=== PATIENT | female | born 1955 | race Caucasian/White ===

== ENCOUNTER 2019-09-21 12:53 | Outpatient (CLI) | payer OTHER, SELFPAY ==
--- NOTE | ~2019-09-21 | MM_ITS ---
EXAMINATION: MM screening [facility] BI w constantino HISTORY: Screening mammogram TECHNIQUE: Craniocaudal and mediolateral oblique 3-D tomosynthesis images were obtained and synthetic 2-D images were generated. CAD analysis was submitted and interpreted. COMPARISON: 08/24/2018, 07/29/2016, 10/12/2014 BREAST PARENCHYMAL COMPOSITION: There are scattered areas of fibroglandular density. FINDINGS: There is no evidence of suspicious mass, calcification, or architectural distortion to sugg est malignancy in either breast. There has been no suspicious interval change. IMPRESSION: 1. No mammographic evidence of malignancy. 2. Recommend routine screening mammography in one year. BI-RADS Category 1: Negative Reviewed, dictated and finalized at location A.
== END 2019-09-21 12:54 | disposition home or self-care (01) ==
PROVIDERS: PCP Internal Medicine; Visit Provider Internal Medicine
DX: Z12.31 Encounter for screening mammogram for malignant neoplasm of breast (principal)
CPT/HCPCS: 77063; 77067

== ENCOUNTER 2020-04-24 09:16 | Outpatient (CLI) | payer OTHER, MEDICARE, SELFPAY ==
[2020-04-24 09:58] LABS: Alanine Aminotransferase 15 U/L (4-35); Albumin Level 3.7 g/dL (3.5-5.1); Alkaline Phosphatase 59 U/L (38-126); Anion Gap 3 mmol/L (8-16); Aspartate Amino Transferase 28 U/L (14-36); Blood Urea Nitrogen 19 mg/dL (7-17); Calcium 9.2 mg/dL (8.4-10.2); Carbon Dioxide 32 mmol/L (22-30); Chloride 105 mmol/L (98-107); Cholesterol 206 mg/dL (0-200); Estimated Glomerular Filt Rate > 60; Glucose 71 mg/dL (65-105); HDL Direct 98 mg/dL; Potassium 4.9 mmol/L (3.4-5.0); Sodium 140 mmol/L (137-145); Triglycerides 50 mg/dL (<150)
[2020-04-24 10:09] LABS: LDL Cholesterol Direct 87 mg/dL
[2020-04-24 10:25] LABS: Free T4 Free Thyroxine 0.81 ng/mL (0.78-2.19)
== END 2020-04-24 09:17 | disposition home or self-care (01) ==
PROVIDERS: PCP Internal Medicine; Visit Provider Nurse Practitioner
DX: R63.4 Abnormal weight loss (principal); Z79.899 Other long term (current) drug therapy
CPT/HCPCS: 36415; 80053; 80061; 84439; 84443

== ENCOUNTER 2020-10-24 12:14 | Outpatient (CLI) | payer OTHER, MEDICARE, SELFPAY ==
[2020-10-24 13:05] LABS: LDL Cholesterol Direct 96 mg/dL
[2020-10-24 13:07] LABS: Alanine Aminotransferase 17 U/L (4-35); Albumin Level 4.2 g/dL (3.5-5.1); Alkaline Phosphatase 69 U/L (38-126); Anion Gap 3 mmol/L (8-16); Aspartate Amino Transferase 37 U/L (14-36); Bilirubin,Total 2.1 mg/dL (0.2-1.3); Blood Urea Nitrogen 17 mg/dL (7-17); Calcium 9.2 mg/dL (8.4-10.2); Carbon Dioxide 33 mmol/L (22-30); Chloride 104 mmol/L (98-107); Cholesterol 249 mg/dL (0-200); Estimated Glomerular Filt Rate > 60; Glucose 87 mg/dL (65-105); Potassium 4.2 mmol/L (3.4-5.0); Sodium 140 mmol/L (137-145); Triglycerides 58 mg/dL (<150)
[2020-10-24 13:41] LABS: Vitamin D 25 Hydroxy 43.1 ng/mL
[2020-10-24 13:43] LABS: HDL Direct 114 mg/dL
== END 2020-10-24 12:15 | disposition home or self-care (01) ==
PROVIDERS: PCP Internal Medicine; Visit Provider Nurse Practitioner
DX: Z13.220 Encounter for screening for lipoid disorders (principal); Z13.6 Encounter for screening for cardiovascular disorders; M85.89 Other specified disorders of bone density and structure, multiple sites
CPT/HCPCS: 36415; 80053; 80061; 82306

== ENCOUNTER 2021-02-08 15:49 | Outpatient (CLI) | payer OTHER, SELFPAY ==
--- NOTE | ~2021-02-08 | MM_ITS ---
EXAMINATION: MM screening [facility] w constantino HISTORY: Screening TECHNIQUE: Craniocaudal and mediolateral oblique 3-D tomosynthesis images were obtained and synthetic 2-D images were generated. CAD analysis was submitted and interpreted. COMPARISON: Comparison to multiple prior studies sequentially, with oldest reviewed study dated 03/31. BREAST PARENCHYMAL COMPOSITION: The breasts are heterogeneously dense, which may obscure small masses . FINDINGS: There is no evidence of suspicious mass, calcification, or architectural distortion to sugg est malignancy in either breast. There has been no suspicious interval change. IMPRESSION: 1. No mammographic evidence of malignancy. 2. Recommend routine screening mammography in one year. BI-RADS Category 1: Negative Reviewed, dictated and finalized at location A.
== END 2021-02-08 15:50 | disposition home or self-care (01) ==
LOC: ANHIMG 15:51
PROVIDERS: PCP Internal Medicine; Visit Provider Internal Medicine
DX: Z12.31 Encounter for screening mammogram for malignant neoplasm of breast (principal)
CPT/HCPCS: 77063; 77067

== ENCOUNTER → 2021-04-19 12:45 | Outpatient (CLI) | payer OTHER, MEDICARE, SELFPAY ==
--- NOTE | ~2021-04-19 | XR_ITS ---
EXAMINATION: XR cervical spine min 6V DATE: 04/19/2021 13:32 INDICATION: Cervical radiculopathy. TECHNIQUE: 8 views of cervical spine including flexion and extension views were obtained. COMPARISON: None. FINDINGS: There is 2 mm anterolisthesis of C6 on C7. There is 11 degrees dextroscoliosis of cervical spine. Vertebral body heights are normal. There is mildly decreased disc height at C2-C3, C3-C4, and C4-C5 and moderately decreased disc height at C6-C7. There is no abnormal motion with flexion or exte nsion. There is multilevel facet joint osteoarthritis, severe at C6-C7 and C7-T1. There is multilevel uncovertebral joint osteoarthritis, severe bilaterally at C3-C4 and C4-C5. On the right, there is mo derate neural foraminal stenosis from C3-C4 through C6-C7. On the left, there is mild neural foramina l stenosis from C3-C4 through C5-C6 and moderate neural foraminal stenosis at C6-C7. There is mild ce ntral canal stenosis at C6-C7. No prevertebral soft tissue swelling. IMPRESSION: 1. Moderate cervical spondylosis. 2. Cervical dextroscoliosis. Reviewed, dictated and finalized at location A.
== END ==
PROVIDERS: PCP Internal Medicine
DX: M99.01 Segmental and somatic dysfunction of cervical region (principal); M47.22 Other spondylosis with radiculopathy, cervical region
CPT/HCPCS: 72052

== ENCOUNTER 2021-10-02 10:48 | Emergency (ER) | payer OTHER, MEDICARE, SELFPAY ==
--- NOTE | ~2021-10-02 | CT_ITS ---
EXAMINATION: CT abdomen pelvis w con INDICATION: Abdominal pain, nausea, vomiting, diarrhea TECHNIQUE: Computed tomographic images of the abdomen and pelvis were obtained after the administrati on of 100 cc of Omnipaque 350 intravenous contrast. The dose-length product (DLP) was 01/24/2019 mGy-c m. Automated exposure control and iterative reconstruction technique were employed. COMPARISON: 01/24/2019 FINDINGS: A 10 mm nodule of the left lower lobe is new since the comparison examination. The liver, p ancreas, gallbladder, and adrenal glands are normal. There is a chronic 2.5 cm rim calcified cyst of the spleen, likely reflecting old infection or old hematoma. There is mild enlargement of the common bile duct. The kidneys are unremarkable. No pathologically enlarged abdominal or pelvic lymph nodes a re identified. There is no free intraperitoneal gas or evidence of bowel obstruction. There is mild w all thickening involving multiple nondistended loops of small bowel. A greater than expected amount o f liquid stool is also seen in the colon. There is mild lumbar spondylosis. IMPRESSION: 1. Findings suggestive of enterocolitis. 2. Mild enlargement of the common bile duct of unclear significance. 3. New 10 mm nodule of left lower lobe which could be benign or malignant (primary bronchogenic carci noma versus metastatic disease). Nonemergent dedicated CT of the chest is recommended. Reviewed, dictated and finalized at location B. IMPRESSION: 1. Findings suggestive of enterocolitis. 2. Mild enlargement of the common bile duct of unclear significance. 3. New 10 mm nodule of left lower lobe which could be benign or malignant (prim ilana bronchogenic carcinoma versus metastatic disease). Nonemergent dedicated CT of the chest is recommended.
[2021-10-02 10:50] VITALS: BP 98/76; PULSE 71; RESP 16; TEMP 36.6; O2SAT 100
[2021-10-02 12:36] LABS: Basophils Percent Auto 0.5 % (0.2-1.2); Eosinophils Percent Auto 0.8 % (0-4.4); Hematocrit 40.2 % (37.0-47.0); Hemoglobin 13.9 g/dL (12.0-15.0); Lymphocytes Absolute Auto 0.71 K/mm3 (0.9-3.2); Mean Corpuscular HGB Conc 34.6 g/dl (32-36); Mean Corpuscular Hemoglobin 30.5 pg (26-34); Mean Corpuscular Volume 88.4 fl (80-100); Mean Platelet Volume 9.6 fl (7.4-10.4); Monocytes Absolute Auto 0.4 K/mm3 (0.1-0.6); Monocytes Percent Auto 11.2 % (2.6-8.5); Neutrophils Absolute Auto 2.6 K/mm3 (1.3-6.7); Neutrophils Percent Auto 68.5 % (45.5-73.1); Platelet Count Result 200 k/mm3 (150-375); Red Blood Count 4.55 M/mm3 (4.2-5.4); Red Cell Distribution Width 13.3 % (11.5-14.5); White Blood Count 3.7 K/mm3 (4.5-10.0)
[2021-10-02 12:43] LABS: Alanine Aminotransferase 30 U/L (4-35); Alkaline Phosphatase 72 U/L (38-126); Anion Gap 5 mmol/L (8-16); Aspartate Amino Transferase 46 U/L (14-36); Bilirubin,Total 1.6 mg/dL (0.2-1.3); Blood Urea Nitrogen 18 mg/dL (7-17); Calcium 8.8 mg/dL (8.4-10.2); Carbon Dioxide 25 mmol/L (22-30); Chloride 104 mmol/L (98-107); Estimated CRCL calculation 62 ml/min; Estimated Glomerular Filt Rate > 60; Glucose 104 mg/dL (65-110); Lipase 56 U/L (23-300); Sodium 134 mmol/L (137-145)
--- NOTE | 2021-10-02 12:48 | ED.GENADULT ---
HPI - General Adult General Chief complaint: Nausea/Vomiting/Diarrhea Stated complaint: Vomiting and Diarrhea Since Thursday Time Seen by Provider: 10/02/21 12:15 Source: patient History of Present Illness HPI narrative: 66-year-old female presenting to the emergency department for evaluation of nausea vomiting diarrhea and associated abdominal pain. Patient states the symptoms began Thursday and have persisted. Patient also does report associated lightheaded and dizziness. Patient's pain is epigastric and right upper quadrant. Patient denies any prior history of gallbladder disease. Patient denies any prior history of pancreatitis and states she does not drink alcohol frequently. Related Data Allergies Allergy/AdvReac Type Severity Reaction Status Date / Time No Known Allergies Allergy Verified 10/02/21 12:08 Review of Systems Review of Systems: CONSTITUTIONAL: Denies fever, chills, or sweats. EYES: Denies visual changes, redness, or discharge. ENT: Denies rhinorrhea, congestion, sore throat, or otalgia. CARDIOVASCULAR: Denies chest pain, palpitations, or edema. RESPIRATORY: Denies cough or dyspnea. GASTROINTESTINAL: Reports nausea vomiting diarrhea GENITOURINARY: Denies dysuria or hematuria. SKIN: Denies rash or itching. MUSCULOSKELETAL: Denies back pain, joint pain, or myalgia. NEUROLOGIC: Denies headache, numbness, or weakness. PMFSH Past Medical History Medical History (Updated 10/02/21 @ 13:55 by Luis Fernando Obregon MD) Anxiety History of vaginal delivery Scoliosis Surgical History Surgical History History of ankle surgery History of surgery on wrist History of tubal ligation Family History Family History Father Hypertension Family history of hypercholesterolemia Family history of throat cancer Mother Family history of elevated blood lipids Family history of lung cancer Other Family history of heart disease in male family member before age 55 Family history of malignant neoplasm Social History Social History (Updated 05/03/21 @ 10:14 by Roberta Vo [facility]) Smoking status: Never smoker Second hand tobacco smoke exposure: No Alcohol intake: current Substance use: never Substance use type: does not use Exam Narrative: APPEARANCE: Well appearing, no pain, no distress, well-nourished. HEAD: normocephalic, atraumatic. EYES: PERRLA/EOMI, conjunctivae clear. NOSE: Normal no drainage NECK: Supple. No adenopathy, no masses. RESPIRATORY: Airway patent, respirations nonlabored. Clear to auscultation bilaterally, no rales, rhonchi, wheezing. CARDIOVASCULAR: Regular rate and rhythm without murmurs rubs or gallops. ABDOMINAL: Soft normal bowel sounds. Some epigastric and right upper quadrant tenderness to palpation. MUSCULOSKELETAL: Moves all extremities. Strength/ROM intact, No edema, No calf tenderness. SKIN: Warm, dry. Normal Color Course Course Emergency Course: Patient was updated the results of the labs and imaging. Patient did feel improved with treatment. Patient was encouraged to have close follow-up with her primary care physician and also informed on reasons to return to the emergency department. All questions concerns were addressed. Vital Signs Vital signs: Vital Signs Temperature 97.8 F 10/02/21 10:50 Pulse Rate 71 10/02/21 10:50 Respiratory Rate 16 10/02/21 10:50 Blood Pressure 98/76 L 10/02/21 10:50 Pulse Oximetry 100 10/02/21 10:50 Temperature 97.8 F 10/02/21 10:50 Pulse Rate 76 10/02/21 13:18 Respiratory Rate 16 10/02/21 10:50 Blood Pressure 107/63 10/02/21 13:18 Pulse Oximetry 100 10/02/21 10:50 Medical Decision Making Vital Signs Vital Signs: Vital Signs Temperature 97.8 F 10/02/21 10:50 Pulse Rate 71 10/02/21 10:50 Respiratory Rate 16 10/02/21 10:50 Blood Pressure 98/76 L 10/02/21 10:50 Pulse
[2021-10-02 12:55] LABS: Add Urine Microscopic? YES; Appearance Urine Cloudy (Clear); Bilirubin Urine Negative (Negative); Blood Urine Negative (Negative); Color Urine Yellow (Yellow); Glucose Urine UA Negative (Negative); Ketones Urine Trace mg/dL (Negative); Leukocyte Esterase Ur Negative LEU/UL (Negative); Mucus Urine Heavy /lpf; Nitrate Urine Negative (Negative); Protein Urine Negative (Negative); Specific Grav Ur 1.025 (1.001-1.035); Squamous Epithelial Cell Urine Rare /hpf (Few); Urobilinogen Urine Negative mg/dL (<2.0); WBC Urine 0-3 /hpf
[2021-10-02 13:17] VITALS: BP 114/70; BP 117/68; PULSE 58; PULSE 64
[2021-10-02 13:18] VITALS: BP 107/63; PULSE 76
== END 2021-10-02 14:08 | disposition home or self-care (01) ==
PROVIDERS: Emergency Provider Emergency Medicine; PCP Internal Medicine
DX: R10.84 Generalized abdominal pain (principal); R11.2 Nausea with vomiting, unspecified; R91.1 Solitary pulmonary nodule; F41.9 Anxiety disorder, unspecified
CPT/HCPCS: 36415; 74177; 80053; 81001; 83690; 85025; 99284; Q9967

== ENCOUNTER → 2021-10-10 11:24 | Outpatient (CLI) | payer OTHER, MEDICARE, SELFPAY ==
--- NOTE | ~2021-10-10 | CT_ITS ---
EXAMINATION:CT diagnostic chest wo con DATE: 10/10/2021 11:41 INDICATION: Solitary pulmonary nodule. TECHNIQUE: Computed tomography (CT) of the chest was performed without intravenous contrast. Automate d exposure control and iterative reconstruction technique were employed. The dose-length product (DLP ) was 46.03 mGy-cm. COMPARISON: CT abdomen and pelvis 10/02/2021, 01/24/2019 FINDINGS: There is mild scarring at the lung apices. There is an 11 mm nodule in left lower lobe. The re is a 2 mm nodule in right upper lobe. No pleural effusion. The heart size is normal. No pericardia l effusion. There is a 2.5 cm peripherally calcified mass in the spleen, likely an old hematoma or ol d infection. There is severe cervical and upper thoracic spondylosis. IMPRESSION: 1. 11 mm left lung lower lobe nodule suspicious for primary bronchogenic carcinoma. CT-guided biopsy is recommended. Reviewed, dictated and finalized at location A. IMPRESSION: 1. 11 mm left lung lower lobe nodule suspicious for primary bronchogenic carci noma. CT-guided biopsy is recommended.
== END ==
PROVIDERS: PCP Internal Medicine; Visit Provider Nurse Practitioner
DX: R91.1 Solitary pulmonary nodule (principal)
CPT/HCPCS: 71250

== ENCOUNTER 2021-10-21 08:45 | Outpatient (CLI) | payer OTHER, MEDICARE, SELFPAY ==
[2021-10-17 09:44] VITALS: BMI 20.2
--- NOTE | 2021-10-17 09:45 | PC.NURSE ---
Pre Radiology instructions Report to the Outpatient Waiting Room, entrance under the green pavilion located off [facility], at time __9:00AM on date __10/21/21 . Procedure Time: ___11:00AM . One visitor will be allowed to accompany the patient into the hospital. The visitor will be instructed to remain with patient at all times or leave the building. We will allow the visitor to come back to the postoperative area when patient is ready. You and your visitor will be asked a series of questions to screen for COVID 19 for your protection. A mask is required within the hospital. Pre-procedure COVID Testing Requirements: No COVID Test needed if: (proof is required; if not received patient will have Rapid Test prior to entry)- Patient has received COVID Vaccine at least 14 days prior to procedure date or- Patient has positive COVID test result within last 90 days of procedure date. COVID Test needed if above criteria is not met If not COVID vaccinated a COVID test must be conducted within 72 hours of surgery and patient is asked to isolate self from time of testing until procedure. You will go to the [place] [facility] for your COVID testing. The [facility] site is located at the corner of [address] from [facility]. You will only be called if COVID results are positive and your surgeon may reschedule your elective procedure date Patients are to have no food or drink 6 hours prior to procedure time Driving will be restricted after the procedure, you must have a person to drive you home. Labs will be drawn in preop area and once reviewed, you will be taken to radiology area for procedure. When the procedure is completed, you will be taken to outpatient where you will be monitored for several hours. You may have one visitor in this area. Other than holding anti-coagulants, patient may take other medication(s) as scheduled. Prior to your appointment date patients are instructed to hold anti-coagulants after discussing with ordering provider to stop. If unable to discontinue anti-coagulants please notify radiologist. No aspirin or warfarin (Coumadin) for 7 days prior to the procedure. No clopidogrel (Plavix), ticagrelor (Brilinta), prasugrel (Effient) or dabigatran (Pradaxa) for 5 days prior to the procedure. No rivaroxaban (Xarelto), apixaban (Eliquis), dipyridamole (Aggrenox or Persantine) or cilostazol (Pletal) for 2 days prior to the procedure. Medications to discontinue per physician: NONE Date to take last dose: Please leave all valuables, including medications, at home the day of procedure. The hospital will not accept responsibility for valuables. Wear comfortable, loose fitting clothing. Follow any additional instructions given to you from ordering provider. Telephone instructions given to ___PATIENT and asked if any additional questions and then verbalized understanding. Patient advised to call scheduling provider office or registration scheduling [phone] if any additional questions.
[2021-10-21] VITALS (9 sets, daily range): BP systolic 119–139; BP diastolic 65–83; PULSE 55–62; RESP 16–18; TEMP 36–36.6; O2SAT 98–100
--- NOTE | ~2021-10-21 | CT_ITS ---
EXAMINATION: CT biopsy lung w/imaging DATE: 10/21/2021 12:07 INDICATION: Left lung lower lobe nodule. TECHNIQUE: The procedure including the risks, benefits, and alternatives and possibility of chest tub e placement were discussed with the patient. Risks discussed included infection, approximately 1/20 r isk of symptomatic hemorrhage beyond mild hemoptysis, approximately 1/3 risk of pneumothorax, approxi mately 1/10 risk of pneumothorax severe enough to warrant chest tube placement, and rarely . The patient understood the risks and agreed to proceed. The patient was placed prone. The skin overlyin g the left lung lower lobe was prepped and draped in sterile fashion. Anesthetic was administered wi th 1% lidocaine subcutaneously. A 19 gauge outer needle was advanced under CT guidance to the lesion of interest. A 20 gauge core biopsy needle was then used to obtain 3 core biopsy specimens. The need le was removed and the entry site was cleaned and dressed. The mA was adjusted according to patient s ize. Iterative reconstruction technique was employed. The dose-length product was 218.54 mGy-cm. Afte r the biopsy, the patient experienced hemoptysis. FINDINGS: CT images demonstrate the outer needle tip adjacent to an 11 mm nodule in left lung lower l obe. IMPRESSION: 1. CT-guided core needle biopsy of an 11 mm nodule in left lung lower lobe. Reviewed, dictated and finalized at location A.
--- NOTE | ~2021-10-21 | XR_ITS ---
EXAMINATION: XR chest 1V DATE: 10/21/2021 12:01 INDICATION: Left lung nodule status post percutaneous biopsy. TECHNIQUE: A single frontal view of the chest was obtained. COMPARISON: Chest 2 views 09/23/2016 FINDINGS: There is mild scarring at the lung bases. There are airspace opacities in left lower lobe. No pleural effusion or pneumothorax. The heart size is normal. IMPRESSION: 1. Airspace opacities in left lung lower lobe, consistent with postbiopsy hemorrhage. Reviewed, dictated and finalized at location A. IMPRESSION: 1. Airspace opacities in left lung lower lobe, consistent with postbiopsy hemor rhage.
--- NOTE | ~2021-10-21 | XR_ITS ---
EXAMINATION: XR chest 1V portable DATE: 10/21/2021 12:56 INDICATION: Left lung nodule status post percutaneous biopsy. TECHNIQUE: A single frontal view of the chest was obtained. COMPARISON: Chest single view at 11:58 AM FINDINGS: There is mild scarring at the lung apices. There are airspace opacities in left lower lobe. No pleural effusion or pneumothorax. The heart size is normal. IMPRESSION: 1. Stable airspace opacities in left lung lower lobe, consistent with postbiopsy hemorrhage. Reviewed, dictated and finalized at location A. IMPRESSION: 1. Stable airspace opacities in left lung lower lobe, consistent with postbiops y hemorrhage.
--- NOTE | ~2021-10-21 | XR_ITS ---
EXAMINATION: XR chest 1V portable DATE: 10/21/2021 14:47 INDICATION: Left lung nodule status post percutaneous biopsy. TECHNIQUE: A single frontal view of the chest was obtained. COMPARISON: Chest single view at 12:51 PM FINDINGS: There is mild scarring at the lung apices. There are mild airspace opacities in left lower lobe. No pleural effusion or pneumothorax. The heart size is normal. IMPRESSION: 1. Stable mild airspace opacities in left lower lobe, consistent with postbiopsy hemorrhage. Reviewed, dictated and finalized at location A. IMPRESSION: 1. Stable mild airspace opacities in left lower lobe, consistent with postbiops y hemorrhage.
[2021-10-21 10:35] LABS: INR 1.1; Prothrombin Time 13.5 Seconds (11.1-14.7)
--- NOTE | 2021-10-21 12:25 | SUR.PHASEII ---
1215- pt family member updated.
--- NOTE | 2021-10-21 14:51 | SUR.PHASEII ---
1450- Dr Salcido called post op and reports that second xr was good. patient can be discharged.
== END 2021-10-21 15:10 | disposition home or self-care (01) ==
PROVIDERS: PCP Internal Medicine; Visit Provider Radiology Diagnostic Radiology
PROC: BB24ZZZ Computerized Tomography (CT Scan) of Bilateral Lungs (ICD-10-PCS; CPT 32408; principal; 2021-10-21 11:00)
DX: R91.1 Solitary pulmonary nodule (principal); R91.8 Other nonspecific abnormal finding of lung field
CPT/HCPCS: 32408; 36415; 71045; 85610; 88305; 88312

== ENCOUNTER 2021-11-01 14:09 | Outpatient (CLI) | payer OTHER, MEDICARE, SELFPAY ==
--- NOTE | ~2021-11-01 | DEXA_ITS ---
Bone Density Report Name: JOSE J THOMAS Age: 66 Sex: Female Ethnicity: White Date of : 1955 Indication: postmenopausal; screening for osteoporosis; height loss; prior fracture; Referring Provider: JUAN ALBERTO BOYCE Study: Bone densitometry was performed. Exam Date: November 01, 2021 Accession number: [id number] Bone Density: Region BMD T-score Z-score Classification AP Spine(L1-L4) 1.048 0.0 1.9 Normal Femoral Neck (Left) 0.614 -2.1 -0.5 Osteopenia Total Hip (Left) 0.770 -1.4 -0.1 Osteopenia World Health Organization criteria for BMD impression classify patients as: Normal (T-score at or above -1.0), Osteopenia (T-score between -1.0 and -2.5), or Osteoporosis (T-score at or below -2.5). 10-year Fracture Risk(1): Major Osteoporotic Fracture 17% Hip Fracture 3.0% Reported Risk Factors: [place] (), Neck BMD=0.614, BMI=21.6, previous fracture (1) FRAX(R) Version 3.08. Fracture probability calculated for an untreated patient. Fracture probability may be lower if the patient has received treatment. Previous Exams: Region Exam Age BMD T-score BMD Change BMD Change Date g/cm2 vs Baseline vs Previous Total Hip(Left) 11/01/2021 66 0.770 -1.4 -0.055 (-6.6%) -0.055 (-6.6%) 10/12/2018 63 0.824 -1.0 *Denotes significance at 95% confidence level, LSC for Total Hip = 0.027 g/cm2 Clinical Information Provided by Patient: Has had a low trauma fracture Has used the following medications: Prolia (i.e. denosumab), Vitamin D, Calcium Patient maximum height was 66 Menopause Age: 46 Onset of menses at age 13 Number of children 0 Impression: The patient has low bone mass, based on the Left Femoral Neck T-score. The patient has an estimated ten-year risk of hip fracture of 3% and an estimated ten-year risk of major fracture of 17%, based on the WHO FRAX algorithm. The patient has risk factors, including: previous fracture. The BMD for the Total Hip(Left) decreased, changing by -6.6% since the last DXA exam. Discussion: BONE DENSITY IS LOW AT ONE OR MORE SKELETAL SITES. THE PATIENT'S BMD AND CLINICAL RISK FACTORS CONTRIBUTE TO THIS PATIENT'S INCREASED RISK OF FRACTURE. This patient's lowest T-score is low at one or more skeletal sites. It meets the World Health Organization's (WHO) criteria for ?low bone mass? (T-score between -1.0 and -2.5). The patient's 10-year risk of hip fracture as calculated by FRAX exceeds the threshold where pharmacological therapy is recommended by the National Osteoporosis Foundation (NOF). However, all treatment decision
== END 2021-11-01 14:10 | disposition home or self-care (01) ==
PROVIDERS: PCP Internal Medicine; Visit Provider Nurse Practitioner
DX: Z78.0 Asymptomatic menopausal state (principal); M85.852 Other specified disorders of bone density and structure, left thigh
CPT/HCPCS: 77080

== ENCOUNTER 2021-12-17 09:54 | Outpatient (CLI) | payer OTHER, MEDICARE, SELFPAY ==
--- NOTE | 2021-12-17 10:38 | ECG_ITS ---
Measurements Intervals [place] Rate: 59 P: 35 [place]: 147 QRS: 43 QRSD: 72 T: 81 QT: 404 QTc: 402 Interpretive Statements SINUS BRADYCARDIA WITH SINUS ARRHYTHMIA POSSIBLE SEPTAL MYOCARDIAL INFARCTION OF INDETERMINATE AGE Electronically Signed On 12-17-2021 11:21:24 CDT by Ambrocio Mancia M.D.
[2021-12-17 11:11] LABS: Basophils Percent Auto 0.7 % (0.2-1.2); Eosinophils Absolute Auto 0.1 K/mm3 (0-0.3); Eosinophils Percent Auto 1.9 % (0-4.4); Hematocrit 39.4 % (37.0-47.0); Hemoglobin 13.5 g/dL (12.0-15.0); Immature Granulocyte Absolute 0.01 K/mm3 (0.00-0.031); Immature Granulocyte Percent A 0.2 % (0-0.5); Lymphocytes Absolute Auto 1.47 K/mm3 (0.9-3.2); Lymphocytes Percent Auto 27.4 % (18.3-44.2); Mean Corpuscular HGB Conc 34.3 g/dl (32-36); Mean Corpuscular Hemoglobin 30.6 pg (26-34); Mean Corpuscular Volume 89.3 fl (80-100); Mean Platelet Volume 9.8 fl (7.4-10.4); Monocytes Absolute Auto 0.5 K/mm3 (0.1-0.6); Monocytes Percent Auto 8.8 % (2.6-8.5); Neutrophils Absolute Auto 3.3 K/mm3 (1.3-6.7); Platelet Count Result 241 k/mm3 (150-375); Red Blood Count 4.41 M/mm3 (4.2-5.4); Red Cell Distribution Width 12.7 % (11.5-14.5); White Blood Count 5.4 K/mm3 (4.5-10.0)
[2021-12-17 11:23] LABS: Partial Thromboplastin Time 26.8 SECONDS (22.3-36.8)
== END 2021-12-17 09:55 | disposition home or self-care (01) ==
PROVIDERS: PCP Internal Medicine; Visit Provider Urology
DX: N39.3 Stress incontinence (female) (male) (principal); Z01.818 Encounter for other preprocedural examination; R00.1 Bradycardia, unspecified
CPT/HCPCS: 36415; 85025; 85730; 86850; 86900; 86901; 87077; 87086; 87186; 93005

== ENCOUNTER 2022-05-29 11:04 | Outpatient (CLI) | payer OTHER, MEDICARE, SELFPAY ==
--- NOTE | ~2022-05-29 | MM_ITS ---
EXAMINATION: MM screening [facility] BI w constantino HISTORY: Screening TECHNIQUE: Craniocaudal and mediolateral oblique 3-D tomosynthesis images were obtained and synthetic 2-D images were generated. CAD analysis was submitted and interpreted. COMPARISON: Comparison to multiple prior studies sequentially, with oldest reviewed study dated 08/2014. BREAST PARENCHYMAL COMPOSITION: The breasts are heterogeneously dense, which may obscure small masses FINDINGS: There is no evidence of suspicious mass, calcification, or architectural distortion to sugg est malignancy in either breast. There has been no suspicious interval change. IMPRESSION: 1. No mammographic evidence of malignancy. 2. Recommend routine screening mammography in one year. BI-RADS Category 1: Negative Reviewed, dictated and finalized at location A. [facility] REPRESENTATIVE
== END 2022-05-29 11:05 | disposition home or self-care (01) ==
LOC: ANHIMG 11:06
PROVIDERS: PCP Internal Medicine; Visit Provider Internal Medicine
DX: Z12.31 Encounter for screening mammogram for malignant neoplasm of breast (principal)
CPT/HCPCS: 77063; 77067

== ENCOUNTER 2022-07-29 13:14 | Outpatient (CLI) | payer OTHER, MEDICARE, SELFPAY ==
[2022-07-29 15:29] LABS: Basophils Absolute Auto 0.1 K/mm3 (0.0-0.1); Eosinophils Absolute Auto 0.1 K/mm3 (0-0.3); Eosinophils Percent Auto 2.2 % (0-4.4); Hemoglobin 13.4 g/dL (12.0-15.0); Immature Granulocyte Absolute 0.02 K/mm3 (0.00-0.031); Immature Granulocyte Percent A 0.3 % (0-0.5); Lymphocytes Absolute Auto 1.94 K/mm3 (0.9-3.2); Lymphocytes Percent Auto 30.7 % (18.3-44.2); Mean Corpuscular HGB Conc 32.7 g/dl (32-36); Mean Corpuscular Hemoglobin 30.2 pg (26-34); Mean Corpuscular Volume 92.3 fl (80-100); Mean Platelet Volume 9.9 fl (7.4-10.4); Monocytes Absolute Auto 0.4 K/mm3 (0.1-0.6); Monocytes Percent Auto 6.8 % (2.6-8.5); Neutrophils Absolute Auto 3.7 K/mm3 (1.3-6.7); Platelet Count Result 248 k/mm3 (150-375); Red Blood Count 4.44 M/mm3 (4.2-5.4); Red Cell Distribution Width 12.9 % (11.5-14.5); White Blood Count 6.3 K/mm3 (4.5-10.0)
[2022-07-29 15:37] LABS: Alanine Aminotransferase 22 U/L (6-35); Albumin Level 4.2 g/dL (3.5-5.1); Alkaline Phosphatase 72 U/L (38-126); Anion Gap 5 mmol/L (8-16); Aspartate Amino Transferase 33 U/L (14-36); Bilirubin,Total 1.1 mg/dL (0.2-1.3); Blood Urea Nitrogen 13 mg/dL (7-17); Calcium 8.8 mg/dL (8.4-10.2); Carbon Dioxide 30 mmol/L (22-30); Chloride 102 mmol/L (98-107); Estimated Glomerular Filt Rate > 60; Glucose 93 mg/dL (65-110); Potassium 3.9 mmol/L (3.4-5.0); Sodium 137 mmol/L (137-145)
[2022-07-29 15:39] LABS: Partial Thromboplastin Time 27.4 SECONDS (22.3-36.8); Prothrombin Time 13.2 Seconds (11.1-14.7)
== END 2022-07-29 13:15 | disposition home or self-care (01) ==
LOC: ANHSURGERY 14:01
PROVIDERS: PCP Internal Medicine; Visit Provider Urology
DX: Z01.818 Encounter for other preprocedural examination (principal)
CPT/HCPCS: 36415; 80053; 85025; 85610; 85730; 86850; 86900; 86901; 87077; 87086; 87088; 87186

== ENCOUNTER 2022-08-11 02:43 | Day surgery (SDC) | payer OTHER, MEDICARE, SELFPAY ==
--- NOTE | 2022-07-29 13:33 | PC.NURSE ---
Addendum entered by Humaira Newsome RN 07/29/22 15:24: PATIENT AWARE SURGERY TIME IS 0730 NOT 0700 Original Note: PRE-OP INSTRUCTIONS, PLEASE READ CAREFULLY Report to the Outpatient Waiting Room, entrance under the green pavilion located off [facility], at time _0600_ on date _08/11/22_. Planned Procedure Time: _0700_. PACK A SMALL OVERNIGHT BAG AND LEAVE IN THE CAR Time changes happen often and if your time is changed the preop area will call you the afternoon before. - You and your visitor will be asked to self-screen and do not enter if you have any COVID symptoms. - Only one visitor is requested with a max of two and NO children visitors are allowed at this time. - The patient visitor may be requested to leave or wait in car when not with patient due to distancing restrictions. - A mask is optional within the hospital. -VISITING HOURS 8AM-8PM Patients may have clear liquids (water, carbonated beverages, clear teas, apple juice) until 3 hours prior to surgery (0430 AM) with a maximum of 20 ounces. - No food from midnight until time of surgery Take the following medications with a SIP of water the morning of surgery: _CITALOPRAM, ADDERALL _ Medications to discontinue per physician _STATES - VITAMINS/SUPPLEMENTS [address] VILLEGAS, Date to take last dose 08/03/22_ Please no make-up, nail tajik, hairspray, perfume, deodorant, or body powder the day of surgery. No jewelry (including any body piercings) or valuables the day of surgery, leave them at home. Please take a shower or bath the night before, or the morning of, surgery with an antibacterial soap. Wear comfortable, loose fitting clothing. - Jewelry must be removed prior to entering the operating room. Rings and piercings that are not removed may be cut off. - The hospital will not accept responsibility for valuables. - Please leave all valuables, including medications, at home the day of surgery. If you are going home after surgery, a licensed drive away driver must drive you home. - NO public transportation without another adult if you receive anesthesia. - We recommend that an adult stay with you for 24 hours following discharge. - We also recommend that you do not drive, make important decision, drink alcoholic beverages, or take any drugs that were not prescribed by your health care provider for at least 24 hours after your discharge time. Follow any additional instructions given to you from your surgeon. If you or anyone in your household have experienced Covid symptoms in the past week, please notify your surgeon or the nurse liaison at the phone number below for possible testing. Instructions given to _PATIENT_and asked if any additional questions and then verbalized understanding. Patient advised to call surgeon office or pre surgery nurse liaison [phone] if any additional questions.
[2022-07-29 14:17] VITALS: BP 130/72; PULSE 66; RESP 18; TEMP 36.8; O2SAT 100; BMI 20.7
--- NOTE | 2022-08-08 15:02 | PM.IMHP ---
H&P: HPI History of Present Illness Date/Time: 08/08/22 15:02 Chief Complaint: uterine prolapse Narrative: 66-year-old female with uterine prolapse admitted for robotic supracervical hysterectomy and bilateral salpingo-oophorectomy with fish sacral colpopexy and possible sling. Risks and benefits reviewed great detail [facility] Past Medical History Medical History ADD (attention deficit disorder) Anxiety Histoplasmosis History of vaginal delivery Hyperlipidemia Overactive bladder Scoliosis Surgical History Surgical History History of ankle surgery History of surgery on wrist History of tubal ligation Family History Family History Father Hypertension Family history of hypercholesterolemia Family history of throat cancer Mother Family history of elevated blood lipids Family history of lung cancer Sibling Sjogren syndrome with other organ involvement Other Family history of heart disease in male family member before age 55 Family history of malignant neoplasm Social History Social History Smoking status: Never smoker Second hand tobacco smoke exposure: Yes (BROTHER) Alcohol intake: current Alcohol use details: 1/MONTH Substance use: never Substance use type: does not use Lack of Transportation: No Lack of Food: Never True Current Housing: I Have Housing Concerned About Future Housing: No Difficulty Paying Gas/Electric Bills: No Difficulty Paying for Meds: No Currently Unemployed: No Education: Grade School Difficulty w/ Childcare or Family Care: No Living arrangements: with family Spiritual care concerns: No Meds Home Medications and Allergies Home Medications Medication Instructions Recorded Confirmed Type citalopram 20 mg tablet 20 mg PO QAM #90 tabs 05/20/22 07/29/22 Rx solifenacin 5 mg tablet 1 tablet PO QAM 07/10/22 07/29/22 History alendronate 70 mg tablet (Fosamax) 70 mg PO WEEKLY #12 tabs 07/22/22 07/29/22 Rx dextroamphetamine-amphetamine ER 20 mg PO QAM #30 caps 07/25/22 07/29/22 Rx 20 mg 24hr capsule,extend release Immunostart 2 tab-cap QAM 07/29/22 07/29/22 History Vitamin K2+D3 1 tab-cap QAM 07/29/22 07/29/22 History multivitamin 1 tablet QA 07/29/22 07/29/22 History Allergies Allergy/AdvReac Type Severity Reaction Status Date / Time No Known Allergies Allergy Verified 07/29/22 14:09 Exam Const: General: cooperative, healthy appearing and comfortable Nutritional Appearance: average body habitus Orientation/consciousness: oriented to person, oriented to place and oriented to time HENMT: Head: normal to inspection Resp: Effort & Inspection: normal respiratory effort Cardio: Rate: regular rate Rhythm: regular rhythm Heart sounds: S1 normal heart sound present and S2 normal heart sound present GI: Inspection: normal to inspection : Speculum Exam - Vagina: normal appearance of the vagina Speculum Exam - Cervix: normal appearance of the cervix Bimanual exam- vagina & uterus: soft and other ( 2nd to third-degree prolapse present. Cystocele present) Bimanual Exam- Adnexa, other: normal adnexae Assessment and Plan Assessment and plan (1) Uterine prolapse: Code(s): N81.4 - Uterovaginal prolapse, unspecified Status: Acute Plan supracervical robotic hysterectomy and bilateral salpingo-oophorectomy
--- NOTE | 2022-08-10 11:30 | PM.IMHP ---
H&P: HPI History of Present Illness Date/Time: 08/10/22 11:30 Chief Complaint: Pelvic organ prolapse, stress incontinence Narrative: This 66-year-old female with history of pelvic organ prolapse. We resect the fix her prolapse several months ago. She decided to for the procedure. Her prolapse symptoms have worsened. She presents for procedure for her prolapse as well as for stress incontinence Review of Systems Review of Systems: All systems reviewed & are unremarkable except as noted in HPI and below PMFSH Past Medical History Medical History ADD (attention deficit disorder) Anxiety Histoplasmosis History of vaginal delivery Hyperlipidemia Overactive bladder Scoliosis Surgical History Surgical History History of ankle surgery History of surgery on wrist History of tubal ligation Family History Family History Father Hypertension Family history of hypercholesterolemia Family history of throat cancer Mother Family history of elevated blood lipids Family history of lung cancer Sibling Sjogren syndrome with other organ involvement Other Family history of heart disease in male family member before age 55 Family history of malignant neoplasm Social History Social History Smoking status: Never smoker Second hand tobacco smoke exposure: Yes (BROTHER) Alcohol intake: current Alcohol use details: 1/MONTH Substance use: never Substance use type: does not use Lack of Transportation: No Lack of Food: Never True Current Housing: I Have Housing Concerned About Future Housing: No Difficulty Paying Gas/Electric Bills: No Difficulty Paying for Meds: No Currently Unemployed: No Education: Grade School Difficulty w/ Childcare or Family Care: No Living arrangements: with family Spiritual care concerns: No Meds Home Medications and Allergies Home Medications Medication Instructions Recorded Confirmed Type citalopram 20 mg tablet 20 mg PO QAM #90 tabs 05/20/22 07/29/22 Rx solifenacin 5 mg tablet 1 tablet PO QAM 07/10/22 07/29/22 History alendronate 70 mg tablet (Fosamax) 70 mg PO WEEKLY #12 tabs 07/22/22 07/29/22 Rx Immunostart 2 tab-cap QAM 07/29/22 07/29/22 History Vitamin K2+D3 1 tab-cap QAM 07/29/22 07/29/22 History multivitamin 1 tablet QAM 07/29/22 07/29/22 History dextroamphetamine-amphetamine ER 20 mg PO QAM #30 caps 08/08/22 Rx 20 mg 24hr capsule,extend release Allergies Allergy/AdvReac Type Severity Reaction Status Date / Time No Known Allergies Allergy Verified 07/29/22 14:09 Exam Narrative: No acute distress Normal breathing Alert orient x3 Cystocele a +2 [place] at 0 Assessment and Plan Assessment and plan (1) Uterine prolapse: Code(s): N81.4 - Uterovaginal prolapse, unspecified Status: Acute (2) LILLY (stress urinary incontinence, female): Code(s): N39.3 - Stress incontinence (female) (male) Status: Acute Plan Robotic sacral colpopexy and urethral sling. Understands risks of bleeding, infection, damage surrounding organs, damage to the bowel or urinary tract, recurrence of prolapse, postoperative voiding dysfunction including incontinence and retention, vaginal mesh extrusion, urinary tract mesh erosion, obstructive voiding requiring secondary procedure, hip and leg pain, dyspareunia. She agrees to proceed
[2022-08-11] VITALS (12 sets, daily range): BP systolic 103–138; BP diastolic 59–77; PULSE 53–69; RESP 12–20; TEMP 36.1–36.8; O2SAT 97–100
[2022-08-11] MEDS: LACTATED RINGERS 1,000 ML 30 ML IV CONT ×2 (06:30→10:34)
[2022-08-11] MEDS: ACETAMINOPHEN 500 MG TABLET 1000 MG PO (06:31)
[2022-08-11] MEDS: KETOROLAC 15 MG/ML VIAL (*BKC) IV PUSH ×2 (06:31→19:00)
--- NOTE | 2022-08-11 06:56 | WPDANESEPPF ---
Anes - Initial Pre Proc Eval Procedure: Operation Date: 08/11/22 07:30 Proposed Procedures p Robotic Sacrocolpopexy, Urethral Sling - Tristin Jean Baptiste MD s Robotic Assisted Supracervical Hysterectomy With Bilateral Salpingo-Oophorectomy - Ermias Ontiveros MD Date/Time: 08/11/22 06:56 Surgeon: Tristin Jean Baptiste MD Pre Op Diagnosis: midline cystocele uterine prolapse, stress incont Patient Data Age: 66 Gender: F Height: 1.65 m Weight: 54.7 kg Last Vital Signs Temp 36.5 C 08/11/22 06:17 Pulse 66 08/11/22 06:17 Resp 18 08/11/22 06:17 BP 114/69 08/11/22 06:17 Pulse Ox 100 08/11/22 06:17 O2 Del Method Room Air 08/11/22 06:17 Allergies Allergy/AdvReac Type Severity Reaction Status Date / Time No Known Allergies Allergy Verified 07/29/22 14:09 Home Medications Medication Instructions Recorded Confirmed Type citalopram 20 mg tablet 20 mg PO QAM #90 tabs 05/20/22 08/11/22 Rx solifenacin 5 mg tablet 1 tablet PO QAM 07/10/22 08/11/22 History alendronate 70 mg tablet (Fosamax) 70 mg PO WEEKLY #12 tabs 07/22/22 08/11/22 Rx Immunostart 2 tab-cap PO QAM 07/29/22 08/11/22 History Vitamin K2+D3 1 tab-cap QAM 07/29/22 08/11/22 History multivitamin 1 tablet PO QAM 07/29/22 08/11/22 History dextroamphetamine-amphetamine ER 20 mg PO QAM #30 caps 08/08/22 08/11/22 Rx 20 mg 24hr capsule,extend release Patient hx anesthesia problems: none Family hx anesthesia problems: none Results Review: All pre-operative results and documents have been reviewed as part of the pre-operative evaluation. [facility] Past Medical History Medical History ADD (attention deficit disorder) Anxiety Histoplasmosis History of vaginal delivery Hyperlipidemia Overactive bladder Scoliosis Surgical History Surgical History History of ankle surgery History of surgery on wrist History of tubal ligation Family History Family History Father Hypertension Family history of hypercholesterolemia Family history of throat cancer Mother Family history of elevated blood lipids Family history of lung cancer Sibling Sjogren syndrome with other organ involvement Other Family history of heart disease in male family member before age 55 Family history of malignant neoplasm Social History Social History Smoking status: Never smoker Second hand tobacco smoke exposure: Yes (BROTHER) Alcohol intake: current Alcohol use details: 1/MONTH Substance use: never Substance use type: does not use Lack of Transportation: No Lack of Food: Never True Current Housing: I Have Housing Concerned About Future Housing: No Difficulty Paying Gas/Electric Bills: No Difficulty Paying for Meds: No Currently Unemployed: No Education: Grade School Difficulty w/ Childcare or Family Care: No Living arrangements: with family Spiritual care concerns: No Anes - Eval Final PreProcedure Day of Procedure 08/11/22 06:56 Patient weight: normal Heart: regular rate and rhythm Lungs: clear to auscultation Airway: Mallampati scale class 1 Neurological: alert and oriented Last oral intake: >/= 8 hours ASA classification: II Emergent: no Anesthetic plan: proceed Anesthesia type and monitoring: general ETT and standard monitoring Results Review: All pre-operative results and documents have been reviewed as part of the pre-operative evaluation. Informed Consent: The patient's anesthetic plan and its attendant risks and benefits were discussed with the patient/family/POA. Questions were solicited and answers provided to the satisfaction of the patient/family/POA.
--- NOTE | 2022-08-11 07:11 | WPDHPUPDATE1 ---
History and Physical Update Update Date/Time: 08/11/22 07:11 History and Physical has been reviewed, including an updated exam of the patient. There are NO changes in the patient's condition. Risks, benefits, and alternatives have been discussed and questions answered. Patient agrees to proceed with procedure.
--- NOTE | 2022-08-11 07:37 | WPDHPUPDATE1 ---
History and Physical Update Update Date/Time: 08/11/22 07:37 History and Physical has been reviewed, including an updated exam of the patient. There are NO changes in the patient's condition. Risks, benefits, and alternatives have been discussed and questions answered. Patient agrees to proceed with procedure.
[2022-08-11] MEDS: ceFAZolin 2 GM/D5W 50 ML 2 GM/50 ML BAG IVPB (07:41)
[2022-08-11] MEDS: metroNIDAZOLE 500 MG/ISO 100ML 500 MG/100 ML BAG 100 MG IVPB ×3 (07:58→23:08)
--- NOTE | 2022-08-11 08:31 | W.PM.PROC2 ---
Procedure Note - Detailed Date of Procedure 08/11/22 Pre-op Diagnosis midline cystocele uterine prolapse, stress incont Post-op Diagnosis Same Procedure Performed Robotic supracervical hysterectomy and bilateral salpingo-oophorectomy. This was done conjunction Dr. Jean Baptiste robotic supracervical sacral colpopexy Surgeon Ermias Ontiveros MD Anesthesia General Indications this is a 66-year-old female with symptomatic uterine prolapse Findings small uterus with very small ovaries and tubes. Description of Procedure The patient was prepped draped and placed in the dorsal lithotomy position. Under excellent general trach anesthesia doctor Jean Baptiste proceeded to dock the robot. I placed a 16 Sammarinese catheter drained clear urine and the Neville's cannula inserted the cervix attached to the single-tooth to be used later for uterine ablation. After Dr. Jean Baptiste head placed the robot and docked it. I proceeded with hysterectomy. The left round ligament grasped, burned, cut. Anteriorly a bladder flap formed by sharply dissecting the peritoneum and reflecting the bladder caudally from the uterus and cervix to the opposite round ligament which was clamped, burned, cut. Next the infundibulopelvic structure on the left was skeletonized serially clamping burning cutting to remove the ovary and tube and this was brought to the level of previously cut round ligament. In like fashion removing the right adnexa, the infundibulopelvic structure was skeletonized clamping burning cutting and bring this to the round ligament. The cardinal and broad ligaments were then serially skeletonized along left edge of the uterus clamping burning cutting until the uterine vessels could be seen. These were individually clamped, burned, cut. In like fashion the cardinal and broad ligaments on the right were serially skeletonized clamping burning cutting and hugging the cervix uterus until the uterine vessels could be seen on the right. These were individually clamped, burned, cut. At that point a supracervical incision was made and this was then placed in an Endo-Catch Dr. Francisco took over from there. Blood loss to this point was 5cc all sponge, needle, instrument counts were correct. Everything was stable at the time the console Estimated Blood Loss 5 Drains No Packing No Pathology Yes Complications No immediate complications Condition Stable Disposition No change
[2022-08-11] MEDS: BUPIVACAINE/EPINEPHRINE 0.5% 10 ML VIAL INFILTRATE (10:10)
--- NOTE | 2022-08-11 10:31 | W.PM.PROC2 ---
Procedure Note - Detailed Date of Procedure 08/11/22 Pre-op Diagnosis midline cystocele, uterine prolapse, stress incont Post-op Diagnosis Same Procedure Performed Robotic assisted laparoscopic sacral colpopexy Urethral sling Cystoscopy Surgeon Tristin Jean Baptiste MD Anesthesia General Indications A woman with uterine prolapse as well as stress incontinence. She desires surgical correction. She is here for the above. She understands risks of bleeding, infection, diskitis, damage to surrounding organs, bowel injury, bowel obstruction, mesh related complications including exposure and extrusion, postoperative voiding dysfunction including incontinence and retention, need for ancillary procedures, dyspareunia, recurrence of prolapse, and other perioperative intraoperative postoperative complications. She agrees to proceed. Findings See below Description of Procedure She was correctly identified. Informed consent obtained. She from the operating room. She was given general anesthesia. She was given appropriate perioperative antibiotics. She was placed a low lithotomy position. Pressure points were padded. A time-out performed. I marked out the skin 3 fingerbreadths cephalad to the umbilicus. I anesthetized the skin. I incised the skin. I dissected down to the fascia. I grasped the fascia with Rai clamps. I entered the fascia sharply in a Noel type technique. I placed sutures for later fascial closure. I placed a midline trocar. I examined the abdomen. There is no sign of any injury. Under direct vision I placed 2 additional trocars in the right upper quadrant and 2 additional trocars the left upper quadrant. She was placed in steep Trendelenburg. The robot was docked. Her borough coordinator completed their portion of the procedure. Please see that operative report for details. I then sat at the console. The Sizer in the vagina created plane on the anterior and posterior vaginal wall. I took great care not to injure the vagina, bladder, or rectum. I introduced the mesh into the abdomen. I sewed the anterior leaflet of mesh on the anterior vaginal wall. I sewed the posterior leaflet of mesh on the posterior vaginal wall. This was done with several sutures of 2 0 Richardson-Neville. I reflected the colon laterally. I opened the posterior peritoneum over the sacral promontory. I carried this into the cul-de-sac. I freed up the edges for later retroperitonealization. Both ureters were visualized throughout the entire dissection. I located the anterior longitudinal ligament the sacrum. I cleaned off all fatty tissues. I then tensioned my mesh appropriately. I did a vaginal exam the bedside. I assured prolapse reduction without undue tension. I then sewed the proximal leaflet of mesh onto the anterior longitudinal ligament of the sacrum with several sutures of 2 0 Richardson-Neville. I then used a 2 0 Monocryl to completely and meticulously retroperitonealized all mesh. Again the ureter was visualized and kept clear. I allowed the colon to go back to its normal anatomic location. There is no sign of any impingement. The specimen was then removed. All ports removed. Fascia was tied down. Skin was closed with Monocryl and surgical glue. She was repositioned and prepped for urethral sling. I marked out the inner thigh incisions. I anesthetized the skin and made the incisions. I then anesthetized the anterior vaginal wall at the mid urethra. I made a 1 cm incision. I dissected out laterally taking great care not to injure the urethra or the vaginal wall. Changes of atrophic vaginitis were noted, but otherwise vaginal tissues were normal. I passed the helical trocars. I did this 1st on the left and then on the right. This was done from the thigh incision towards the vaginal incision. Sling was connected to the trocars and brought out the thigh incision. I tensioned the sling appropriately. I cut and the plastic sheaths. I closed the incision
[2022-08-11] MEDS: KCL 20 MEQ/D5/0.45% SOD CHL 1,000 ML 100 ML IV CONT (12:03)
[2022-08-11] MEDS: HYDROcodone/acetaminophen (*CRX) 5-325 MG TABLET 1 TAB PO (19:00)
[2022-08-12] MEDS: KCL 20 MEQ/D5/0.45% SOD CHL 1,000 ML 100 ML IV CONT (00:55)
[2022-08-12 05:30] VITALS: BP 97/51; PULSE 58; RESP 16; TEMP 36.6
[2022-08-12] MEDS: HYDROcodone/acetaminophen (*CRX) 5-325 MG TABLET 1 TAB PO ×2 (05:45→10:03)
[2022-08-12] MEDS: KETOROLAC 15 MG/ML VIAL (*BKC) IV PUSH (05:45)
[2022-08-12] MEDS: metroNIDAZOLE 500 MG/ISO 100ML 500 MG/100 ML BAG 100 MG IVPB (06:33)
--- NOTE | 2022-08-12 07:43 | PM.DS ---
DS: Admitting Diagnosis Discharge Date 08/12/2022 Admitting Diagnosis uterine prolapse/stress incontinence DS: Discharge Diagnosis Discharge Diagnosis (1) LILLY (stress urinary incontinence, female): Code(s): N39.3 - Stress incontinence (female) (male) Status: Acute (2) Uterine prolapse: Code(s): N81.4 - Uterovaginal prolapse, unspecified Status: Acute DS: Summary Hospital Course Reason for hospitalization: patient was admitted for robotic supracervical hysterectomy and bilateral salpingo-oophorectomy along with sling and robotic sacral colpopexy Hospital Course: her procedure was unremarkable. Please see Dr. Jean Baptiste and I will review his operative reports. The patient remained afebrile. She was up, voiding without difficulty, ambulating, eating regular diet, and generally without complaints. Time Spent with Patient Time attestation: Total time spent providing and/or coordinating discharge services: Exam Const: General: cooperative, healthy appearing, comfortable and average body habitus Orientation/consciousness: oriented to person, oriented to place and oriented to time HENMT: Head: normal to inspection Resp: Effort & Inspection: normal respiratory effort Cardio: Rate: regular rate Rhythm: regular rhythm Heart sounds: S1 normal heart sound present and S2 normal heart sound present GI: Inspection: normal to inspection and incision ( Wounds are clean dry and intact) DS: Data Data Completed and Pending Pending studies at discharge: Pending at discharge 08/11/22 08:20 Surgical [PTH] Routine Discharge Plan Discharge Patient Disposition: Home, Self-Care Discharge Instructions: No lifting >20lb, exercise for 6 weeks No tub bath or pool for 2 weeks No intercourse for 6 weeks Stand Alone Forms: General Discharge Instructions Follow-up/Referrals: Tristin Jean Baptiste MD [Physician] - (6 weeks) Ermias Kirkland MD [Physician] - Discharge Medications: New docusate sodium [Colace] 100 mg capsule 100 mg PO BID Qty: 60 0RF hydrocodone-acetaminophen 5-325 mg tablet 1 tablet PO Q6H PRN (Reason: pain) Qty: 20 0RF Continued solifenacin 5 mg tablet 1 tablet PO QAM multivitamin Tablet 1 tablet PO QAM Immunostart 2 tab-cap PO QAM Vitamin K2+D3 1 tab-cap QAM citalopram 20 mg tablet 20 mg PO QAM Qty: 90 1RF Rx Instructions: TAKE 1 TABLET BY MOUTH DAILY alendronate [Fosamax] 70 mg tablet 70 mg PO WEEKLY Qty: 12 2RF Label Comments: TAKES ON MONDAYS dextroamphetamine-amphetamine 20 mg capsule,extended release 24hr 20 mg PO QAM Qty: 30 0RF
--- NOTE | 2022-08-12 07:46 | PM.GYNPNOP ---
OPENER - A/P Postoperative Procedures: Procedures Operation Date: 08/11/22 07:30 Actual Procedure Side Surgeon p Robotic Sacrocolpopexy, Urethral Sling, Cystoscopy Not Applicable Tristin Jean Baptiste MD s Robotic Assisted Supracervical Hysterectomy With Bilateral Salpingo-Oophorectomy Bilateral Ermias Ontiveros MD Postoperative day: 1 Postoperative status: doing well Postoperative plan: routine post-op care, advance diet and discharge Time Spent With Patient Time: Total time spent is greater than 50% in coordination of care (as documented) at patient's floor/unit and/or counseling patient: Time with patient: less than 15 minutes OPENER- PN:Subj Post-Op Subjective Date/time seen: 08/12/22 07:46 Subjective: patient reports feeling better, patient has no complaints and patient desires discharge Exam Const: General: cooperative, healthy appearing and comfortable Nutritional Appearance: average body habitus Orientation/consciousness: oriented to person, oriented to place and oriented to time HENMT: Head: normal to inspection Resp: Effort & Inspection: normal respiratory effort Cardio: Rate: regular rate Rhythm: regular rhythm Heart sounds: S1 normal heart sound present and S2 normal heart sound present GI: Inspection: normal to inspection and incision ( clean dry and intact) OPENER - PN: Obj Data Vital Signs Vital Signs: Vital Signs - 24 hr 08/11/22 10:34 08/11/22 10:37 08/11/22 10:50 Temperature 98.2 F Pulse Rate 63 56 L 55 L Respiratory Rate 12 16 16 Blood Pressure 138/69 105/59 L 128/72 Pulse Oximetry 100 100 100 Oxygen Delivery Simple Face Mask Simple Face Mask Simple Face Mask Oxygen Flow Rate 8 8 8 08/11/22 11:04 08/11/22 11:15 08/11/22 11:25 Temperature 97.0 F L Pulse Rate 53 L 65 67 Respiratory Rate 16 20 20 Blood Pressure 131/71 124/72 117/65 Pulse Oximetry 100 100 97 Oxygen Delivery Simple Face Mask Room Air Room Air Oxygen Flow Rate 8 08/11/22 11:40 08/11/22 11:44 08/11/22 12:30 Temperature 97.5 F L Pulse Rate 69 64 60 Respiratory Rate 20 20 18 Blood Pressure 121/68 121/68 106/62 Pulse Oximetry 100 100 100 Oxygen Delivery Room Air Room Air Oxygen Flow Rate 08/11/22 12:30 08/11/22 16:42 08/11/22 16:42 Temperature 97.9 F Pulse Rate 58 L Respiratory Rate 16 Blood Pressure 137/77 Pulse Oximetry 100 Oxygen Delivery Room Air Room Air Oxygen Flow Rate 08/11/22 19:00 08/12/22 05:30 Temperature 97.9 F 97.8 F Pulse Rate 68 58 L Respiratory Rate 16 16 Blood Pressure 103/59 L 97/51 L Pulse Oximetry Oxygen Delivery Oxygen Flow Rate Intake/Output Intake/Output: Intake & Output 08/09/22 08/10/22 08/11/22 08/12/22 23:59 23:59 23:59 23:59 Intake Total 900 1850 Output Total 240 1800 Balance 660 50 Meds/Results Medications: Active Medications Generic Name Dose Route Start Last Admin Trade Name Freq PRN Reason Stop Dose Admin Acetaminophen 650 mg 08/11/22 11:45 Acetaminophen 325 Mg Tablet PO Q4H PRN Mild Pain (1-3) or Fever Hydrocodone Bitart/Acetaminophen 1 tab 08/11/22 11:45 08/12/22 05:45 Hydrocodone/Acetaminophen (*Crx) 5-325 Mg Tablet PO 1 tab Q4H PRN Administration Pain Rated 4-5 Cephalexin HCl 500 mg 08/12/22 13:00 Cephalexin 500 Mg Capsule PO QID ABIMAEL Citalopram Hydrobromide 20 mg 08/12/22 09:00 Citalopram Hydrobromide 20 Mg Tablet PO QAM ABIMAEL Diphenhydramine HCl 25 mg 08/11/22 11:45 Diphenhydramine Hcl Inj 50 Mg/Ml Vial IV PUSH Q6H PRN Itching Docusate Sodium 100 mg 08/12/22 09:00 Docusate Sodium 100 Mg Capsule PO DAILY [facility] Enoxaparin Sodium 30 mg 08/12/22 09:00 Enoxaparin 30 Mg/0.3 Ml Syringe SUB-Q DAILY ABIMAEL Metronidazole 500 mg in 100 mls @ 100 mls/hr 08/11/22 14:00 08/12/22 06:33 Flagyl 500 Mg/Iso Soln 100 Ml IVPB 100 mls/hr Q8H ABIMAEL Administration Potassium Chloride/Dextrose/Sod Cl 1,000 mls @ 100 m
[2022-08-12 08:07] LABS: Estimated CRCL calculation 58 ml/min; Estimated Glomerular Filt Rate > 60
[2022-08-12 08:20] VITALS: BP 107/53; PULSE 64; RESP 18; TEMP 36.7; O2SAT 100
[2022-08-12] MEDS: CITALOPRAM HYDROBROMIDE 20 MG TABLET PO (08:36)
[2022-08-12] MEDS: DOCUSATE SODIUM 100 MG CAPSULE PO (08:36)
--- NOTE | 2022-08-12 09:52 | WPDANESPN ---
Anes - Prog Note Post-Op Date/Time: 08/12/22 09:52 Cardiovascular status: normal Respiratory status: normal Airway patency: baseline Mental status: baseline Post-Op hydration status: normal Vital Signs: Last Vital Signs Temp 36.7 C 08/12/22 08:20 Pulse 64 08/12/22 08:20 Resp 18 08/12/22 08:20 BP 107/53 L 08/12/22 08:20 Pulse Ox 100 08/12/22 08:20 O2 Del Method Room Air 08/12/22 08:40 O2 Flow Rate 8 08/11/22 11:04 Pain Score (VAS): 310 I/O: Intake & Output 08/11/22 08/12/22 08/12/22 23:59 07:59 15:59 Intake Total 50 1950 Output Total 1800 Balance 50 150 Laboratory Tests 08/12/22 07:53 08/12/22 07:53 Creatinine 0.70 Estim Creat Clear Calc 58 Estimated GFR > 60 Post-procedural complaints: none Patient Feedback: Patient satisfied with anesthetic care.
[2022-08-12] MEDS: ENOXAPARIN 30 MG/0.3 ML SYRINGE SUB-Q (09:59)
== END 2022-08-12 12:02 | disposition home or self-care (01) ==
LOC: ANHSURGERY 10:38 → ANHOB2 11:48
PROVIDERS: Obstetrics & Gynecology; PCP Internal Medicine; Visit Provider Urology
PROC: (CPT 57425; principal; 2022-08-11 07:30)
PROC: (CPT 58542; 2022-08-11 07:30)
DX: N81.4 Uterovaginal prolapse, unspecified (principal); N39.3 Stress incontinence (female) (male); F98.8 Other specified behavioral and emotional disorders with onset usually occurring in childhood and adolescence; E78.5 Hyperlipidemia, unspecified; F41.9 Anxiety disorder, unspecified
CPT/HCPCS: 57425; 57288; 58542; S2900 ×2; 36415; 80053; 82565; 85025; 85610; 85730; 86850; 86900; 86901; 87077; 87086; 87088; 87186; 88307; 99199; A9270; C1758; C1769; C1771; C1781; C9290; J0690; J1100; J1650; J1885; J2250; J2405; J2704; J2710; J3010; J3480; J7120

== ENCOUNTER 2023-03-14 08:07 | Inpatient (IN) | payer MEDICARE, SELFPAY ==
[2023-03-14] VITALS (19 sets, daily range): BP systolic 103–137; BP diastolic 52–85; PULSE 64–82; RESP 13–38; TEMP 36.4–37; O2SAT 90–100
--- NOTE | ~2023-03-14 | CT_ITS ---
EXAMINATION: CT abdomen pelvis w con INDICATION: Abdominal pain TECHNIQUE: Computed tomographic images of the abdomen and pelvis were obtained after the administrati on of 100 cc of Omnipaque 350 intravenous contrast. The dose-length product (DLP) was 374.94 mGy-cm. Automated exposure control and iterative reconstruction technique were employed. COMPARISON: 10/02/2021 FINDINGS: There is moderate atelectasis of the visualized lung bases. There is a 10 mm nodule of the left lower lobe, with previous biopsy demonstrating histoplasmosis. Again noted is a chronic rim calc ified cyst of the spleen, consistent with old infection or hematoma. The liver, pancreas, and adrenal glands are normal. There is free intraperitoneal gas in the upper abdomen. There is moderate inflamm atory change in the right upper quadrant. There is a moderate volume of ascites. There is mild wall t hickening of the gallbladder. There is wall thickening of the distal stomach/proximal duodenum with p ossible penetrating ulcer. The kidneys are unremarkable. There are no dilated loops of bowel. No path ologically enlarged abdominal or pelvic lymph nodes are identified. There is atrophy of the right alexander opsoas muscle. Changes of right total hip arthroplasty are noted. IMPRESSION: 1. Free intraperitoneal gas in the upper abdomen, moderate volume of ascites, and inflammatory change in the right upper quadrant with wall thickening of the distal stomach and proximal duodenum, likely reflecting perforated ulcer. Surgical evaluation is recommended. These findings and recommendations were discussed with lluvia Clinton nurse in the Emergency Department at 0930 hours on 03/14/2023. Reviewed, dictated and finalized at location A. IMPRESSION: 1. Free intraperitoneal gas in the upper abdomen, moderate volume of ascites, a nd inflammatory change in the right upper quadrant with wall thickening of the distal stomach and proximal duodenum, likely reflecting perforated ulcer. Surgi gabbie evaluation is recommended. These findings and recommendations were discusse d with lluvia Clinton nurse in the Emergency Department at 0930 hours on 03/14/2023 .
--- NOTE | ~2023-03-14 | XR_ITS ---
EXAMINATION: XR abdomen/kub 1V DATE: 03/18/2023 05:33 INDICATION: Adynamic ileus. TECHNIQUE: A supine view of the abdomen on 2 radiographs was obtained. COMPARISON: CT abdomen and pelvis 03/14/2023 FINDINGS: There are no dilated loops of bowel. There is contrast in the colon. The nasogastric tube t ip is in the stomach. A surgical drain overlies the abdomen. There is a right hip arthroplasty. There are airspace opacities in the lower lung zones, left worse than right. IMPRESSION: 1. Nonobstructive bowel gas pattern. 2. Airspace opacities in the lower lung zones, left worse than right, consistent with atelectasis laurence lico pneumonia. Reviewed, dictated and finalized at location A. IMPRESSION: 1. Nonobstructive bowel gas pattern. 2. Airspace opacities in the lower lung zones, left worse than right, consisten t with atelectasis versus pneumonia.
--- NOTE | ~2023-03-14 | XR_ITS ---
EXAMINATION: XR UGI water soluble wo kub DATE: 03/17/2023 14:44 INDICATION: Status post repair of a perforated gastric ulcer TECHNIQUE: Water-soluble contrast was administered due to the patient's existing nasogastric tube. A total of 13 fluoroscopic images of the stomach and proximal small bowel were obtained. Fluoroscopy ex posure time was 1.3 minutes. COMPARISON: None. FINDINGS: Tenant Relations Coordinator image demonstrates the tip of a nasogastric tube at the gastric antrum. There is also a surgical drain which makes a loop in the region of the gastric pylorus and with distal tip along t he anterior margin of the gastric body. Subsequent images demonstrate contrast filling the stomach. N o evident extraluminal contrast extravasation. Visualized portion of the proximal small bowel are unr emarkable. IMPRESSION: 1. No evident extraluminal leakage of contrast from the stomach or proximal small bowel. Reviewed, dictated and finalized at location A. IMPRESSION: 1. No evident extraluminal leakage of contrast from the stomach or proximal sma ll bowel.
--- NOTE | 2023-03-14 08:36 | ED.ABDPAIN ---
HPI - Abdominal Pain General Chief Complaint: Abdominal Pain Stated Complaint: i think my appendix bust Time Seen by Provider: 03/14/23 08:14 History of Present Illness HPI narrative: Patient is a 67-year-old female who presents ER with abdominal pain. Sudden onset earlier this morning around 4:30 AM. Sharp. Located in her lower abdomen the right side but also in her epigastrium. No radiation. Worse with movement. Associate with nausea vomiting. No diarrhea or constipation. No fevers chills or sweats. Denies urinary symptoms. Has not had similar symptoms previously. She is concerned this may represent a ruptured appendix. Related Data Home Medications Medication Instructions Recorded Confirmed solifenacin 5 mg tablet 1 tablet PO QAM 07/10/22 03/14/23 Immunostart 2 tab-cap PO QAM 07/29/22 03/14/23 Vitamin K2+D3 1 tab-cap QAM 07/29/22 03/14/23 [id number] oil-vit D3 2 cap BYMOUTH DAILY 03/14/23 03/14/23 Allergies Allergy/AdvReac Type Severity Reaction Status Date / Time No Known Allergies Allergy Verified 03/14/23 09:08 Review of Systems Review of Systems: All systems reviewed & are unremarkable except as noted in HPI and below Constitutional: Constitutional: Denies chills, Denies fatigue and Denies fever(s) ENT: Denies nasal congestion and Denies sore throat Respiratory: Respiratory: Reports no additional respiratory complaints Gastrointestinal: Gastrointestinal: Reports abdominal pain, Denies constipation, Denies heartburn, Denies diarrhea, Reports nausea and Reports vomiting Genitourinary: Genitourinary: Reports no additional female genitourinary complaints [facility] Past Medical History Medical History ADD (attention deficit disorder) Anxiety Histoplasmosis History of vaginal delivery Hyperlipidemia Overactive bladder Scoliosis Surgical History Surgical History History of ankle surgery History of surgery on wrist History of tubal ligation Family History Family History Father Hypertension Family history of hypercholesterolemia Family history of throat cancer Mother Family history of elevated blood lipids Family history of lung cancer Sibling Sjogren syndrome with other organ involvement Other Family history of heart disease in male family member before age 55 Family history of malignant neoplasm Social History Social History Smoking status: Never smoker Second hand tobacco smoke exposure: Yes (BROTHER) Alcohol intake: current Substance use: never Substance use type: does not use Lack of Transportation: No Lack of Food: Never True Current Housing: I Have Housing Concerned About Future Housing: No Difficulty Paying Gas/Electric Bills: No Difficulty Paying for Meds: No Currently Unemployed: No Education: High School Diploma/GED Difficulty w/ Childcare or Family Care: No Living arrangements: with family Spiritual care concerns: No Exam Narrative: GENERAL: Uncomfortable-appearing, well-nourished, and in no acute distress. HEAD: Normocephalic, atraumatic. EYES: PERRL and EOMI. ENT: Mucous membranes moist. CHEST: Clear to auscultation. No respiratory distress. HEART: Regular rate and rhythm. Normal peripheral pulses. ABDOMEN: Firm abdomen, tender in the epigastrium with guarding as well as right upper and right lower quadrants, nondistended, normal active bowel sounds. EXTREMITIES: Normal range of motion. No edema. SKIN: Warm, dry, no rash. NEURO: Alert and oriented x3. PSYCH: Normal mood and affect. Course Vital Signs Vital signs: Vital Signs Temperature 97.5 F L 03/14/23 08:24 Pulse Rate 70 03/14/23 08:24 Respiratory Rate 18 03/14/23 08:24 Blood Pressure 134/65 03/14/23 08:24 Pulse Oximetry 98
[2023-03-14] MEDS: ONDANSETRON INJ 4 MG/2 ML VIAL IV PUSH (08:39)
[2023-03-14] MEDS: MORPHINE SULFATE (*CRX) 4 MG/ML INJ IV PUSH ×3 (08:39→18:52)
[2023-03-14] MEDS: SODIUM CHLORIDE 0.9% IV 1,000 ML 999 ML IV CONT (08:40)
[2023-03-14 08:50] LABS: Basophils Percent Auto 0.4 % (0.2-1.2); Eosinophils Absolute Auto 0.1 K/mm3 (0-0.3); Eosinophils Percent Auto 2.1 % (0-4.4); Hematocrit 44.5 % (37.0-47.0); Hemoglobin 14.8 g/dL (12.0-15.0); Immature Granulocyte Absolute 0.01 K/mm3 (0.00-0.031); Immature Granulocyte Percent A 0.2 % (0-0.5); Lymphocytes Absolute Auto 1.76 K/mm3 (0.9-3.2); Lymphocytes Percent Auto 31.4 % (18.3-44.2); Mean Corpuscular HGB Conc 33.3 g/dl (32-36); Mean Corpuscular Hemoglobin 30.9 pg (26-34); Mean Corpuscular Volume 92.9 fl (80-100); Mean Platelet Volume 9.9 fl (7.4-10.4); Monocytes Absolute Auto 0.1 K/mm3 (0.1-0.6); Neutrophils Absolute Auto 3.6 K/mm3 (1.3-6.7); Neutrophils Percent Auto 63.9 % (45.5-73.1); Platelet Count Result 241 k/mm3 (150-375); Red Blood Count 4.79 M/mm3 (4.2-5.4); Red Cell Distribution Width 12.3 % (11.5-14.5); White Blood Count 5.6 K/mm3 (4.5-10.0)
--- NOTE | 2023-03-14 08:52 | PC.NURSE ---
Pt to CT
[2023-03-14 08:59] LABS: Estimated CRCL calculation 43 ml/min; Estimated Glomerular Filt Rate 55
[2023-03-14 09:02] LABS: Alanine Aminotransferase 23 U/L (6-35); Albumin Level 3.9 g/dL (3.5-5.1); Alkaline Phosphatase 72 U/L (38-126); Anion Gap 16 mmol/L (8-16); Aspartate Amino Transferase 34 U/L (14-36); Bilirubin,Total 1.1 mg/dL (0.2-1.3); Blood Urea Nitrogen 20 mg/dL (7-17); Calcium 8.6 mg/dL (8.4-10.2); Carbon Dioxide 27 mmol/L (22-30); Chloride 95 mmol/L (98-107); Estimated CRCL calculation 43 ml/min; Estimated Glomerular Filt Rate 55; Glucose 142 mg/dL (65-110); Lipase 410 U/L (23-300); Potassium 3.5 mmol/L (3.4-5.0); Sodium 138 mmol/L (137-145)
[2023-03-14 09:27] LABS: Appearance Urine Clear (Clear); Bilirubin Urine Negative (Negative); Blood Urine Negative (Negative); Color Urine Yellow (Yellow); Glucose Urine UA Negative (Negative); Ketones Urine Negative (Negative); Leukocyte Esterase Ur Negative LEU/UL (Negative); Nitrate Urine Negative (Negative); Protein Urine Negative (Negative); Specific Grav Ur 1.068 (1.001-1.035); Urobilinogen Urine 0.2 mg/dL (<2.0)
[2023-03-14 09:28] LABS: Add Urine Microscopic? NO
[2023-03-14] MEDS: PANTOPRAZOLE SODIUM IV 40 MG VIAL 80 MG IV PUSH (09:38)
[2023-03-14] MEDS: PIPERACILLN/TAZ 3.375GM/NS50ML 3.375 GM/50 ML BAG IVPB ×3 (09:39→21:34)
[2023-03-14] MEDS: PANTOPRAZOLE SODIUM IV 80 MG in SODIUM CHLORIDE 0.9% IV 500 ML 50 MG IV CONT (10:09)
[2023-03-14 10:20] LABS: INR 1.1; Prothrombin Time 14.5 Seconds (11.1-14.7)
[2023-03-14 10:21] LABS: Partial Thromboplastin Time 23.9 SECONDS (22.3-36.8)
--- NOTE | 2023-03-14 10:41 | PM.IMHP ---
H&P: HPI History of Present Illness Date/Time: 03/14/23 10:41 Chief Complaint: abdominal pain Narrative: Pt is a 67 y/o F presenting to ED c/o severe abd pain. Pt reports pain started aburptly at 430 this morning. Pt reports pain has been severe, diffuse, and worse c movt. Pt reports some nausea. Pt denies previous episodes. Pt does state she had an gastric ulcer years ago that was treated. Review of Systems Review of Systems: All systems reviewed & are unremarkable except as noted in HPI and below PMFSH Past Medical History Medical History ADD (attention deficit disorder) Anxiety Histoplasmosis History of vaginal delivery Hyperlipidemia Overactive bladder Scoliosis Surgical History Surgical History History of ankle surgery History of surgery on wrist History of tubal ligation Family History Family History Father Hypertension Family history of hypercholesterolemia Family history of throat cancer Mother Family history of elevated blood lipids Family history of lung cancer Sibling Sjogren syndrome with other organ involvement Other Family history of heart disease in male family member before age 55 Family history of malignant neoplasm Social History Social History Smoking status: Never smoker Second hand tobacco smoke exposure: Yes (BROTHER) Alcohol intake: current Substance use: never Substance use type: does not use Lack of Transportation: No Lack of Food: Never True Current Housing: I Have Housing Concerned About Future Housing: No Difficulty Paying Gas/Electric Bills: No Difficulty Paying for Meds: No Currently Unemployed: No Education: High School Diploma/GED Difficulty w/ Childcare or Family Care: No Living arrangements: with family Spiritual care concerns: No Meds Home Medications and Allergies Home Medications Medication Instructions Recorded Confirmed Type solifenacin 5 mg tablet 1 tablet PO QAM 07/10/22 12/03/22 History Immunostart 2 tab-cap PO QAM 07/29/22 12/03/22 History Vitamin K2+D3 1 tab-cap QAM 07/29/22 12/03/22 History multivitamin 1 tablet PO QAM 07/29/22 12/03/22 History citalopram 20 mg tablet 20 mg PO QAM #90 tabs 11/04/22 12/03/22 Rx dextroamphetamine-amphetamine ER 20 mg PO QAM #30 caps 12/03/22 12/03/22 Rx 20 mg 24hr capsule,extend release Allergies Allergy/AdvReac Type Severity Reaction Status Date / Time No Known Allergies Allergy Verified 03/14/23 09:08 Vital Signs Vital Signs - 24 hr 03/14/23 08:24 03/14/23 09:51 03/14/23 08:48 Temperature 36.4 C L 36.4 C Pulse Rate 70 70 Respiratory Rate 18 20 Blood Pressure 134/65 Pulse Oximetry 98 91 Oxygen Delivery Room Air 03/14/23 09:17 03/14/23 09:38 Temperature Pulse Rate 82 70 Respiratory Rate 38 H 25 H Blood Pressure 125/66 Pulse Oximetry 95 96 Oxygen Delivery Exam Const: General: cooperative, acute distress moderate, ill appearing, uncomfortable and underweight HENMT: Head: normal to inspection, normocephalic and atraumatic Eyes: General: appearance normal, both eyes and all related structures Neck: Neck: normal visual inspection, full ROM and no lymphadenopathy Resp: Auscultation: clear to auscultation bilaterally Cardio: Rate: regular rate Rhythm: regular rhythm GI: Inspection: normal to inspection and distended GI Palp: Yes abdominal tenderness, Yes Soft to palpation, Yes Firmness to palpation present (GI), Yes Tenderness to palpation present (GI), Yes Guarding due to palpation present (GI) and Yes Rigid due to palpation Skin: General skin exam: normal color and no rashes or lesions noted Neuro: General: patient oriented x3 and CN's II-XI intact bilaterally Extrem: General: normal to inspection and f
--- NOTE | 2023-03-14 10:46 | WPDHPUPDATE1 ---
History and Physical Update Update Date/Time: 03/14/23 10:46 History and Physical has been reviewed, including an updated exam of the patient. There are NO changes in the patient's condition. Risks, benefits, and alternatives have been discussed and questions answered. Patient agrees to proceed with procedure.
--- NOTE | 2023-03-14 10:50 | WPDANESEPPF ---
Anes - Initial Pre Proc Eval Procedure: Operation Date: 03/14/23 11:00 Proposed Procedures p Perforated Gastric Ulcer Repair - Ele Ansari MD Date/Time: 03/14/23 10:50 Surgeon: Ele Ansari MD Pre Op Diagnosis: i think my appendix bust Patient Data Age: 67 Gender: F Height: 1.68 m Weight: 56.7 kg Last Vital Signs Temp 36.4 C 03/14/23 09:51 Pulse 70 03/14/23 09:38 Resp 25 H 03/14/23 09:38 BP 125/66 03/14/23 09:38 Pulse Ox 96 03/14/23 09:38 O2 Del Method Room Air 03/14/23 08:24 Allergies Allergy/AdvReac Type Severity Reaction Status Date / Time No Known Allergies Allergy Verified 03/14/23 09:08 Home Medications Medication Instructions Recorded Confirmed Type solifenacin 5 mg tablet 1 tablet PO QAM 07/10/22 12/03/22 History Immunostart 2 tab-cap PO QAM 07/29/22 12/03/22 History Vitamin K2+D3 1 tab-cap QAM 07/29/22 12/03/22 History multivitamin 1 tablet PO QAM 07/29/22 12/03/22 History citalopram 20 mg tablet 20 mg PO QAM #90 tabs 11/04/22 12/03/22 Rx dextroamphetamine-amphetamine ER 20 mg PO QAM #30 caps 12/03/22 12/03/22 Rx 20 mg 24hr capsule,extend release Laboratory Tests 03/14/23 03/14/23 03/14/23 08:42 08:57 09:21 WBC 5.6 K/mm3 (4.5-10.0) RBC 4.79 M/mm3 (4.2-5.4) Hgb 14.8 g/dL (12.0-15.0) Hct 44.5 % (37.0-47.0) MCV 92.9 fl (80-100) MCH 30.9 pg (26-34) MCHC 33.3 g/dl (32-36) RDW 12.3 % (11.5-14.5) Plt Count 241 k/mm3 (150-375) MPV 9.9 fl (7.4-10.4) Immature Gran % (Auto) 0.2 % (0-0.5) Neut % (Auto) 63.9 % (45.5-73.1) Lymph % (Auto) 31.4 % (18.3-44.2) Delta % (Auto) 2.0 L % (2.6-8.5) Eos % (Auto) 2.1 % (0-4.4) Baso % (Auto) 0.4 % (0.2-1.2) Lymph # (Auto) 1.76 K/mm3 (0.9-3.2) Delta # (Auto) 0.1 K/mm3 (0.1-0.6) Eos # (Auto) 0.1 K/mm3 (0-0.3) Baso # (Auto) 0.0 K/mm3 (0.0-0.1) Abs Immat Gran (auto) 0.01 K/mm3 (0.00-0.031) Absolute Neuts (auto) 3.6 K/mm3 (1.3-6.7) Absolute Nucleated RBC 0.0 K/mm3 (0.0-0.012) Nucleated RBC % 0.0 % (0.0-0.2) PT INR APTT Sodium 138 mmol/L (137-145) Potassium 3.5 mmol/L (3.4-5.0) Chloride 95 L mmol/L (98-107) Carbon Dioxide 27 mmol/L (22-30) Anion Gap 16 mmol/L (8-16) BUN 20 H mg/dL (7-17) Creatinine 1.00 mg/dL 1.00 mg/dL (0.7-1.0) (0.7-1.2) Estim Creat Clear Calc 43 ml/min 43 ml/min Estimated GFR 55 L 55 L (59 - ) (59 - ) Glucose 142 H mg/dL (65-110) Calcium 8.6 mg/dL (8.4-10.2) Total Bilirubin 1.1 mg/dL (0.2-1.3) AST 34 U/L (14-36) ALT 23 U/L (6-35) Alkaline Phosphatase 72 U/L (38-126) Total Protein 7.0 g/dL (6.3-8.2) Albumin 3.9 g/dL (3.5-5.1) Lipase 410 H U/L (23-300) Urine Color Yellow (Yellow) Urine Appearance Clear (Clear) Urine pH 6.0 (5.0-9.0) Ur Specific Diana 1.068 H (1.001-1.035) Urine Protein Negative mg/dL (Negative) Urine Glucose (UA) Negative mg/dL (Negative) Urine Ketones Negative mg/dL (Negative) Ur Blood (Man) Negative (Negative) Urine Nitrate Negative (Negative) Urine Bilirubin Negative (Negative) Urine Urobilinogen 0.2 mg/dL (<2.0) Leukocyte Esterase Rfl Negative MARKUS/UL (Negative) 03/14/23 09:45 WBC RBC Hgb Hct MCV MCH MCHC RDW Plt Count MPV Immature Gran % (Auto) Neut % (Auto) Lymph % (Auto) Delta % (Auto) Eos % (Auto) Baso
[2023-03-14] MEDS: LACTATED RINGERS 1,000 ML 30 ML IV CONT ×2 (10:57→12:04)
--- NOTE | 2023-03-14 11:51 | P.OP_ITS ---
Procedure Note - Detailed Date of Procedure 03/14/23 Pre-op Diagnosis Perforated gastric ulcer Post-op Diagnosis Same Procedure Performed Exploratory laparotomy, repair of perforated gastric ulcer with Toan patch Surgeon Ele Ansari MD Anesthesia General Indications 67-year-old female presenting to the emergency department complaining of severe abdominal pain. Workup, including imaging, significant for perforated viscus, likely perforated gastric ulcer. Findings Perforated gastric ulcer in the lesser curvature near the antrum of the stomach Description of Procedure The patient was taken to the operating room placed in the supine position. After adequate induction of general anesthesia, the patient was prepped and draped in the normal sterile fashion. A time-out was then done to verify the patient's identity, as well as the procedure being performed. I began by making an upper midline incision. This was carried down into the peritoneal cavity. Upon getting into the peritoneal cavity, a large gush of air and a moderate amount of gastric fluid was evacuated. I was then able to identify the stomach. I carefully dissected the stomach to allow visualization in the operative field. Upon examining the stomach, and the antrum near the lesser curvature there was noted to be a perforation. The perforation was noted to be full- thickness and measured approximately 1 x 1 cm. The edges were all viable and there was no evidence of malignant changes. Given these findings, I primarily closed this perforation in 2 layers. Once closed, I stented the repair with the NG tube. No leaking was noted at the repair site. I then copiously irrigated the abdominal cavity and no other pathology was seen in the right upper quadrant. I then placed an omental patch over a primary repair using int errupted 3-0 silk sutures. I then left a 19 [place] MAYO drain in the right upper quadrant around the area of our repair. Then closed the upper midline incision with a 1. PDS suture at the fascial level. The subcutaneous tissue was closed with 3-0 Vicryl suture. The skin was closed with 4-0 Monocryl subcuticular suture. The patient tolerated the procedure well and was extubated postoperatively. She will be transferred to the recovery room in stable condition. Estimated Blood Loss 50 Urine Output 50 Drains Yes Packing No Pathology None sent Complications No immediate complications Condition Stable Disposition PACU [facility] Billing Surgery - Charge Forward: Surgery Billing
[2023-03-14] MEDS: fentaNYL CITRATE INJ (*CRX) 100 MCG/2 ML VIAL 25 MCG IV PUSH ×4 (12:34→12:44)
--- NOTE | 2023-03-14 13:15 | ADMGEN ---
This patient, Judith Quinn, was admitted to Medical Room 257-01. Patient/family oriented to hospital policies and general routines including ID bracelet, bed and alarms, visiting hours, pain management, procedures, bathroom and other care routines, personal items, smoking policy, room service/diet, and visiting hours. Information on how to activate the Rapid Response Team has been discussed. Patient/Family are encouraged to report perceived risks to care and to ask questions if they do not understand what they are told or what they should do.
--- NOTE | 2023-03-14 13:23 | ADMGEN ---
This patient, Judith Quinn, was admitted to Medical Room 257-01 at 1315. Patient/family oriented to hospital policies and general routines including ID bracelet, bed and alarms, visiting hours, pain management, procedures, bathroom and other care routines, personal items, smoking policy, room service/diet, and visiting hours. Information on how to activate the Rapid Response Team has been discussed. Patient/Family are encouraged to report perceived risks to care and to ask questions if they do not understand what they are told or what they should do.
[2023-03-14] MEDS: LACTATED RINGERS 1,000 ML 100 ML IV CONT (14:39)
[2023-03-14] MEDS: PANTOPRAZOLE SODIUM IV 40 MG VIAL IV PUSH (21:35)
[2023-03-15] MEDS: MORPHINE SULFATE (*CRX) 4 MG/ML INJ IV PUSH ×5 (01:53→20:29)
[2023-03-15] MEDS: LACTATED RINGERS 1,000 ML 100 ML IV CONT ×2 (01:53→12:26)
[2023-03-15] MEDS: PIPERACILLN/TAZ 3.375GM/NS50ML 3.375 GM/50 ML BAG IVPB ×4 (02:29→20:32)
[2023-03-15 04:30] VITALS: BP 118/93; PULSE 73; RESP 16; TEMP 36.6; O2SAT 91
[2023-03-15 06:59] LABS: Hematocrit 37.6 % (37.0-47.0); Hemoglobin 12.4 g/dL (12.0-15.0); Mean Corpuscular Hemoglobin 31.2 pg (26-34); Mean Corpuscular Volume 94.7 fl (80-100); Mean Platelet Volume 10.4 fl (7.4-10.4); Platelet Count Result 167 k/mm3 (150-375); Red Blood Count 3.97 M/mm3 (4.2-5.4); Red Cell Distribution Width 12.8 % (11.5-14.5); White Blood Count 10.3 K/mm3 (4.5-10.0)
[2023-03-15 07:11] LABS: Anion Gap 5 mmol/L (8-16); Blood Urea Nitrogen 16 mg/dL (7-17); Calcium 7.8 mg/dL (8.4-10.2); Carbon Dioxide 27 mmol/L (22-30); Chloride 106 mmol/L (98-107); Estimated CRCL calculation 52 ml/min; Estimated Glomerular Filt Rate > 60; Glucose 107 mg/dL (65-110); Potassium 4.1 mmol/L (3.4-5.0); Sodium 138 mmol/L (137-145)
[2023-03-15] MEDS: ENOXAPARIN 40 MG/0.4 ML SYRINGE SUB-Q (08:08)
[2023-03-15] MEDS: PANTOPRAZOLE SODIUM IV 40 MG VIAL IV PUSH ×2 (08:09→20:32)
[2023-03-15 08:10] VITALS: O2SAT 96
--- NOTE | 2023-03-15 10:07 | PM.PNGS ---
Progress Note: A&P Assessment and Plan (1) Perforated gastric ulcer: Code(s): K25.5 - Chronic or unspecified gastric ulcer with perforation Status: Acute Assessment and Plan: doing well, cont NG decompression, bowel rest, PPI, will likely get UGI on 03/17, ok to dc Terri meeksOB/IS Subjective Subjective Date/Time Seen: 03/15/23 10:07 Interval history: doing well, c/o some incisional pain Review of Systems Review of Systems: All systems reviewed & are unremarkable except as noted in HPI and below Exam Const: General: cooperative, comfortable and no acute distress Resp: Auscultation: clear to auscultation bilaterally Cardio: Rate: regular rate Rhythm: regular rhythm GI: Inspection: normal to inspection, distended and incision GI Palp: Yes abdominal tenderness, Yes Soft to palpation and Yes Tenderness to palpation present (GI) Objective Data Vital Signs Vital Signs: Vital Signs - 24 hr 03/14/23 10:37 03/14/23 12:04 03/14/23 12:15 Temperature 36.4 C 36.4 C L Pulse Rate 64 66 65 Respiratory Rate 24 H 16 16 Blood Pressure 117/61 124/62 128/74 Pulse Oximetry 95 100 100 Oxygen Delivery Simple Face Mask Simple Face Mask Oxygen Flow Rate 8 8 03/14/23 12:30 03/14/23 12:45 03/14/23 13:02 Temperature Pulse Rate 67 70 71 Respiratory Rate 15 16 13 Blood Pressure 137/73 129/69 129/68 Pulse Oximetry 100 95 96 Oxygen Delivery Simple Face Mask Nasal Cannula Nasal Cannula Oxygen Flow Rate 8 2 2 03/14/23 13:13 03/14/23 13:28 03/14/23 13:57 Temperature 36.9 C 36.9 C 37.0 C Pulse Rate 73 67 67 Respiratory Rate 16 16 18 Blood Pressure 103/85 109/57 L 111/52 L Pulse Oximetry 96 95 94 Oxygen Delivery Oxygen Flow Rate 03/14/23 14:58 03/14/23 19:43 03/14/23 20:00 Temperature 36.8 C 36.8 C Pulse Rate 70 78 Respiratory Rate 18 17 Blood Pressure 115/57 L 129/63 Pulse Oximetry 95 91 91 Oxygen Delivery Nasal Cannula Oxygen Flow Rate 2 03/14/23 23:56 03/14/23 23:44 03/15/23 04:30 Temperature 36.5 C 36.6 C Pulse Rate 69 73 Respiratory Rate 18 16 Blood Pressure 118/57 L 118/93 H Pulse Oximetry 90 90 91 Oxygen Delivery Nasal Cannula Oxygen Flow Rate 3 03/15/23 08:10 Temperature Pulse Rate Respiratory Rate Blood Pressure Pulse Oximetry 96 Oxygen Delivery Nasal Cannula Oxygen Flow Rate 3 Intake/Output Intake/Output: Intake & Output 03/12/23 03/13/23 03/14/23 03/15/23 23:59 23:59 23:59 23:59 Intake Total 1350 1100 Output Total 590 410 Balance 760 690 Meds/Results Medications: Active Medications Generic Name Dose Route Start Last Admin Trade Name Freq PRN Reason Stop Dose Admin Diphenhydramine HCl 25 mg 03/14/23 13:13 Diphenhydramine Hcl Inj 50 Mg/Ml Vial IV PUSH Q6H PRN Itching Enoxaparin Sodium 40 mg 03/15/23 09:00 03/15/23 08:08 Enoxaparin 40 Mg/0.4 Ml Syringe SUB-Q 40 mg DAILY ABIMAEL Administration Piperacillin/Tazobactam/Dextrose 3.375 gm in 50 mls @ 100 mls/hr 03/14/23 15:00 03/15/23 08:40 Zosyn 3.375 Gm/Ns 50 Ml IVPB Infused Q6H ABIMAEL Infusion Lactated Ringer's 1,000 mls @ 100 mls/hr 03/14/23 13:13 03/15/23 02:59 Lr - Lactated Ringers Iv IV CONT 100 mls/hr .Q10H ABIMAEL Infusion Morphine Sulfate 2 mg 03/14/23 13:13 Morphine Sulfate (*Crx) 2 Mg/Ml Inj IV PUSH Q2H PRN Pain Rated 4-6 Morphine Sulfate 4 mg 03/14/23 13:13 03/15/23 08:09 Morphine Sulfate (*Crx) 4 Mg/Ml Inj IV PUSH 4 mg Q2H PRN Administration Pain Rated 7-10 Naloxone HCl 0.1 mg 03/14/23 13:13 Naloxone Hcl 0.4 Mg/Ml Vial IV PUSH Q2M PRN Opiate Reversal Ondansetron HCl 4 mg 03/14/23 13:13 Ondansetron Inj 4 Mg/2 Ml Vial IV PUSH Q4H PRN Nausea And Vomiting Pantoprazole Sodium 40 mg 03/14/23 21:03/15/23 08:09 Pantoprazole Sodium Iv 40 Mg Vial IV PUSH 40 mg Q12HR ABIMAEL Administration Radiology Results: ITS Impressions Abdomen/Pelv
[2023-03-15 10:58] VITALS: BP 107/55; PULSE 73; RESP 20; TEMP 37.2; O2SAT 93
--- NOTE | 2023-03-15 12:15 | WPDANESPN ---
Anes - Prog Note Post-Op Date/Time: 03/15/23 12:15 Cardiovascular status: normal Respiratory status: normal Airway patency: baseline Mental status: baseline Post-Op hydration status: normal Vital Signs: Last Vital Signs Temp 36.6 C 03/15/23 04:30 Pulse 73 03/15/23 04:30 Resp 16 03/15/23 04:30 BP 118/93 H 03/15/23 04:30 Pulse Ox 96 03/15/23 08:10 O2 Del Method Nasal Cannula 03/15/23 08:10 O2 Flow Rate 3 03/15/23 08:10 Pain Score (VAS): 09/19 I/O: Intake & Output 03/14/23 03/15/23 03/15/23 23:59 07:59 15:59 Intake Total 50 1050 50 Output Total 380 410 Balance -330 640 50 Laboratory Tests 03/15/23 06:36 03/15/23 06:35 03/15/23 03/15/23 06:35 06:36 WBC 10.3 H RBC 3.97 L Hgb 12.4 Hct 37.6 MCV 94.7 MCH 31.2 MCHC 33.0 RDW 12.8 Plt Count 167 MPV 10.4 Sodium 138 Potassium 4.1 Chloride 106 Carbon Dioxide 27 Anion Gap 5 L BUN 16 Creatinine 0.80 Estim Creat Clear Calc 52 Estimated GFR > 60 Glucose 107 Calcium 7.8 L Post-procedural complaints: none Patient Feedback: Patient satisfied with anesthetic care.
[2023-03-15 14:58] VITALS: BP 107/52; PULSE 74; RESP 16; TEMP 37.1; O2SAT 91
[2023-03-15 20:00] VITALS: O2SAT 91
[2023-03-15 20:38] VITALS: BP 116/59; PULSE 73; RESP 18; TEMP 36.6; O2SAT 91
[2023-03-15 20:39] VITALS: BMI 25.8
[2023-03-16] MEDS: LACTATED RINGERS 1,000 ML 100 ML IV CONT ×3 (00:45→23:45)
[2023-03-16] MEDS: PIPERACILLN/TAZ 3.375GM/NS50ML 3.375 GM/50 ML BAG IVPB ×4 (03:04→20:30)
[2023-03-16 04:08] VITALS: BP 120/61; PULSE 67; RESP 20; TEMP 36.5; O2SAT 93
[2023-03-16 05:49] LABS: Hematocrit 34.2 % (37.0-47.0); Hemoglobin 11.2 g/dL (12.0-15.0); Mean Corpuscular HGB Conc 32.7 g/dl (32-36); Mean Corpuscular Hemoglobin 30.7 pg (26-34); Mean Corpuscular Volume 93.7 fl (80-100); Mean Platelet Volume 10.2 fl (7.4-10.4); Platelet Count Result 141 k/mm3 (150-375); Red Blood Count 3.65 M/mm3 (4.2-5.4); Red Cell Distribution Width 12.5 % (11.5-14.5); White Blood Count 9.9 K/mm3 (4.5-10.0)
[2023-03-16 06:02] LABS: Anion Gap 4 mmol/L (8-16); Blood Urea Nitrogen 18 mg/dL (7-17); Calcium 8.2 mg/dL (8.4-10.2); Carbon Dioxide 28 mmol/L (22-30); Chloride 105 mmol/L (98-107); Estimated CRCL calculation 48 ml/min; Estimated Glomerular Filt Rate > 60; Glucose 104 mg/dL (65-110); Potassium 3.6 mmol/L (3.4-5.0); Sodium 137 mmol/L (137-145)
[2023-03-16] MEDS: MORPHINE SULFATE (*CRX) 2 MG/ML INJ IV PUSH ×3 (06:24→19:31)
[2023-03-16 08:00] VITALS: O2SAT 93
[2023-03-16] MEDS: PANTOPRAZOLE SODIUM IV 40 MG VIAL IV PUSH ×2 (08:54→20:28)
[2023-03-16] MEDS: ENOXAPARIN 40 MG/0.4 ML SYRINGE SUB-Q (08:54)
--- NOTE | 2023-03-16 09:01 | PM.PNGS ---
Progress Note: A&P Assessment and Plan (1) Perforated gastric ulcer: Code(s): K25.5 - Chronic or unspecified gastric ulcer with perforation Status: Acute Assessment and Plan: stable, cont routine postop care, NG decompression, bowel rest, plan for UGI tomorrow Subjective Subjective Date/Time Seen: 03/16/23 09:01 Interval history: resting comfortably, no acute issues Review of Systems Review of Systems: All systems reviewed & are unremarkable except as noted in HPI and below Exam Const: General: cooperative, comfortable and no acute distress Resp: Auscultation: clear to auscultation bilaterally Cardio: Rate: regular rate Rhythm: regular rhythm GI: Inspection: normal to inspection, distended and incision GI Palp: Yes abdominal tenderness and Yes Soft to palpation Objective Data Vital Signs Vital Signs: Vital Signs - 24 hr 03/15/23 10:58 03/15/23 14:58 03/15/23 20:38 Temperature 37.2 C 37.1 C 36.6 C Pulse Rate 73 74 73 Respiratory Rate 20 16 18 Blood Pressure 107/55 L 107/52 L 116/59 L Pulse Oximetry 93 91 91 Oxygen Delivery Oxygen Flow Rate 03/15/23 20:00 03/16/23 04:08 Temperature 36.5 C Pulse Rate 67 Respiratory Rate 20 Blood Pressure 120/61 Pulse Oximetry 91 93 Oxygen Delivery Nasal Cannula Oxygen Flow Rate 3 Intake/Output Intake/Output: Intake & Output 03/13/23 03/14/23 03/15/23 03/16/23 23:59 23:59 23:59 23:59 Intake Total 1350 2200 1050 Output Total 590 720 100 Balance 760 1480 950 Meds/Results Medications: Active Medications Generic Name Dose Route Start Last Admin Trade Name Freq PRN Reason Stop Dose Admin Diphenhydramine HCl 25 mg 03/14/23 13:13 Diphenhydramine Hcl Inj 50 Mg/Ml Vial IV PUSH Q6H PRN Itching Enoxaparin Sodium 40 mg 03/15/23 09:00 03/16/23 08:54 Enoxaparin 40 Mg/0.4 Ml Syringe SUB-Q 40 mg DAILY ABIMAEL Administration Piperacillin/Tazobactam/Dextrose 3.375 gm in 50 mls @ 100 mls/hr 03/14/23 15:00 03/16/23 08:53 Zosyn 3.375 Gm/Ns 50 Ml IVPB 100 mls/hr Q6H ABIMAEL Administration Lactated Ringer's 1,000 mls @ 100 mls/hr 03/14/23 13:13 03/16/23 03:34 Lr - Lactated Ringers Iv IV CONT 100 mls/hr .Q10H ABIMAEL Infusion Morphine Sulfate 2 mg 03/14/23 13:13 03/16/23 06:24 Morphine Sulfate (*Crx) 2 Mg/Ml Inj IV PUSH 2 mg Q2H PRN Administration Pain Rated 4-6 Morphine Sulfate 4 mg 03/14/23 13:13 03/15/23 20:29 Morphine Sulfate (*Crx) 4 Mg/Ml Inj IV PUSH 4 mg Q2H PRN Administration Pain Rated 7-10 Naloxone HCl 0.1 mg 03/14/23 13:13 Naloxone Hcl 0.4 Mg/Ml Vial IV PUSH Q2M PRN Opiate Reversal Ondansetron HCl 4 mg 03/14/23 13:13 Ondansetron Inj 4 Mg/2 Ml Vial IV PUSH Q4H PRN Nausea And Vomiting Pantoprazole Sodium 40 mg 03/14/23 21:00 03/16/23 08:54 Pantoprazole Sodium Iv 40 Mg Vial IV PUSH 40 mg Q12HR ABIMAEL Administration Radiology Results: ITS Impressions Abdomen/Pelvis CT 03/14/23 09:12 IMPRESSION: 1. Free intraperitoneal gas in the upper abdomen, moderate volume of ascites, and inflammatory change in the right upper quadrant with wall thickening of the distal stomach and proximal duodenum, likely reflecting perforated ulcer. Surgical evaluation is recommended. These findings and recommendations were discussed with Oz charge nurse in the Emergency Department at 0930 hours on 03/14/2023. Labs Labs: Laboratory Results - last 24 hr 03/16/23 05:32 WBC 9.9 RBC 3.65 L Hgb 11.2 L Hct 34.2 L MCV 93.7 MCH 30.7 MCHC 32.7 RDW 12.5 Plt Count 141 L MPV 10.2 Sodium 137 Potassium 3.6 Chloride 105 Carbon Dioxide 28 Anion Gap 4 L BUN 18 H Creatinine 0.80 Estim Creat Clear Calc 48 Estimated GFR > 60 Glucose 104 Calcium 8.2 L
[2023-03-16 15:05] VITALS: BP 132/73; PULSE 66; RESP 16; TEMP 36.6; O2SAT 95
[2023-03-16 20:00] VITALS: O2SAT 94
[2023-03-16 20:25] VITALS: BP 137/83; PULSE 70; RESP 18; TEMP 36.5; O2SAT 94
[2023-03-17] MEDS: PIPERACILLN/TAZ 3.375GM/NS50ML 3.375 GM/50 ML BAG IVPB ×4 (04:01→20:16)
[2023-03-17 04:13] VITALS: BP 136/67; PULSE 56; RESP 18; TEMP 36.4; O2SAT 95
[2023-03-17 08:23] VITALS: O2SAT 93
[2023-03-17] MEDS: ENOXAPARIN 40 MG/0.4 ML SYRINGE SUB-Q (09:11)
[2023-03-17] MEDS: PANTOPRAZOLE SODIUM IV 40 MG VIAL IV PUSH ×2 (09:12→20:16)
[2023-03-17] MEDS: MORPHINE SULFATE (*CRX) 2 MG/ML INJ IV PUSH (10:21)
[2023-03-17] MEDS: LACTATED RINGERS 1,000 ML 100 ML IV CONT (11:00)
[2023-03-17 11:37] VITALS: O2SAT 93
[2023-03-17 12:00] VITALS: O2SAT 93
--- NOTE | 2023-03-17 14:07 | PM.PNGS ---
Progress Note: A&P Assessment and Plan (1) Perforated gastric ulcer: Code(s): K25.5 - Chronic or unspecified gastric ulcer with perforation Status: Acute Assessment and Plan: Continues to improve, continue IV Zosyn, Protonix IV, NG decompression and bowel rest. Will get an upper GI today. Plan I have discussed the patient's case and plan of care with Dr. Ansari. Subjective Subjective Date/Time Seen: 03/17/23 14:07 Post Op day: 3 (Exploratory laparotomy, repair of perforated gastric ulcer with Toan patch) Patient reports: voiding w/o difficulty, no flatus, no bowel movement and afebrile Interval history: This is a 67 yo woman who presented with a perforated gastric ulcer and underwent exploratory laparotomy, repair perforated gastric ulcer on 03/14/[address] Ansari. Chart reviewed. She is on IV Zosyn and IV Protonix Q12H. She is still NPO with an NG tube. She has a MAYO drain in place and is complaining of serous drainage coming around the drain this morning requiring a dressing change. Chart reviewed. She denies flatus or BM. This morning she also began having LLQ abdominal pain that is new from the last few days. She is on 3 liters O2. No other complaints at this time. NG tube had 430 cc output from last night, which is increased from the past few days. No nausea or bloating. Review of Systems Review of Systems: All systems reviewed & are unremarkable except as noted in HPI and below Constitutional: Constitutional: Reports as per HPI, Reports no additional constitutional complaints, Denies chills, Denies fever(s) and Denies headache(s) Cardiovascular: Cardiovascular: Reports no additional cardiovascular complaints, Denies chest pain and Denies leg edema Respiratory: Respiratory: Reports no additional respiratory complaints, Denies cough and Denies dyspnea Gastrointestinal: Gastrointestinal: Reports as per HPI and Reports no additional gastrointestinal complaints Neurologic: Reports system reviewed and no additional complaints, except as documented, Denies Abnormal speech present, Denies headache(s) and Denies focal weakness Exam Const: General: comfortable, no acute distress and awake Nutritional Appearance: thin Orientation/consciousness: patient oriented x3 GI: Inspection: non-distended and incision (incision dry and glue intact, no erythema) GI Palp: Yes Soft to palpation, Yes Tenderness to palpation present (GI) (incisional and LLQ), No Guarding due to palpation present (GI) and No Rebound tenderness present Auscultation: normal bowel sounds Other: MAYO drain with scant serosanguineous drainage with serous drainage on gauze, no erythema of skin Neuro: General: moves all extremities and no focal motor deficits Extrem: General: no calf tenderness and no edema Psych: Mental Status: mental status grossly normal Insight: Good insight present (Psych) Objective Data Vital Signs Vital Signs: Vital Signs - 24 hr 03/16/23 15:05 03/16/23 20:25 03/16/23 20:00 Temperature 97.9 F 97.7 F Pulse Rate 66 70 Respiratory Rate 16 18 Blood Pressure 132/73 137/83 Pulse Oximetry 95 94 94 Oxygen Delivery Nasal Cannula Oxygen Flow Rate 3 Fraction of Inspired Oxygen 03/17/23 04:13 03/17/23 08:23 03/17/23 12:00 Temperature 97.5 F L Pulse Rate 56 L Respiratory Rate 18 Blood Pressure 136/67 Pulse Oximetry 95 93 93 Oxygen Delivery Nasal Cannula Nasal Cannula Oxygen Flow Rate 3 3 Fraction of Inspired Oxygen 32 Intake/Output Intake/Output: Intake & Output 03/14/23 03/15/23 03/16/23 03/17/23 23:59 23:59 23:59 23:59 Intake Total 1350 2200 3200 50 Output Total 590 720 555 490 Balance 760 1480 9785 -440 Meds/Results Medications: Active Medications Generic Name Dose Route Start Last Admin Trade Name Freq PRN Reason Stop Dose Admin Diphenhydramine HCl 25 mg 03/14/23 13:13 Diphenhydramine Hcl Inj 50 Mg/Ml Vial IV PUSH Q6H PRN Itching Enoxaparin Sodiu
--- NOTE | 2023-03-17 15:19 | PC.NURSE ---
On 03/17/23, the student, [George Malone], provided care and completed [facility] documentation on this patient. I have reviewed the student's documentation and agree with the findings.
[2023-03-17 15:26] VITALS: BP 147/75; PULSE 57; RESP 18; TEMP 37.1; O2SAT 100
[2023-03-17 20:12] VITALS: BP 148/73; PULSE 60; RESP 18; TEMP 36.3; O2SAT 100
[2023-03-18] VITALS (7 sets, daily range): BP systolic 129–133; BP diastolic 64–97; PULSE 55–67; RESP 14–18; TEMP 36.1–36.8; O2SAT 96–98
[2023-03-18] MEDS: LACTATED RINGERS 1,000 ML 100 ML IV CONT ×2 (00:35→20:23)
[2023-03-18] MEDS: PIPERACILLN/TAZ 3.375GM/NS50ML 3.375 GM/50 ML BAG IVPB ×2 (02:20→09:00)
[2023-03-18 05:40] LABS: Hematocrit 36.3 % (37.0-47.0); Hemoglobin 11.9 g/dL (12.0-15.0); Mean Corpuscular HGB Conc 32.8 g/dl (32-36); Mean Corpuscular Hemoglobin 30.5 pg (26-34); Mean Corpuscular Volume 93.1 fl (80-100); Mean Platelet Volume 10.5 fl (7.4-10.4); Platelet Count Result 211 k/mm3 (150-375); Red Cell Distribution Width 12.4 % (11.5-14.5); White Blood Count 7.9 K/mm3 (4.5-10.0)
[2023-03-18 05:58] LABS: Anion Gap 6 mmol/L (8-16); Blood Urea Nitrogen 20 mg/dL (7-17); Calcium 8.1 mg/dL (8.4-10.2); Carbon Dioxide 29 mmol/L (22-30); Chloride 106 mmol/L (98-107); Estimated CRCL calculation 55 ml/min; Estimated Glomerular Filt Rate > 60; Glucose 89 mg/dL (65-110); Potassium 3.3 mmol/L (3.4-5.0); Sodium 141 mmol/L (137-145)
[2023-03-18] MEDS: ENOXAPARIN 40 MG/0.4 ML SYRINGE SUB-Q (09:01)
[2023-03-18] MEDS: POTASSIUM CHLORIDE INJ 40 MEQ in SODIUM CHLORIDE 0.9% IV 500 ML 130 MEQ IVPB (09:01)
[2023-03-18] MEDS: PANTOPRAZOLE SODIUM IV 40 MG VIAL IV PUSH ×2 (09:01→20:22)
--- NOTE | 2023-03-18 10:21 | PM.PNGS ---
Progress Note: A&P Assessment and Plan (1) Perforated gastric ulcer: Code(s): K25.5 - Chronic or unspecified gastric ulcer with perforation Status: Acute Assessment and Plan: UGI showed no contrast extravasation. Still with high NG output and no bowel function this morning, will leave NG in place for now until bowel function starts returning or NG output decreases. Continue Protonix IV. Dr. nAsari rec stopping IV Zosyn today. Replace potassium and recheck labs tomorrow. Add magnesium to labs this morning.\ Increase activity and start ambulating in the halls, PT/OT ordered. Encouraged IS use. Try weaning off oxygen. Plan I have discussed the patient's case and plan of care with Dr. Ansari. Subjective Subjective Date/Time Seen: 03/18/23 10:21 Post Op day: 4 (Exploratory laparotomy, repair of perforated gastric ulcer with Toan patch) Patient reports: voiding w/o difficulty, no flatus, no bowel movement and afebrile Interval history: Patient feeling about the same as yesterday. She is still having LLQ abdominal pain and bloating. She denies nausea. Her NG had almost 1 liter of output overnight. She is not passing gas or had a BM since her UGI yesterday. She has gotten up to the chair but has not been ambulating. Denies shortness of breath, cough, or chest pain. Review of Systems Review of Systems: ROS unchanged Exam Const: General: comfortable, no acute distress and awake Orientation/consciousness: patient oriented x3 Resp: Effort & Inspection: normal respiratory effort Auscultation: wheezes (CTA except) expiratory wheezes and left upper Cardio: Rate: regular rate Rhythm: regular rhythm GI: Inspection: non-distended and incision (incision dry and glue intact, no erythema) GI Palp: Yes Soft to palpation, Yes Guarding due to palpation present (GI) (voluntary guarding in LLQ and LUQ) and No Rebound tenderness present Auscultation: High-pitched bowel sounds present and Hypoactive bowel sounds present Other: MAYO drain with scant serosanguineous drainage with serous drainage on gauze, no erythema of skin Neuro: General: moves all extremities and no focal motor deficits Extrem: General: no calf tenderness and no edema Psych: Mental Status: mental status grossly normal Insight: Good insight present (Psych) Objective Data Vital Signs Vital Signs: Vital Signs - 24 hr 03/17/23 12:00 03/17/23 11:37 03/17/23 15:26 Temperature 98.7 F Pulse Rate 57 L Respiratory Rate 18 Blood Pressure 147/75 H Pulse Oximetry 93 93 100 Oxygen Delivery Nasal Cannula Nasal Cannula Oxygen Flow Rate 3 3 03/17/23 20:12 03/18/23 04:11 03/18/23 08:25 Temperature 97.4 F L 97 F L Pulse Rate 60 60 Respiratory Rate 18 18 Blood Pressure 148/73 H 133/76 Pulse Oximetry 100 97 98 Oxygen Delivery Nasal Cannula Oxygen Flow Rate 3 03/18/23 08:38 Temperature Pulse Rate Respiratory Rate Blood Pressure Pulse Oximetry 96 Oxygen Delivery Nasal Cannula Oxygen Flow Rate 2 Intake/Output Intake/Output: Intake & Output 03/15/23 03/16/23 03/17/23 03/18/23 23:59 23:59 23:59 23:59 Intake Total 2200 3200 2200 50 Output Total 270 481 7462 960 Balance 1480 2645 865 -910 Meds/Results Medications: Active Medications Generic Name Dose Route Start Last Admin Trade Name Freq PRN Reason Stop Dose Admin Diphenhydramine HCl 25 mg 03/14/23 13:13 Diphenhydramine Hcl Inj 50 Mg/Ml Vial IV PUSH Q6H PRN Itching Enoxaparin Sodium 40 mg 03/15/23 09:00 03/18/23 09:01 Enoxaparin 40 Mg/0.4 Ml Syringe SUB-Q 40 mg DAILY ABIMAEL Administration Piperacillin/Tazobactam/Dextrose 3.375 gm in 50 mls @ 100 mls/hr 03/14/23 15:00 03/18/23 09:00 Zosyn 3.375 Gm/Ns 50 Ml IVPB 100 mls/hr Q6H ABIMAEL Administration Lactated Ringer's 1,000 mls @ 100 mls/hr 03/14/23 13:13 03/18/23 00:35 Lr - Lactated Ringers Iv IV CONT 100 mls/hr .Q10H ABIMAEL Administration Potassium Chloride
[2023-03-19 05:01] VITALS: BP 135/77; PULSE 66; RESP 18; TEMP 36.7; O2SAT 95
[2023-03-19 05:41] LABS: Anion Gap 5 mmol/L (8-16); Blood Urea Nitrogen 15 mg/dL (7-17); Calcium 7.6 mg/dL (8.4-10.2); Carbon Dioxide 25 mmol/L (22-30); Chloride 106 mmol/L (98-107); Estimated CRCL calculation 74 ml/min; Estimated Glomerular Filt Rate > 60; Glucose 103 mg/dL (65-110); Sodium 136 mmol/L (137-145)
--- NOTE | 2023-03-19 06:26 | PC.NURSE ---
DOCUMENTATION AND CHARTING DONE BY PEPE SARGENT RNLP REVIEWED AND CHECKED BY THIS NURSE MICHEAL BOYCE RN
[2023-03-19] MEDS: LACTATED RINGERS 1,000 ML 100 ML IV CONT (06:44)
[2023-03-19 08:27] VITALS: O2SAT 91
[2023-03-19] MEDS: ENOXAPARIN 40 MG/0.4 ML SYRINGE SUB-Q (10:23)
[2023-03-19] MEDS: POTASSIUM CHLORIDE 20 MEQ ER TABLET 40 MEQ PO (10:23)
[2023-03-19] MEDS: PANTOPRAZOLE SODIUM IV 40 MG VIAL IV PUSH ×2 (10:24→20:02)
--- NOTE | 2023-03-19 13:46 | PM.PNGS ---
Progress Note: A&P Assessment and Plan (1) Perforated gastric ulcer: Code(s): K25.5 - Chronic or unspecified gastric ulcer with perforation Status: Acute Assessment and Plan: Continues to improve. Advance to regular diet. Stop IV fluids. Add oral analgesic options. Remove MAYO drain Continue Protonix Continue increasing activity, ambulate in halls Potassium replaced, repeat labs in am Hopefully discharge tomorrow if continues to improve Plan I have discussed the patient's case and plan of care with Dr. Ansari. Subjective Subjective Date/Time Seen: 03/19/23 13:46 Patient reports: feels better, tolerating liquids well, flatus, bowel movement and afebrile Interval history: Patient doing well today. NG out and she is tolerating full liquids. Multiple BMs since yesterday, loose/liquid. No nausea or vomiting. Still feels somewhat bloated. LUQ abd pain improved, no abdominal pain at this time. She ambulated with PT yesterday and did well. She is off O2. Review of Systems Review of Systems: ROS unchanged Exam Const: General: comfortable, no acute distress and awake Orientation/consciousness: patient oriented x3 Resp: Effort & Inspection: normal respiratory effort Auscultation: clear to auscultation bilaterally Cardio: Rate: regular rate Rhythm: regular rhythm GI: Inspection: non-distended and incision (incision dry and glue intact) GI Palp: Yes Soft to palpation, Yes Tenderness to palpation present (GI) (incisional) and No Guarding due to palpation present (GI) Auscultation: normal bowel sounds Other: MAYO with scant serosanguineous drainage in bulb, fair amount of serous drainage coming around the drain, skin without erythema Neuro: General: moves all extremities and no focal motor deficits Extrem: General: no calf tenderness and no edema Psych: Mental Status: mental status grossly normal Insight: Good insight present (Psych) Objective Data Vital Signs Vital Signs: Vital Signs - 24 hr 03/18/23 14:00 03/18/23 20:39 03/18/23 20:00 Temperature 98.3 F 97.9 F Pulse Rate 55 L 67 Respiratory Rate 14 17 Blood Pressure 129/97 H 129/64 Pulse Oximetry 98 98 Oxygen Delivery Room Air 03/19/23 05:01 03/19/23 08:27 Temperature 98.1 F Pulse Rate 66 Respiratory Rate 18 Blood Pressure 135/77 Pulse Oximetry 95 91 Oxygen Delivery Room Air Intake/Output Intake/Output: Intake & Output 03/16/23 03/17/23 03/18/23 03/19/23 23:59 23:59 23:59 23:59 Intake Total 3200 2200 1590 1000 Output Total 555 1335 1031 Balance 2645 172 772 6649 Meds/Results Medications: Active Medications Generic Name Dose Route Start Last Admin Trade Name Freq PRN Reason Stop Dose Admin Diphenhydramine HCl 25 mg 03/14/23 13:13 Diphenhydramine Hcl Inj 50 Mg/Ml Vial IV PUSH Q6H PRN Itching Enoxaparin Sodium 40 mg 03/15/23 09:00 03/19/23 10:23 Enoxaparin 40 Mg/0.4 Ml Syringe SUB-Q 40 mg DAILY ABIMAEL Administration Lactated Ringer's 1,000 mls @ 100 mls/hr 03/14/23 13:13 03/19/23 06:44 Lr - Lactated Ringers Iv IV CONT 100 mls/hr .Q10H ABIMAEL Administration Morphine Sulfate 2 mg 03/14/23 13:13 03/17/23 10:21 Morphine Sulfate (*Crx) 2 Mg/Ml Inj IV PUSH 2 mg Q2H PRN Administration Pain Rated 4-6 Morphine Sulfate 4 mg 03/14/23 13:13 03/15/23 20:29 Morphine Sulfate (*Crx) 4 Mg/Ml Inj IV PUSH 4 mg Q2H PRN Administration Pain Rated 7-10 Naloxone HCl 0.1 mg 03/14/23 13:13 Naloxone Hcl 0.4 Mg/Ml Vial IV PUSH Q2M PRN Opiate Reversal Ondansetron HCl 4 mg 03/14/23 13:13 Ondansetron Inj 4 Mg/2 Ml Vial IV PUSH Q4H PRN Nausea And Vomiting Pantoprazole Sodium 40 mg 03/14/23 21:00 03/19/23 10:24 Pantoprazole Sodium Iv 40 Mg Vial IV PUSH 40 mg Q12HR ABIMAEL Administration Radiology Results: ITS Impressions Abdomen/Pelvis CT 03/14/23 09:12 IMPRESSION: 1. Free intraperitoneal gas in the up
[2023-03-19 14:40] VITALS: BP 140/74; PULSE 76; RESP 16; TEMP 36.3; O2SAT 95
[2023-03-19 20:00] VITALS: O2SAT 95
[2023-03-19 20:06] VITALS: BP 140/83; PULSE 73; RESP 18; TEMP 36.8; O2SAT 94
[2023-03-20 04:28] VITALS: BP 151/79; PULSE 65; RESP 18; TEMP 36.4; O2SAT 93
[2023-03-20 05:43] LABS: Anion Gap 4 mmol/L (8-16); Blood Urea Nitrogen 9 mg/dL (7-17); Calcium 7.8 mg/dL (8.4-10.2); Carbon Dioxide 26 mmol/L (22-30); Chloride 106 mmol/L (98-107); Estimated CRCL calculation 63 ml/min; Estimated Glomerular Filt Rate > 60; Glucose 107 mg/dL (65-110); Potassium 3.6 mmol/L (3.4-5.0); Sodium 136 mmol/L (137-145)
[2023-03-20] MEDS: ENOXAPARIN 40 MG/0.4 ML SYRINGE SUB-Q (08:36)
--- NOTE | 2023-03-20 08:57 | PM.DS ---
DS: Admitting Diagnosis Discharge Date 03/20/2023 Admitting Diagnosis perforated gastric ulcer DS: Discharge Diagnosis Discharge Diagnosis (1) Perforated gastric ulcer: Code(s): K25.5 - Chronic or unspecified gastric ulcer with perforation Status: Acute Assessment and Plan: doing well, continue routine postoperative care, home with p.o. analgesia and PPI, follow up 2 weeks DS: Summary Hospital Course Reason for hospitalization: perforated gastric ulcer Hospital Course: The patient is a 67-year-old female presenting to the emergency department on 03/14 with severe upper abdominal pain. Workup, including imaging, was significant for perforated viscus. The patient was emergently taken to the operating and perforated gastric ulcer was found, please see full operative report for details of that procedure. Postoperatively, the patient did well was transferred to the surgical floor. She was continued on IV antibiotics as well as an IV PPI. The following day the patient had her Hammond removed and she was able to be up in the chair. On postoperative day 3. The patient had a upper GI that showed no leak. She did have a bit of an ileus so her NG was left place. The following day the patient had multiple bowel movements and her NG was removed. She was slowly advanced on a diet which she tolerated without difficulty. The patient has been up and moving and her pain is well controlled with p.o. analgesia. The patient will now be discharged home with p.o. analgesia and PPI. She will follow up with me in 2 weeks. Status at Discharge Functional status at discharge: independent ambulation Overall status at discharge: patient is progressing back to baseline Time Spent with Patient Time attestation: Total time spent providing and/or coordinating discharge services: Time spent: Less than 30 minutes Exam Const: General: cooperative, comfortable and no acute distress Resp: Auscultation: clear to auscultation bilaterally Cardio: Rate: regular rate Rhythm: regular rhythm GI: Inspection: normal to inspection and incision GI Palp: Yes abdominal tenderness and Yes Soft to palpation DS: Data Data Completed and Pending Labs on day of discharge: Labs from last 24 hours 03/20/23 05:16 Sodium 136 L Potassium 3.6 Chloride 106 Carbon Dioxide 26 Anion Gap 4 L BUN 9 D Creatinine 0.60 L Estim Creat Clear Calc 63 Estimated GFR > 60 Glucose 107 Calcium 7.8 L Discharge Plan Discharge Attending physician on discharge: Ele Ansari Discharging Clinician: Ele Ansari Anticipated Discharge Date/Time: 03/20/23 11:00 Patient Disposition: Home, Self-Care Activity: may shower and no straining Diet: as tolerated Wound Care Instructions: incision open to air Patient Instructions: Antibiotic Form Stand Alone Forms: General Discharge Information Follow-up/Referrals: Ele Ansari MD [Physician] - 2 Weeks Norm Lutz MD [Primary Care Provider] - Discharge Medications: New hydrocodone-acetaminophen 5-325 mg tablet 1 tablet PO Q6H PRN (Reason: pain) Qty: 20 0RF pantoprazole [Protonix] 40 mg tablet,delayed release (DR/EC) 40 mg PO QAM 56 Days Qty: 56 0RF Continued solifenacin 5 mg tablet 1 tablet PO QAM Immunostart 2 tab-cap PO QAM Vitamin K2+D3 1 tab-cap QAM [id number] oil-vit D3 2 cap BYMOUTH DAILY citalopram 20 mg tablet 20 mg PO QAM Qty: 90 1RF Rx Instructions: TAKE 1 TABLET BY MOUTH DAILY Date of admission: 03/14/23 13:13 Primary Care Provider: Norm Lutz Admitting Provider: Ele Ansari Attending physician on admission: Ele Ansari Condition: Serious
[2023-03-20] MEDS: PANTOPRAZOLE 40 MG TABLET PO (10:36)
== END 2023-03-20 13:05 | disposition home or self-care (01) | DRG 327 ==
LOC: ANHED 10:20 → ANHSURGERY 10:35 → ANH2MED 17:49
PROVIDERS: Nurse Practitioner Family; Admitting Provider Surgery; Emergency Provider Emergency Medicine; PCP Family Medicine; Visit Provider Surgery
PROC: 0DU707Z Supplement Stomach, Pylorus with Autologous Tissue Substitute, Open Approach (ICD-10-PCS; CPT 49000; principal; 2023-03-14 11:00)
DX: K25.5 Chronic or unspecified gastric ulcer with perforation (principal); K56.7 Ileus, unspecified; K91.89 Other postprocedural complications and disorders of digestive system; B39.9 Histoplasmosis, unspecified; E78.5 Hyperlipidemia, unspecified; N32.81 Overactive bladder; M41.9 Scoliosis, unspecified; F41.9 Anxiety disorder, unspecified; F98.8 Other specified behavioral and emotional disorders with onset usually occurring in childhood and adolescence
CPT/HCPCS: 36415; 74018; 74177; 74240; 80048; 80053; 81003; 83690; 83735; 85025; 85027; 85610; 85730; 86850; 86900; 86901; 96361; 96365; 96375; 96376; 97161; 97165; 97530; 97535; 99285; A9270; C1781; C9113; J0330; J1650; J2270; J2405; J2543; J2704; J3010; J3480; J7030; J7040; J7120; Q9967

== ENCOUNTER 2023-05-27 02:01 | Day surgery (SDC) | payer MEDICARE, SELFPAY ==
[2023-05-13 14:25] VITALS: BMI 19.5
--- NOTE | 2023-05-25 09:34 | SUR.PREOP ---
Patient called regarding upcoming procedure. Reviewed preop instructions, appointment times, and procedure prep.
--- NOTE | 2023-05-26 17:11 | PM.HPGS ---
History of Present Illness History of Present Illness Consent: Risks, benefits, and alternatives have been discussed and questions answered. Patient agrees to proceed with procedure. Chief complaint: Chronic/unspecified gastric ulcer with perforation Narrative: Judith Quinn is a 67 year old female Here for follow-up of ulcer. She presented to the hospital with acute abdominal pain and had peritonitis due to a perforated ulcer. Was oversewn by surgery. She apparently had been found to have an ulcer several years ago but did not follow up on that. Review of Systems Review of Systems: All systems reviewed & are unremarkable except as noted in HPI and below PMFSH Past Medical History Medical History ADD (attention deficit disorder) Anxiety Histoplasmosis History of vaginal delivery Hyperlipidemia Overactive bladder Scoliosis Surgical History Surgical History History of ankle surgery History of surgery on wrist History of tubal ligation Hx of exploratory laparotomy Exploratory laparotomy, repair of perforated gastric ulcer with Toan patch on 03/14/23 PDC Family History Family History Father Hypertension Family history of hypercholesterolemia Family history of throat cancer CHF (congestive heart failure) Mother Family history of elevated blood lipids Family history of lung cancer Heart disease Dementia Sibling Sjogren syndrome with other organ involvement Dementia Other Family history of heart disease in male family member before age 55 Family history of malignant neoplasm Social History Social History Smoking status: Never smoker Second hand tobacco smoke exposure: Yes (BROTHER) Alcohol intake: current Substance use: never Substance use type: does not use Lack of Transportation: No Lack of Food: Never True Current Housing: I Have Housing Concerned About Future Housing: No Difficulty Paying Gas/Electric Bills: No Difficulty Paying for Meds: No Currently Unemployed: No Education: High School Diploma/GED Difficulty w/ Childcare or Family Care: No Living arrangements: with family Occupation/Education: retired 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 Gender identity (if verbalized by the patient): Female Spiritual care concerns: No Meds Home Medications and Allergies Home Medications Medication Instructions Recorded Confirmed Type solifenacin 5 mg tablet 1 tablet PO QAM 07/10/22 05/27/23 History citalopram 20 mg tablet 20 mg PO QAM #90 tabs 11/04/22 05/27/23 Rx pantoprazole 40 mg tablet,delayed 40 mg PO QAM 8 weeks #56 tabs 03/20/23 05/27/23 Rx release (Protonix) omega-3s 667 [id number] 1 cap PO DAILY 04/30/23 05/27/23 History oil-vitamin D3 250 unit capsule Allergies Allergy/AdvReac Type Severity Reaction Status Date / Time No Known Allergies Allergy Verified 05/27/23 12:38 Exam Const: General: alert Orientation/consciousness: patient oriented x3 Resp: Auscultation: clear to auscultation bilaterally Cardio: Rhythm: regular rhythm GI: GI Palp: Yes Soft to palpation and No Tenderness to palpation present (GI) Neuro: General: patient oriented x3 Assessment and Plan Assessment and plan (1) Perforated gastric ulcer: Code(s): K25.5 - Chronic or unspecified gastric ulcer with perforation Status: Acute Assessment and Plan: EGD with possible biopsy or dilatation or cautery.
[2023-05-27 12:39] VITALS: BP 129/74; PULSE 63; RESP 18; TEMP 36.4; O2SAT 93
[2023-05-27] MEDS: LACTATED RINGERS 1,000 ML 150 ML IV CONT (12:41)
--- NOTE | 2023-05-27 12:55 | WPDANESEPPF ---
Anes - Initial Pre Proc Eval Procedure: Operation Date: 05/27/23 14:00 Proposed Procedures p Esophagogastroduodenoscopy - Lui Barrientos MD Date/Time: 05/27/23 12:55 Surgeon: Lui Barrientos MD Pre Op Diagnosis: Chronic/unspecified gastric ulcer with perforation Patient Data Age: 67 Gender: F Height: 1.68 m Weight: 56.5 kg Last Vital Signs Temp 97.5 F L 05/27/23 12:39 Pulse 63 05/27/23 12:39 Resp 18 05/27/23 12:39 BP 129/74 05/27/23 12:39 Pulse Ox 93 05/27/23 12:39 O2 Del Method Room Air 05/27/23 12:39 Allergies Allergy/AdvReac Type Severity Reaction Status Date / Time No Known Allergies Allergy Verified 05/27/23 12:38 Home Medications Medication Instructions Recorded Confirmed Type solifenacin 5 mg tablet 1 tablet PO QAM 07/10/22 05/27/23 History citalopram 20 mg tablet 20 mg PO QAM #90 tabs 11/04/22 05/27/23 Rx pantoprazole 40 mg tablet,delayed 40 mg PO QAM 8 weeks #56 tabs 03/20/23 05/27/23 Rx release (Protonix) omega-3s 667 te-lms-nwz-fish 1 cap PO DAILY 04/30/23 05/27/23 History oil-vitamin D3 250 unit capsule Patient hx anesthesia problems: none Family hx anesthesia problems: none Results Review: All pre-operative results and documents have been reviewed as part of the pre-operative evaluation. FOR[facility]LY [facility] Past Medical History Medical History ADD (attention deficit disorder) Anxiety Histoplasmosis History of vaginal delivery Hyperlipidemia Overactive bladder Scoliosis Surgical History Surgical History History of ankle surgery History of surgery on wrist History of tubal ligation Hx of exploratory laparotomy Exploratory laparotomy, repair of perforated gastric ulcer with Toan patch on 03/14/23 PDC Family History Family History Father Hypertension Family history of hypercholesterolemia Family history of throat cancer CHF (congestive heart failure) Mother Family history of elevated blood lipids Family history of lung cancer Heart disease Dementia Sibling Sjogren syndrome with other organ involvement Dementia Other Family history of heart disease in male family member before age 55 Family history of malignant neoplasm Social History Social History (Updated 04/30/23 @ 14:24 by Shweta Vizcarra Nixon) Smoking status: Never smoker Second hand tobacco smoke exposure: Yes (BROTHER) Alcohol intake: current Substance use: never Substance use type: does not use Lack of Transportation: No Lack of Food: Never True Current Housing: I Have Housing Concerned About Future Housing: No Difficulty Paying Gas/Electric Bills: No Difficulty Paying for Meds: No Currently Unemployed: No Education: High School Diploma/GED Difficulty w/ Childcare or Family Care: No Living arrangements: with family Occupation/Education: 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 Informed Consent: The patient's anesthetic plan and its attendant risks and benefits were discussed with the patient/family/POA. Questions were solicited and answers provided to the satisfaction of the patient/family/POA.
[2023-05-27 13:52] VITALS: BP 99/63; PULSE 60; RESP 22; O2SAT 98
[2023-05-27 14:02] VITALS: BP 115/69; PULSE 56; RESP 19; O2SAT 100
[2023-05-27 14:12] VITALS: BP 129/80; PULSE 52; RESP 22; O2SAT 100
== END 2023-05-27 14:18 | disposition home or self-care (01) ==
PROVIDERS: PCP Nurse Practitioner; Visit Provider Internal Medicine Gastroenterology
PROC: 0DJ08ZZ Inspection of Upper Intestinal Tract, Via Natural or Artificial Opening Endoscopic (ICD-10-PCS; CPT 43235; principal; 2023-05-27 14:00)
DX: Z09 Encounter for follow-up examination after completed treatment for conditions other than malignant neoplasm (principal); K21.9 Gastro-esophageal reflux disease without esophagitis; Z87.11 Personal history of peptic ulcer disease; F41.9 Anxiety disorder, unspecified
CPT/HCPCS: 43239; 87081; 88305; J2704; J7120

== ENCOUNTER 2023-07-16 14:41 | Outpatient (CLI) | payer MEDICARE, SELFPAY ==
--- NOTE | ~2023-07-16 | MM_ITS ---
EXAMINATION: MM screening [facility] BI w [place] HISTORY: Screening mammogram TECHNIQUE: Craniocaudal and mediolateral oblique 3-D tomosynthesis images were obtained and synthetic 2-D images were generated. CAD analysis was submitted and interpreted. COMPARISON: 05/29/2022, 02/08/2021, 09/21/2019 BREAST PARENCHYMAL COMPOSITION: There are scattered areas of fibroglandular density. FINDINGS: No suspicious mass, calcification, or architectural distortion are identified in either anjana ast to suggest malignancy. There has been no suspicious interval change. IMPRESSION: 1. No mammographic evidence of malignancy. 2. Recommend routine screening mammography in one year. BI-RADS Category 1: Negative Reviewed, dictated and finalized at location A. AND DANCE PERFORMER
== END 2023-07-16 14:42 | disposition home or self-care (01) ==
PROVIDERS: PCP Nurse Practitioner; Visit Provider Family Medicine
DX: Z12.31 Encounter for screening mammogram for malignant neoplasm of breast (principal)
CPT/HCPCS: 77063; 77067

== ENCOUNTER 2023-08-10 11:22 | Inpatient (IN) | payer MEDICARE, SELFPAY ==
[2023-08-10] VITALS (7 sets, daily range): BP systolic 106–112; BP diastolic 68–88; PULSE 61–110; RESP 16–18; TEMP 36.2–37.3; O2SAT 92–99; BMI 21.3
--- NOTE | 2023-08-10 | ECHO_ITS ---
Patient Info Name: Judith Quinn Age: 67 years : 1955 Gender: Female Ht: 66 in Wt: 116 lbs BSA: 1.56 m2 HR: 110 bpm BP: 106 / 88 mmHg Technical Quality: Poor Exam Date: 08/10/2023 4:21 PM Exam Location: Echo Lab Patient Status: Inpatient Admit Date: 08/10/2023 Staff Ordering Physician: Sorin Pantoja APRN Detective Private Eye: Roxie Maldonado RDCS Attending Provider: Isrrael Bowden MD Referring Physician: Kit CLEANING; Exam Type: CA echo doppler color flow Study Info Indications R55 - Syncope and collapse Complete two-dimensional, color flow and Doppler transthoracic echocardiogram is performed. Summary 1. Complete two-dimensional, color flow and Doppler transthoracic echocardiogram is performed. 2. Technically suboptimal study due to poor sonographic images. 3. Left ventricular chamber dimension is normal. 4. Left ventricular systolic function is normal, estimated at 65-70%. 5. The left ventricular diastolic function is normal. 6. E/e' 9 is minimally elevated. 7. The aortic valve is not well visualized. Cannot determine number of aortic valve leaflets. 8. There is mild aortic valve sclerosis. 9. There is trace tricuspid valve regurgitation. 10. No pulmonary hypertension, estimated pulmonary arterial systolic pressure is 32 mmHg. Left Ventricle E/e' 9 is minimally elevated. Technically suboptimal study due to poor sonographic images. Left ventricular chamber dimension is normal. Left ventricular systolic function is normal, estimated at 65-70%. The left ventricular diastolic function is normal. Right Ventricle Right ventricular chamber dimension is normal. Right ventricular systolic function is normal. Left Atria Left atrial chamber dimension is normal. Right Atria Right atrial chamber dimension is normal. Aortic Valve The aortic valve is not well visualized. Cannot determine number of aortic valve leaflets. There is mild aortic valve sclerosis. There is no aortic valve stenosis. There is no aortic valve regurgitation. Pulmonic Valve There is no pulmonic regurgitation. Mitral Valve There is no mitral valve stenosis. There is no mitral valve regurgitation. Tricuspid Valve There is trace tricuspid valve regurgitation. No pulmonary hypertension, estimated pulmonary arterial systolic pressure is 32 mmHg. Pericardium/Pleural There is no pericardial effusion. Inferior Vena Cava Inferior vena cava is not well visualized. Aorta The aortic root size at the sinus of Valsalva is normal. Left Ventricular Outflow Tract Name Value Normal LVOT 2D LVOT Diameter 2.0 cm LVOT Doppler LVOT Peak Gradient 4 mmHg LVOT Mean Gradient 2 mmHg LVOT VTI 14 cm LVOT VTI/AV VTI Ratio 0.7 LVOT Stroke Volume 44 ml LVOT CO 5.3 l/min LVOT CI 3.4 l/min/m2 Pulmonic Valve Name Value Normal
--- NOTE | ~2023-08-10 | XR_ITS ---
Portable chest x-ray Comparison: 10/21/2021 Clinical History: Status post fall Findings: Lungs are clear, without focal consolidation or pleural effusion. Cardiomediastinal silho uette is stable. Bones and soft tissues are unremarkable. Impression: Normal chest. Reviewed, dictated and finalized at location . NSED MARRIAGE AND FAMILY THERAPIST Impression: Normal chest.
--- NOTE | ~2023-08-10 | CT_ITS ---
EXAMINATION: CT brain wo con DATE: 08/10/2023 12:31 INDICATION: Syncope. TECHNIQUE: Computed tomography (CT) of the head was performed without intravenous contrast. The mA wa s adjusted according to patient size. Iterative reconstruction technique was employed. The dose-lengt h product was 681.00 mGy-cm. COMPARISON: None FINDINGS: There is no intracranial hemorrhage, acute infarction, or abnormal intracranial mass lesion . There are scattered areas of low attenuation in the cerebral white matter, which is within normal l imits for the patient's age. The ventricles are normal in size. The paranasal sinuses are clear. Ther e are likely changes of ocular lens replacement surgeries. The mastoid air cells are normal. IMPRESSION: 1. Normal aging brain. Reviewed, dictated and finalized at location A. EL ASSISTANT IMPRESSION: 1. Normal aging brain.
--- NOTE | ~2023-08-10 | XR_ITS ---
Left elbow Technique: AP, oblique, and lateral views were obtained. Clinical History: Pain Findings: No acute fracture or dislocation is seen. Osseous alignment is anatomic. Joint spaces are p reserved. There is no displacement of the fat pads, and soft tissues are unremarkable. Impression: Unremarkable radiographs. Reviewed, dictated and finalized at location . TRIMMER Impression: Unremarkable radiographs.
--- NOTE | ~2023-08-10 | XR_ITS ---
AP view of the pelvis and AP and lateral views of the left hip Clinical history: Pain Findings: There is a midcervical fracture of the left femoral neck, minimally displaced. Osseous alig nment is anatomic. Right hip arthroplasty in place.. Soft tissues are unremarkable. Impression: Mid cervical fracture of the left femoral neck, as detailed above. Reviewed, dictated and finalized at location . AND MACHINE OPERATOR Impression: Mid cervical fracture of the left femoral neck, as detailed above.
--- NOTE | ~2023-08-10 | XR_ITS ---
EXAMINATION: XR surgery orthopedic DATE: 08/11/2023 08:42 INDICATION: Left femoral neck fracture. TECHNIQUE: 2 intraoperative spot fluoroscopic views of left hip were obtained. I was not present. Flu oroscopy exposure time was 3 minutes 48 seconds COMPARISON: Left hip radiographs 08/10/23 FINDINGS: There is a subcapital fracture of left femoral neck. The distal fracture fragment demonstra alisa impaction and valgus angulation. Internal fixation is seen with 3 lag screws. IMPRESSION: 1. Subcapital fracture of left femoral neck status post internal fixation. Reviewed, dictated and finalized at location A. SALESPERSON
--- NOTE | ~2023-08-10 | CT_ITS ---
EXAMINATION: CT cervical spine wo con DATE: 08/10/2023 12:32 INDICATION: Syncope. TECHNIQUE: Computed tomography (CT) of the cervical spine was performed without intravenous contrast. Automated exposure control and iterative reconstruction technique were employed. The dose-length pro duct was 159.17 mGy-cm. COMPARISON: None FINDINGS: There is mild scarring at the lung apices. There is 11 degrees dextroscoliosis of cervical spine. There is mild chronic anterior wedging of C6 and T3 vertebral bodies. There is a chronic compr ession fracture of T1 with 1/5 loss of height. There is mildly decreased disc height at C2-C3, severe ly decreased disc height at C3-C4 and C4-C5, and moderately decreased disc height at C6-C7. The follo wing disc levels are specifically discussed: C2-C3: There is mild bilateral uncovertebral joint osteoarthritis. There is severe right and mild lef t facet joint osteoarthritis. There is no neural foraminal stenosis. There is no central canal stenos is. C3-C4: There is severe bilateral uncovertebral joint osteoarthritis. There is moderate bilateral face t joint osteoarthritis. There is mild bilateral neural foraminal stenosis. There is mild central lana l stenosis. C4-C5: There is severe bilateral uncovertebral joint osteoarthritis. There is mild bilateral facet christal int osteoarthritis. There is moderate bilateral neural foraminal stenosis. There is mild central lana l stenosis. C5-C6: There is mild bilateral uncovertebral joint osteoarthritis. There is mild right and moderate l eft facet joint osteoarthritis. There is mild right and moderate left neural foraminal stenosis. Ther e is no central canal stenosis. C6-C7: There is severe bilateral uncovertebral joint osteoarthritis. There is moderate right and froy re left facet joint osteoarthritis. There is moderate right and mild left neural foraminal stenosis. There is mild central canal stenosis. C7-T1: There is no uncovertebral joint osteoarthritis. There is severe right and mild left facet join t osteoarthritis. There is mild right neural foraminal stenosis. There is no central canal stenosis. IMPRESSION: 1. No acute fracture. 2. Severe cervical spondylosis. Reviewed, dictated and finalized at location A. ANALYST
--- NOTE | 2023-08-10 11:58 | ED.FALL ---
HPI - Fall General Chief Complaint: Fall Stated Complaint: GLF-left hip pain and +LOC Time Seen by Provider: 08/10/23 11:57 Source: patient History of Present Illness HPI Narrative: 85 years old white female, playing yoga as usual which she has been doing it for years, nothing different today than before, workup on the floor, does not remember what happened, she denies any symptoms prior blacking out. She denies any history of blacking out before. In the ER complaining of left hip pain and left elbow pain, struck the left side of her head on the floor. No neck pain. Patient denies any chest pain, shortness of breath, back pain or headache. Related Data Home Medications Medication Instructions Recorded Confirmed solifenacin 5 mg tablet 1 tablet PO QAM 07/10/22 08/10/23 omega-3s 667 nr-lyo-xpv-fish 1 cap PO DAILY 04/30/23 08/10/23 oil-vitamin D3 250 unit capsule Allergies Allergy/AdvReac Type Severity Reaction Status Date / Time No Known Allergies Allergy Verified 08/10/23 11:24 Review of Systems Review of Systems: All systems reviewed & are unremarkable except as noted in HPI and below PMFSH Past Medical History Medical History ADD (attention deficit disorder) Anxiety Histoplasmosis History of vaginal delivery Hyperlipidemia Overactive bladder Scoliosis Surgical History Surgical History History of ankle surgery History of surgery on wrist History of tubal ligation Hx of exploratory laparotomy Exploratory laparotomy, repair of perforated gastric ulcer with Toan patch on 03/14/23 PDC Family History Family History Father Hypertension Family history of hypercholesterolemia Family history of throat cancer CHF (congestive heart failure) Mother Family history of elevated blood lipids Family history of lung cancer Heart disease Dementia Sibling Sjogren syndrome with other organ involvement Dementia Other Family history of heart disease in male family member before age 55 Family history of malignant neoplasm Social History Social History Smoking status: Never smoker Second hand tobacco smoke exposure: Yes (BROTHER) Alcohol intake: current Substance use: never Substance use type: does not use Lack of Transportation: No Lack of Food: Never True Current Housing: I Have Housing Concerned About Future Housing: No Difficulty Paying Gas/Electric Bills: No Difficulty Paying for Meds: No Currently Unemployed: No Education: High School Diploma/GED Difficulty w/ Childcare or Family Care: No Living arrangements: with family Occupation/Education: retired 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 Musculoskeletal: diffuse tenderness left hip laterally, severe limited range of motion, no change of the length of the leg, not externally rotated. Neurologic: Alert and oriented ?3, KNAPSACK SPRAYER is normal as tested, no gross motor deficit
--- NOTE | 2023-08-10 11:59 | ECG_ITS ---
Measurements Intervals [place] Rate: 100 P: 76 CT: 171 QRS: 43 QRSD: 74 T: 83 QT: 312 QTc: 404 Interpretive Statements SINUS TACHYCARDIA FREQUENT ATRIAL PREMATURE COMPLEXES CANNOT RULE OUT SEPTAL INFARCT, AGE INDETERMINATE BORDERLINE ST-T WAVE ABNORMALITY- DIFFUSE LEADS ABNORMAL ECG COMPARED TO ECG 12/17/2021 10:58:39 SINUS TACHYCARDIA NOW PRESENT ATRIAL PREMATURE COMPLEXES NOW PRESENT Electronically Signed On 08-10-2023 13:11:26 PARKING PATROLLER by Elias Shepard D.O.
[2023-08-10] MEDS: ONDANSETRON INJ 4 MG/2 ML VIAL IV PUSH (13:03)
[2023-08-10] MEDS: MORPHINE SULFATE (*CRX) 4 MG/ML INJ IV PUSH (13:03)
[2023-08-10 13:09] LABS: Basophils Absolute Auto 0.1 K/mm3 (0.0-0.1); Basophils Percent Auto 0.4 % (0.2-1.2); Eosinophils Percent Auto 0.3 % (0-4.4); Hematocrit 36.2 % (37.0-47.0); Hemoglobin 11.7 g/dL (12.0-15.0); Immature Granulocyte Absolute 0.06 K/mm3 (0.00-0.031); Immature Granulocyte Percent A 0.5 % (0-0.5); Lymphocytes Percent Auto 8.4 % (18.3-44.2); Mean Corpuscular HGB Conc 32.3 g/dl (32-36); Mean Corpuscular Hemoglobin 29.3 pg (26-34); Mean Corpuscular Volume 90.7 fl (80-100); Mean Platelet Volume 9.3 fl (7.4-10.4); Monocytes Absolute Auto 0.5 K/mm3 (0.1-0.6); Monocytes Percent Auto 3.9 % (2.6-8.5); Neutrophils Absolute Auto 10.3 K/mm3 (1.3-6.7); Neutrophils Percent Auto 86.5 % (45.5-73.1); Platelet Count Result 253 k/mm3 (150-375); Red Blood Count 3.99 M/mm3 (4.2-5.4); Red Cell Distribution Width 12.9 % (11.5-14.5)
--- NOTE | 2023-08-10 13:11 | PM.IMHP ---
H&P: HPI History of Present Illness Date/Time: 08/10/23 13:11 Chief Complaint: Left hip pain, fracture, syncope Narrative: This is a 67-year-old female patient history of ADHD depression osteopenia who is admitted to the hospital for left hip fracture sustained after a syncopal episode while patient is participating in yoga. Patient describes standing on 1 leg and leaning forward her arms outstretched when the next thing she knew she was lying on the floor with left hip pain. She does not recall feeling bad before the event. Patient reports that she has had numerous fractures and surgeries related to bones and joints. Patient reports that this yoga is normal for her and she does not know why she had a problem today. She is on Adderall for ADHD and noted to have low weight and poor appetite. She ate yogurt for dinner last night and yogurt again for breakfast this morning. Patient denies any chest pain shortness a breath nausea vomiting abdominal pain fever chills cough or other concerning symptoms. ER evaluation is concerning for urinary tract infection. Urine culture in process and patient treated with Rocephin. White blood cell count mildly elevated at 12. Orthopedics was consulted and will see patient with likely operative repair tomorrow. Review of Systems Review of Systems: All systems reviewed & are unremarkable except as noted in HPI and below PMFSH Past Medical History Medical History ADD (attention deficit disorder) Anxiety Elbow fracture, right Histoplasmosis History of vaginal delivery Hyperlipidemia Left patella fracture Overactive bladder Scoliosis Surgical History Surgical History History of ankle surgery History of surgery on wrist History of total right hip arthroplasty History of tubal ligation Hx of exploratory laparotomy Exploratory laparotomy, repair of perforated gastric ulcer with Toan patch on 03/14/23 PDC Family History Family History Father Hypertension Family history of hypercholesterolemia Family history of throat cancer CHF (congestive heart failure) Mother Family history of elevated blood lipids Family history of lung cancer Heart disease Dementia Sibling Sjogren syndrome with other organ involvement Dementia Other Family history of heart disease in male family member before age 55 Family history of malignant neoplasm Social History Social History Smoking status: Never smoker Second hand tobacco smoke exposure: Yes (BROTHER) Alcohol intake: never Substance use: never Substance use type: does not use Do You Feel Safe in your Home?: No Lack of Transportation: No Lack of Food: Never True Current Housing: I Have Housing Concerned About Future Housing: No Difficulty Paying Gas/Electric Bills: No Difficulty Paying for Meds: No Currently Unemployed: No Education: High School Diploma/GED Difficulty w/ Childcare or Family Care: No Living arrangements: with family Occupation/Education: retired 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 Gender identity (if verbalized by the patient): Female Spiritual care concerns: No Meds Home Medications and Allergies Home Medications Medication Instructions Recorded Confirmed Type solifenacin 5 mg tablet 1 tablet PO QAM 07/10/22 08/10/23 History pantoprazole 40 mg tablet,delayed 40 mg PO QAM 8 weeks #56 tabs 03/20/23 08/10/23 Rx release (Protonix) omega-3s 667 tw-ndg-olz-fish 1 cap PO DAILY 04/30/23 08/10/23 History oil-vitamin D3 250 unit capsule citalopram 20 mg tablet 20 mg PO QAM #90 tabs 06/19/23 08/10/23 Rx dextroamphetamine-amphetamine ER 20 mg PO QAM #30 caps 08/10/23 08/10/23 Rx 20 mg 24hr capsule,extend
[2023-08-10 13:19] LABS: INR 1.1; Prothrombin Time 14.2 Seconds (11.1-14.7)
[2023-08-10 13:20] LABS: Alanine Aminotransferase 21 U/L (6-35); Albumin Level 3.9 g/dL (3.5-5.1); Alkaline Phosphatase 75 U/L (38-126); Anion Gap 5 mmol/L (8-16); Aspartate Amino Transferase 31 U/L (14-36); Bilirubin,Total 1.2 mg/dL (0.2-1.3); Blood Urea Nitrogen 23 mg/dL (7-17); Calcium 9.2 mg/dL (8.4-10.2); Carbon Dioxide 28 mmol/L (22-30); Chloride 102 mmol/L (98-107); Creatine Kinase 88 U/L (30-135); Estimated CRCL calculation 56 ml/min; Estimated Glomerular Filt Rate > 60; Glucose 107 mg/dL (65-110); Partial Thromboplastin Time 26.8 SECONDS (22.3-36.8); Sodium 135 mmol/L (137-145)
[2023-08-10 13:27] LABS: Appearance Urine Cloudy (Clear); Bacteria Urine 4+ /hpf; Bilirubin Urine Negative (Negative); Color Urine Yellow (Yellow); Glucose Urine UA Negative (Negative); Ketones Urine Negative (Negative); Leukocyte Esterase Ur 2+ LEU/UL (Negative); Nitrate Urine Positive (Negative); Non Pathogenic Casts 0-2; Protein Urine Negative (Negative); RBC Urine 0-2 /hpf (0-2); Specific Grav Ur 1.017 (1.001-1.035); Squamous Epithelial Cell Urine None seen /hpf (Few); WBC Urine >100 /hpf; pH Urine 7.5 (5.0-9.0)
[2023-08-10 13:29] LABS: Add Urine Microscopic? YES
[2023-08-10 13:32] LABS: Troponin I < 0.012 ng/mL (0.000-0.034)
[2023-08-10 13:40] LABS: Amphetamine Screen Urine Positive (Negative); Barbiturate Screen Urine Negative (Negative); Benzodiazepines Screen Urine Negative (Negative); Cannabinoid Screen Urine Negative (Negative); Cocaine Screen Urine Negative (Negative); Methadone Screen Urine Negative (Negative); Opiate Screen Urine Negative (Negative); Phencyclidine Screen Urine Negative (Negative)
[2023-08-10] MEDS: SODIUM CHLORIDE 0.9% IV 1,000 ML 125 ML IV CONT (14:20)
[2023-08-10] MEDS: HYDROcodone/acetaminophen (*CRX) 7.5-325 MG TABLET 1 TAB PO ×2 (15:02→21:36)
[2023-08-10] MEDS: CYCLOBENZAPRINE HCL 10 MG TABLET PO ×2 (15:02→22:40)
[2023-08-10] MEDS: PANTOPRAZOLE SODIUM IV 40 MG VIAL IV PUSH (15:03)
--- NOTE | 2023-08-10 15:51 | PM.CNOR ---
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 Patient has a history of a right hip fracture of which she underwent a right total hip arthroplasty [place]. She has had several falls and several broken bones over the last several years. She does have a history of osteopenia as well. Radiographs in the emergency room revealed a midcervical fracture of the left femoral neck. The fracture type and injury as well as radiographs discussed with the patient and family. Operative and nonoperative treatment options reviewed. The patient elects for operative treatment. Risks of surgery including but not limited to neurovascular damage, wound complications, blood clot, pulmonary embolus, stroke, myocardial infarction, anesthetic risks up to and including were reviewed. Continued pain and possible dysfunction were explained. Risk of nonunion, malunion or late displacement discussed. Stiffness, pain and possible dysfunction of the joint discussed. Fracture precautions and activity restrictions reviewed. No guarantees were offered. The patient understands and wishes to proceed. Plan: CRPP Left Hip by Dr. Griggs Obtain Consent. NPO at midnight. Bedrest. Pain control. Monitor Vitals. HOLD anticoagulation. Medical clearance. (2) Urinary tract infection: Code(s): N39.0 - Urinary tract infection, site not specified Status: Acute (3) Syncope and collapse: Code(s): R55 - Syncope and collapse Status: Acute Assessment and Plan: Workup per the medicine team. Appreciate medical clearance for surgical intervention. Plan Reviewed history, exam, radiographs and current labs with attending MD and covering surgeon, Dr. Griggs, who agrees with current plan as indicated above. No further recommendations from Dr. Griggs at this time. This document was completed by using [employer] Direct speech recognition software, therefore hat trimmer variances may occur. Despite proofreading, typographical errors may also occur. 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 She had a likely syncopal episode that she can not recall which led to a fall. She reports confusion and does not have memory of the fall until the time of the ambulance arrival. Patient does have a history of several falls and fractures. She also has a history of inability to tolerate hardware with hardware removal in both her left ankle and right wrist in the past. She has had a right total hip arthroplasty status post fall at [facility]. patient had a bone mineral density test last in 2021 which revealed osteopenia. Radiographs in the emergency room reveal midcervical fracture of the left femoral neck. Patient admitted to the hospitalist service for further orthopedic consult and care. Review of Systems Constitutional: Constitutional: Reports no additional constitutional complaints, Denies chills, Denies fatigue, Denies fever(s), Denies headache(s) and Denies weakness Eyes: Eyes: Denies change in vision ENT: Reports Normal hearing present and Denies headache(s) Cardiovascular: Cardiovascular: Denies chest pain and Denies dyspnea Respiratory: Respiratory: Denies cough, Denies dyspnea and Denies wheezing Gastrointestinal: Gastrointestinal: Denies constipation, Denies
[2023-08-10] MEDS: CITALOPRAM HYDROBROMIDE 20 MG TABLET PO (18:38)
[2023-08-10] MEDS: SOLIFENACIN 5 MG TABLET PO (18:38)
--- NOTE | 2023-08-10 19:26 | ADMGEN ---
This patient, Judiht Quinn, was admitted to Medical Room 249-01. Patient/family oriented to hospital policies and general routines including ID bracelet, bed and alarms, visiting hours, pain management, procedures, bathroom and other care routines, personal items, smoking policy, room service/diet, and visiting hours. Information on how to activate the Rapid Response Team has been discussed. Patient/Family are encouraged to report perceived risks to care and to ask questions if they do not understand what they are told or what they should do.
[2023-08-10] MEDS: SODIUM CHLORIDE 0.9% IV 1,000 ML 65 ML IV CONT (22:40)
[2023-08-11] VITALS (21 sets, daily range): BP systolic 96–132; BP diastolic 58–79; PULSE 64–100; RESP 10–20; TEMP 36–37.5; O2SAT 92–100
[2023-08-11] MEDS: MORPHINE SULFATE (*CRX) 4 MG/ML INJ IV PUSH (04:32)
[2023-08-11 06:02] LABS: Basophils Absolute Auto 0.1 K/mm3 (0.0-0.1); Basophils Percent Auto 0.7 % (0.2-1.2); Eosinophils Absolute Auto 0.2 K/mm3 (0-0.3); Eosinophils Percent Auto 2.5 % (0-4.4); Hematocrit 34.1 % (37.0-47.0); Hemoglobin 11.4 g/dL (12.0-15.0); Immature Granulocyte Absolute 0.02 K/mm3 (0.00-0.031); Immature Granulocyte Percent A 0.3 % (0-0.5); Lymphocytes Absolute Auto 1.22 K/mm3 (0.9-3.2); Lymphocytes Percent Auto 16.1 % (18.3-44.2); Mean Corpuscular HGB Conc 33.4 g/dl (32-36); Mean Corpuscular Hemoglobin 29.8 pg (26-34); Mean Corpuscular Volume 89.3 fl (80-100); Mean Platelet Volume 9.5 fl (7.4-10.4); Monocytes Absolute Auto 0.5 K/mm3 (0.1-0.6); Monocytes Percent Auto 6.5 % (2.6-8.5); Neutrophils Absolute Auto 5.6 K/mm3 (1.3-6.7); Neutrophils Percent Auto 73.9 % (45.5-73.1); Platelet Count Result 208 k/mm3 (150-375); Red Blood Count 3.82 M/mm3 (4.2-5.4); Red Cell Distribution Width 13.2 % (11.5-14.5); White Blood Count 7.6 K/mm3 (4.5-10.0)
[2023-08-11 06:22] LABS: Alanine Aminotransferase 18 U/L (6-35); Albumin Level 3.6 g/dL (3.5-5.1); Alkaline Phosphatase 69 U/L (38-126); Anion Gap 6 mmol/L (8-16); Aspartate Amino Transferase 26 U/L (14-36); Bilirubin,Total 1.5 mg/dL (0.2-1.3); Blood Urea Nitrogen 13 mg/dL (7-17); Calcium 8.7 mg/dL (8.4-10.2); Carbon Dioxide 27 mmol/L (22-30); Chloride 103 mmol/L (98-107); Estimated CRCL calculation 71 ml/min; Estimated Glomerular Filt Rate > 60; Glucose 104 mg/dL (65-110); Sodium 136 mmol/L (137-145)
[2023-08-11] MEDS: LACTATED RINGERS 1,000 ML 30 ML IV CONT (07:00)
--- NOTE | 2023-08-11 07:03 | WPDANESEPPF ---
Anes - Initial Pre Proc Eval Procedure: Operation Date: 08/11/23 07:30 Proposed Procedures p Left Hip Pinning - Alex Griggs MD Date/Time: 08/11/23 07:03 Surgeon: Isrrael Bowden MD Pre Op Diagnosis: Syncope/Urinary Tract Infection/L Hip Fracture Patient Data Age: 67 Gender: F Height: 1.68 m Weight: 60 kg Last Vital Signs Temp 36.2 C L 08/11/23 04:20 Pulse 96 08/11/23 04:20 Resp 18 08/11/23 04:20 BP 113/67 08/11/23 04:20 Pulse Ox 94 08/11/23 04:20 O2 Del Method Room Air 08/10/23 20:57 FiO2 21 08/10/23 14:27 Allergies Allergy/AdvReac Type Severity Reaction Status Date / Time No Known Allergies Allergy Verified 08/10/23 11:24 Home Medications Medication Instructions Recorded Confirmed Type solifenacin 5 mg tablet 1 tablet PO QAM 07/10/22 08/10/23 History pantoprazole 40 mg tablet,delayed 40 mg PO QAM 8 weeks #56 tabs 03/20/23 08/10/23 Rx release (Protonix) omega-3s 667 le-tae-hds-fish 1 cap PO DAILY 04/30/23 08/10/23 History oil-vitamin D3 250 unit capsule citalopram 20 mg tablet 20 mg PO QAM #90 tabs 06/19/23 08/10/23 Rx dextroamphetamine-amphetamine ER 20 mg PO QAM #30 caps 08/10/23 08/10/23 Rx 20 mg 24hr capsule,extend release (Adderall XR) Laboratory Tests 08/10/23 08/10/23 08/10/23 13:01 13:02 13:14 WBC 12.0 H K/mm3 (4.5-10.0) RBC 3.99 L M/mm3 (4.2-5.4) Hgb 11.7 L g/dL (12.0-15.0) Hct 36.2 L % (37.0-47.0) MCV 90.7 fl (80-100) MCH 29.3 pg (26-34) MCHC 32.3 g/dl (32-36) RDW 12.9 % (11.5-14.5) Plt Count 253 k/mm3 (150-375) MPV 9.3 fl (7.4-10.4) Immature Gran % (Auto) 0.5 % (0-0.5) Neut % (Auto) 86.5 H % (45.5-73.1) Lymph % (Auto) 8.4 L % (18.3-44.2) [place] % (Auto) 3.9 % (2.6-8.5) Eos % (Auto) 0.3 % (0-4.4) Baso % (Auto) 0.4 % (0.2-1.2) Lymph # (Auto) 1.00 K/mm3 (0.9-3.2) [place] # (Auto) 0.5 K/mm3 (0.1-0.6) Eos # (Auto) 0.0 K/mm3 (0-0.3) Baso # (Auto) 0.1 K/mm3 (0.0-0.1) Abs Immat Gran (auto) 0.06 H K/mm3 (0.00-0.031) Absolute Neuts (auto) 10.3 H K/mm3 (1.3-6.7) Absolute Nucleated RBC 0.0 K/mm3 (0.0-0.012) Nucleated RBC % 0.0 % (0.0-0.2) PT 14.2 Seconds (11.1-14.7) INR 1.1 APTT 26.8 SECONDS (22.3-36.8) Sodium 135 L mmol/L (137-145) Potassium 4.0 mmol/L (3.4-5.0) Chloride 102 mmol/L (98-107) Carbon Dioxide 28 mmol/L (22-30) Anion Gap 5 L mmol/L (8-16) BUN 23 H D mg/dL (7-17) Creatinine 0.70 mg/dL (0.7-1.0) Estim Creat Clear Calc 56 ml/min Estimated GFR > 60 (59 - ) Glucose 107 mg/dL (65-110) Calcium 9.2 mg/dL (8.4-10.2) Magnesium Total Bilirubin 1.2 mg/dL (0.2-1.3) AST 31 U/L (14-36) ALT 21 U/L (6-35) Alkaline Phosphatase 75 U/L (38-126) Total Creatine Kinase 88 U/L (30-135) Troponin I < 0.012 ng/mL (0.000-0.034) Total Protein 7.0 g/dL (6.3-8.2) Albumin 3.9 g/dL (3.5-5.1) Urine Color Yellow (Yellow) Urine Appearance Cloudy H (Clear) Urine pH 7.5 (5.0-9.0) Ur Specific Melvin 1.017 (1.001-1.035) Urine Protein Negative mg/dL (Negative) Urine Glucose (UA) Negative mg/dL (Negative) Urine Ketones Negative mg/dL (Negative) Ur Blood (Man) Non-hemolyzed trace (Negative) Urine Nitrate Positive H (Negative) Urine Bilirubin Negative (Negative) Urine Urobilinogen 1.0 mg/dL (<2.0) Leukocyte Esterase Rfl 2+ H MARKUS/UL (Negative) Urine RBC 0-2 /hpf
[2023-08-11] MEDS: TRANEXAMIC ACID 1,000MG/ISO100 1,000 MG/100 ML BAG 200 MG IVPB (07:05)
--- NOTE | 2023-08-11 07:19 | WPDHPUPDATE1 ---
History and Physical Update Update Date/Time: 08/11/23 07:19 History and Physical has been reviewed, including an updated exam of the patient. There are NO changes in the patient's condition. Risks, benefits, and alternatives have been discussed and questions answered. Patient agrees to proceed with procedure.
[2023-08-11] MEDS: ceFAZolin 2 GM/D5W 50 ML 2 GM/50 ML BAG IVPB ×3 (07:30→23:30)
[2023-08-11 08:14] LABS: Magnesium 2.1 mg/dL (1.6-2.3); Phosphorus 3.4 mg/dL (2.5-4.5)
--- NOTE | 2023-08-11 08:42 | W.PM.PROC2 ---
Procedure Note - Detailed Date of Procedure 08/11/23 Pre-op Diagnosis LEFT FEMORAL NECK Fracture Post-op Diagnosis Same Procedure Performed PERCUTANEOUS PINNING LEFT FEMORAL NECK FRACTURE Surgeon Alex Griggs MD Anesthesia General Description of Procedure THE PATIENT WAS TAKEN TO THE OPERATING ROOM AND PLACED UNDER GENERAL ANESTHESIA. THE PATIENT WAS PLACED ON A FRACTURE TABLE. THE LEFT LOWER EXTREMITY WAS PLACED IN TRACTION AND INTERNAL ROTATION. THE LEFT LOWER EXTREMITY WAS PREPPED AND DRAPED IN THE STERILE FASHION FROM THE KNEE TO THE ILIAC CREST. THE INCISION WAS MADE ON THE LATERAL HIP JUST DISTAL TO THE GREATER TROCHANTER DOWN TO THE BONE. BLEEDERS WERE CAUTERIZED. 3 GUIDE PINS WERE PLACED THROUGH THE FEMORAL NECK AND PASSED THE FRACTURE SITE AND IN TO THE SUBCHONDRAL BONE OF THE FEMORAL HEAD. THREE 7.0 ARTHREX CANNULATED SCREWS WERE PLACED OVER THE GUIDE PINS AND THESE WERE SHOWN TO BE IN GOOD POSITION PER FLUOROSCOPY ON BOTH THE AP AND LATERAL VIEWS. ALL SCREWS HAD EXCELLENT BITES. THE WOUND WAS WASHED WELL. THE DEEP FASCIAL LAYER WAS APPROXIMATED WITH #1 VICRYL SUTURE, THE SUBCUTANEOUS LAYER WITH 2-0 VICRYL AND THE SKIN WAS APPROXIMATED WITH 2-0 QUIL VICRYL AND KEYANA FOR THE SKIN. A STERILE DRESSING WAS PLACED. THE PATIENT WAS EXTUBATED AND SENT TO RECOVERY ROOM Estimated Blood Loss 20 Drains No Complications No immediate complications Condition Stable Disposition PACU
[2023-08-11] MEDS: fentaNYL CITRATE INJ (*CRX) 100 MCG/2 ML VIAL 25 MCG IV PUSH ×2 (09:24→10:12)
--- NOTE | 2023-08-11 10:39 | PC.NURSE ---
Returned from OR at 1030. Report received from Oralia FORD.
[2023-08-11] MEDS: HYDROcodone/acetaminophen (*CRX) 7.5-325 MG TABLET 1 TAB PO ×3 (10:44→20:04)
[2023-08-11] MEDS: SOLIFENACIN 5 MG TABLET PO (10:45)
[2023-08-11] MEDS: CELECOXIB 200 MG CAPSULE PO (10:45)
[2023-08-11] MEDS: ASPIRIN 325 MG ENTERIC TABLET PO ×2 (10:45→20:04)
[2023-08-11] MEDS: SENNA/DOCUSATE SODIUM TABLET 2 TAB PO ×2 (10:46→16:39)
[2023-08-11] MEDS: FAMOTIDINE 20 MG TABLET PO ×2 (10:46→20:04)
[2023-08-11] MEDS: PANTOPRAZOLE 40 MG TABLET PO (10:46)
[2023-08-11] MEDS: CITALOPRAM HYDROBROMIDE 20 MG TABLET PO (10:46)
--- NOTE | 2023-08-11 15:20 | PM.IMPN ---
Progress Note: A&P Assessment and Plan (1) Syncope and collapse: Code(s): R55 - Syncope and collapse Status: Acute (2) Closed fracture of left hip: Qualifiers: Encounter type: initial encounter Qualified Code(s): S72.002A - Fracture of unspecified part of neck of left femur, initial encounter for closed fracture Code(s): S72.002A - Fracture of unspecified part of neck of left femur, initial encounter for closed fracture Status: Acute (3) Urinary tract infection: Code(s): N39.0 - Urinary tract infection, site not specified Status: Acute (4) Overactive bladder: Code(s): N32.81 - Overactive bladder Status: Acute (5) ADD (attention deficit disorder): Qualifiers: Hyperactivity presence: unspecified Qualified Code(s): F98.8 - Other specified behavioral and emotional disorders with onset usually occurring in childhood and adolescence Code(s): F98.8 - Other specified behavioral and emotional disorders with onset usually occurring in childhood and adolescence Status: Acute (6) Hyperlipidemia: Qualifiers: Hyperlipidemia type: other hyperlipidemia Qualified Code(s): E78.49 - Other hyperlipidemia Code(s): E78.5 - Hyperlipidemia, unspecified Status: Acute (7) Anxiety: Code(s): F41.9 - Anxiety disorder, unspecified Status: Acute (8) Postmenopausal: Code(s): Z78.0 - Asymptomatic menopausal state Status: Acute (9) Osteopenia after menopause: Code(s): M85.80 - Other specified disorders of bone density and structure, unspecified site Status: Acute Plan Patient status post PERCUTANEOUS PINNING LEFT FEMORAL NECK FRACTURE ... Postop day 0 Continue postop care as per Orthopedics Continue postop pain meds as needed CT scan of the head any intracranial hemorrhage or infarction 2D echo ordered to evaluate cardiac structure infection as workup for syncopal episode Continue with IV IV Rocephin Monitor urine cultures PT/OT evaluation ordered Postop DVT prophylaxis with ASA 325 mg p.o. b.i.d. as per Orthopedics Oral diazepam as needed for anxiety DC planning when cleared by Orthopedics ? Patient seen and examined at bedside during my morning rounds ? Collaborated with patient's nurse at the bedside in detail and addressed all concerns ? Labs, electrolytes, radiology, investigations and test results reviewed ? Consult/Nursing/Ancilliary notes on the chart reviewed and appreciated ? Spoke with patient/family at the bedside and answered all the questions that they had Repeat labs in a.m. Electrolyte replacement as per protocol. Patient will be monitored very closely on the floor. Further recommendations as per the hospital course. Time Spent With Patient Time with patient: 15 - 25 minutes Subjective Date/time seen: 08/11/23 15:20 Interval history: Patient seen and evaluated in the room with and son at the bedside. She underwent left hip surgery earlier today. Pain is under control on meds. Patient and family had multiple questions which I fully answered. Review of Systems Review of Systems: 14 systems were reviewed with pertinent positives and negatives per HPI. Except as documented in the HPI/progress notes, all other systems were reviewed and are negative. All systems reviewed & are unremarkable except as noted in HPI and below Exam Narrative: PHYSICAL EXAMINATION: Vital signs: Please see the chart General physical exam: Patient lying in bed, pleasant and cooperative with exam, feels tired and fatigued Head/eyes: Atraumatic, EOMI, PERRLA ENT: Moist mucous membranes, nasal passages clear Neck: Supple, full range of motion, trachea midline CVS: S1 + S2, regular rate and rhythm, no murmurs Respiratory: Bilaterally fair air entry in both lung acuña, mild B/L crackles, symmetric chest expansion, no distress Abdomen: Soft, non-tender, bowel sounds +ve, no organomegaly
[2023-08-12] VITALS (13 sets, daily range): BP systolic 100–122; BP diastolic 45–72; PULSE 64–103; RESP 18; TEMP 36.3–36.8; O2SAT 92–97
[2023-08-12] MEDS: HYDROcodone/acetaminophen (*CRX) 7.5-325 MG TABLET 2 TAB PO ×2 (06:01→16:49)
[2023-08-12] MEDS: ceFAZolin 2 GM/D5W 50 ML 2 GM/50 ML BAG IVPB (06:01)
[2023-08-12 06:21] LABS: Basophils Percent Auto 0.5 % (0.2-1.2); Eosinophils Absolute Auto 0.2 K/mm3 (0-0.3); Eosinophils Percent Auto 2.6 % (0-4.4); Hematocrit 34.3 % (37.0-47.0); Immature Granulocyte Absolute 0.04 K/mm3 (0.00-0.031); Immature Granulocyte Percent A 0.5 % (0-0.5); Lymphocytes Absolute Auto 1.21 K/mm3 (0.9-3.2); Lymphocytes Percent Auto 14.8 % (18.3-44.2); Mean Corpuscular HGB Conc 32.1 g/dl (32-36); Mean Corpuscular Hemoglobin 29.3 pg (26-34); Mean Corpuscular Volume 91.2 fl (80-100); Monocytes Absolute Auto 0.6 K/mm3 (0.1-0.6); Monocytes Percent Auto 7.8 % (2.6-8.5); Neutrophils Absolute Auto 6.1 K/mm3 (1.3-6.7); Neutrophils Percent Auto 73.8 % (45.5-73.1); Platelet Count Result 189 k/mm3 (150-375); Red Blood Count 3.76 M/mm3 (4.2-5.4); Red Cell Distribution Width 13.1 % (11.5-14.5); White Blood Count 8.2 K/mm3 (4.5-10.0)
[2023-08-12 06:31] LABS: Alanine Aminotransferase 14 U/L (6-35); Albumin Level 3.4 g/dL (3.5-5.1); Alkaline Phosphatase 66 U/L (38-126); Anion Gap 5 mmol/L (8-16); Aspartate Amino Transferase 26 U/L (14-36); Bilirubin,Total 0.9 mg/dL (0.2-1.3); Blood Urea Nitrogen 12 mg/dL (7-17); Carbon Dioxide 28 mmol/L (22-30); Chloride 104 mmol/L (98-107); Estimated CRCL calculation 62 ml/min; Estimated Glomerular Filt Rate > 60; Glucose 108 mg/dL (65-110); Potassium 3.9 mmol/L (3.4-5.0); Sodium 137 mmol/L (137-145)
--- NOTE | 2023-08-12 08:05 | PCOTNOTE ---
The patient treatment was not able to be completed housekeeping just mopped the floor. Will plan to continue treatment per plan of care.
[2023-08-12] MEDS: SOLIFENACIN 5 MG TABLET PO (08:19)
[2023-08-12] MEDS: PANTOPRAZOLE 40 MG TABLET PO (08:19)
[2023-08-12] MEDS: CELECOXIB 200 MG CAPSULE PO (08:19)
[2023-08-12] MEDS: CITALOPRAM HYDROBROMIDE 20 MG TABLET PO (08:19)
[2023-08-12] MEDS: FAMOTIDINE 20 MG TABLET PO ×2 (08:20→20:16)
[2023-08-12] MEDS: ASPIRIN 325 MG ENTERIC TABLET PO ×2 (08:20→20:16)
[2023-08-12] MEDS: SENNA/DOCUSATE SODIUM TABLET 2 TAB PO ×2 (08:20→16:49)
--- NOTE | 2023-08-12 13:48 | WPDANESPN ---
Anes - Prog Note Post-Op Date/Time: 08/12/23 13:48 Cardiovascular status: normal Respiratory status: normal Airway patency: baseline Mental status: baseline Post-Op hydration status: normal Vital Signs: Last Vital Signs Temp 98.0 F 08/12/23 09:15 Pulse 103 H 08/12/23 12:00 Resp 18 08/12/23 09:15 BP 122/72 08/12/23 09:15 Pulse Ox 97 08/12/23 09:15 O2 Del Method Room Air 08/12/23 08:22 O2 Flow Rate 2 08/11/23 13:32 FiO2 21 08/10/23 14:27 Pain Score (VAS): 0/10 I/O: Intake & Output 08/11/23 08/12/23 08/12/23 23:59 07:59 15:59 Intake Total 290 240 120 Output Total 1150 1000 Balance -860 -760 120 Laboratory Tests 08/12/23 05:52 08/12/23 05:52 08/12/23 05:52 WBC 8.2 RBC 3.76 L Hgb 11.0 L Hct 34.3 L MCV 91.2 MCH 29.3 MCHC 32.1 RDW 13.1 Plt Count 189 MPV 10.0 Immature Gran % (Auto) 0.5 Neut % (Auto) 73.8 H Lymph % (Auto) 14.8 L [place] % (Auto) 7.8 Eos % (Auto) 2.6 Baso % (Auto) 0.5 Lymph # (Auto) 1.21 [place] # (Auto) 0.6 Eos # (Auto) 0.2 Baso # (Auto) 0.0 Abs Immat Gran (auto) 0.04 H Absolute Neuts (auto) 6.1 Absolute Nucleated RBC 0.0 Nucleated RBC % 0.0 Sodium 137 Potassium 3.9 Chloride 104 Carbon Dioxide 28 Anion Gap 5 L BUN 12 Creatinine 0.70 Estim Creat Clear Calc 62 Estimated GFR > 60 Glucose 108 Calcium 9.0 Total Bilirubin 0.9 AST 26 ALT 14 Alkaline Phosphatase 66 Total Protein 6.0 L Albumin 3.4 L Microbiology 08/10/23 13:14 Urine Clean Catch Urine Culture - Final Escherichia Coli Post-procedural complaints: none Patient Feedback: Patient satisfied with anesthetic care.
--- NOTE | 2023-08-12 18:17 | PM.IMPN ---
Progress Note: A&P Assessment and Plan (1) Syncope and collapse: Code(s): R55 - Syncope and collapse Status: Acute (2) Closed fracture of left hip: Qualifiers: Encounter type: initial encounter Qualified Code(s): S72.002A - Fracture of unspecified part of neck of left femur, initial encounter for closed fracture Code(s): S72.002A - Fracture of unspecified part of neck of left femur, initial encounter for closed fracture Status: Acute (3) Urinary tract infection: Code(s): N39.0 - Urinary tract infection, site not specified Status: Acute (4) Overactive bladder: Code(s): N32.81 - Overactive bladder Status: Acute (5) ADD (attention deficit disorder): Qualifiers: Hyperactivity presence: unspecified Qualified Code(s): F98.8 - Other specified behavioral and emotional disorders with onset usually occurring in childhood and adolescence Code(s): F98.8 - Other specified behavioral and emotional disorders with onset usually occurring in childhood and adolescence Status: Acute (6) Hyperlipidemia: Qualifiers: Hyperlipidemia type: other hyperlipidemia Qualified Code(s): E78.49 - Other hyperlipidemia Code(s): E78.5 - Hyperlipidemia, unspecified Status: Acute (7) Anxiety: Code(s): F41.9 - Anxiety disorder, unspecified Status: Acute (8) Postmenopausal: Code(s): Z78.0 - Asymptomatic menopausal state Status: Acute (9) Osteopenia after menopause: Code(s): M85.80 - Other specified disorders of bone density and structure, unspecified site Status: Acute Plan Patient status post PERCUTANEOUS PINNING LEFT FEMORAL NECK FRACTURE ... Postop day 1 Continue postop care as per Orthopedics Continue postop pain meds as needed CT scan of the head done which ruled out any intracranial hemorrhage or infarction 2D echo ordered to evaluate cardiac structure and function as workup for syncopal episode The left ventricular systolic function with estimated EF 65-70 % Urine cultures are growing Gram-negative rods Continue with IV Rocephin Monitor urine cultures for ID and sensitivity Continue PT/OT Postop DVT prophylaxis with ASA 325 mg p.o. b.i.d. as per Orthopedics Oral diazepam as needed for anxiety Patient does not want to go to longterm facility and wants to go home with home care instead DC planning tomorrow when cleared by Orthopedics ? Patient seen and examined at bedside during my morning rounds ? Collaborated with patient's nurse at the bedside in detail and addressed all concerns ? Labs, electrolytes, radiology, investigations and test results reviewed ? Consult/Nursing/Ancilliary notes on the chart reviewed and appreciated ? Spoke with patient/family at the bedside and answered all the questions that they had Repeat labs in a.m. Electrolyte replacement as per protocol. Patient will be monitored very closely on the floor. Further recommendations as per the hospital course. Time Spent With Patient Time with patient: 15 - 25 minutes Subjective Date/time seen: 08/12/23 18:17 Interval history: Patient sitting at chair at bedside. Still feels anxious. Pain is under control on meds. Urine cultures are growing Gram-negative rods. Review of Systems Review of Systems: 14 systems were reviewed with pertinent positives and negatives per HPI. Except as documented in the HPI/progress notes, all other systems were reviewed and are negative. All systems reviewed & are unremarkable except as noted in HPI and below Exam Narrative: PHYSICAL EXAMINATION: Vital signs: Please see the chart General physical exam: Patient lying in bed, pleasant and cooperative with exam, feels tired and fatigued Head/eyes: Atraumatic, EOMI, PERRLA ENT: Moist mucous membranes, nasal passages clear Neck: Supple, full range of motion, trachea midline CVS: S1 + S2, regular rate and rhythm, no murmurs Respira
--- NOTE | 2023-08-12 18:45 | PM.PNORT ---
Progress Note: A&P Assessment and Plan (1) Closed fracture of left hip: Qualifiers: Encounter type: initial encounter Qualified Code(s): S72.002A - Fracture of unspecified part of neck of left femur, initial encounter for closed fracture Code(s): S72.002A - Fracture of unspecified part of neck of left femur, initial encounter for closed fracture Status: Acute Assessment and Plan: POD 1 DOING WELL. OK TO DC HOME FROM ORTHO STANDARD. SHE WILL F/U IN 6 WEEKS. HOME PT AND NURSING. KEYANA OUT AT 2 WEEKS POSTOP. DVT PROPHYLAXIS X 3 WEEKS. Subjective Subjective Date/Time Seen: 08/12/23 18:45 Interval history: POD 1 DOING WELL. SHE HAS MINIMAL PAIN. NO CALF PAIN Exam Extrem: Other: VSS AFEBRILE DRESSING DRY NV INTACT [employer]UC[employer] SIGN, CALF AND THIGH SOFT NON TENDER Objective Data Vital Signs Vital Signs: Vital Signs - 24 hr 08/11/23 20:00 08/11/23 20:07 08/11/23 20:00 Temperature 36.4 C L 36.4 C L Pulse Rate 90 90 98 Respiratory Rate 18 18 Blood Pressure 109/79 109/79 Pulse Oximetry 100 100 Oxygen Delivery 08/11/23 20:00 08/12/23 00:00 08/12/23 00:07 Temperature 36.4 C L 36.4 C L Pulse Rate 87 87 Respiratory Rate 18 18 Blood Pressure 101/54 L 101/54 L Pulse Oximetry 93 93 93 Oxygen Delivery Room Air 08/12/23 00:00 08/12/23 04:07 08/12/23 04:00 Temperature 36.7 C 36.7 C Pulse Rate 82 87 87 Respiratory Rate 18 18 Blood Pressure 100/60 100/60 Pulse Oximetry 95 95 Oxygen Delivery 08/12/23 04:00 08/12/23 08:22 08/12/23 09:15 Temperature 36.7 C Pulse Rate 88 90 96 Respiratory Rate 18 Blood Pressure 122/72 Pulse Oximetry 95 97 Oxygen Delivery Room Air 08/12/23 08:00 08/12/23 08:00 08/12/23 12:00 Temperature Pulse Rate 91 103 H Respiratory Rate Blood Pressure Pulse Oximetry Oxygen Delivery Room Air 08/12/23 14:30 08/12/23 16:00 Temperature 36.3 C L Pulse Rate 96 97 Respiratory Rate 18 Blood Pressure 109/65 Pulse Oximetry 97 Oxygen Delivery Intake/Output Intake/Output: Intake & Output 08/09/23 08/10/23 08/11/23 08/12/23 23:59 23:59 23:59 23:59 Intake Total 1050 660 360 Output Total 2050 1000 Balance 2804 -4924 -789 Meds/Results Medications: Active Medications Generic Name Dose Route Start Last Admin Trade Name Freq PRN Reason Stop Dose Admin Acetaminophen 650 mg 08/11/23 10:22 Acetaminophen 325 Mg Tablet PO Q6H PRN Mild Pain (1-3) or Fever Hydrocodone Bitart/Acetaminophen 1 tab 08/11/23 10:22 08/11/23 20:04 Hydrocodone/Acetaminophen (*Crx) 7.5-325 Mg Tablet PO 1 tab Q3H PRN Administration Pain Rated 4-6 Hydrocodone Bitart/Acetaminophen 2 tab 08/11/23 10:22 08/12/23 16:49 Hydrocodone/Acetaminophen (*Crx) 7.5-325 Mg Tablet PO 2 tab Q6H PRN Administration Pain Rated 7-10 Aspirin 325 mg 08/11/23 10:22 08/12/23 08:20 Aspirin 325 Mg Enteric Tablet PO 325 mg Q12HR ABIMAEL Administration Celecoxib 200 mg 08/11/23 10:22 08/12/23 08:19 Celecoxib 200 Mg Capsule PO 200 mg DAILY@0800 ABIMAEL Administration Citalopram Hydrobromide 20 mg 08/10/23 14:40 08/12/23 08:19 Citalopram Hydrobromide 20 Mg Tablet PO 20 mg QAM ABIMAEL Administration Cyclobenzaprine HCl 10 mg 08/10/23 14:38 08/10/23 22:40 Cyclobenzaprine Hcl 10 Mg Tablet PO 10 mg Q8H PRN Administration Muscle Spasm Diazepam 5 mg 08/11/23 10:22 Diazepam (*Crx) 5 Mg Tablet PO Q8H PRN Muscle Spasm Famotidine 20 mg 08/11/23 10:22 08/12/23 08:20 Famotidine 20 Mg Tablet PO 20 mg Q12HR ABIMAEL Administration Hydroxyzine Pamoate 50 mg 08/11/23 10:22 Hydroxyzine Pamoate 25 Mg Capsule PO Q4H PRN Itching Ceftriaxone Sodium 1 gm in 50 mls @ 100 mls/hr 08/10/23 14:00 08/12/23 13:36 Rocephin 1 Gm/Ns 50 Ml IVPB 100 mls/hr Q24H ABIMAEL Administration Naloxone HCl 0.1 mg 08/11/23 10:22 Naloxone H
[2023-08-13] VITALS (8 sets, daily range): BP systolic 99–117; BP diastolic 57–80; PULSE 63–113; RESP 18; TEMP 36.4–36.9; O2SAT 95–98
[2023-08-13] MEDS: HYDROcodone/acetaminophen (*CRX) 7.5-325 MG TABLET 2 TAB PO (05:53)
[2023-08-13 06:22] LABS: Basophils Absolute Auto 0.1 K/mm3 (0.0-0.1); Basophils Percent Auto 0.8 % (0.2-1.2); Eosinophils Absolute Auto 0.3 K/mm3 (0-0.3); Eosinophils Percent Auto 4.7 % (0-4.4); Hematocrit 33.1 % (37.0-47.0); Immature Granulocyte Absolute 0.02 K/mm3 (0.00-0.031); Immature Granulocyte Percent A 0.3 % (0-0.5); Lymphocytes Absolute Auto 1.46 K/mm3 (0.9-3.2); Lymphocytes Percent Auto 22.9 % (18.3-44.2); Mean Corpuscular HGB Conc 33.2 g/dl (32-36); Mean Corpuscular Volume 90.2 fl (80-100); Mean Platelet Volume 9.9 fl (7.4-10.4); Monocytes Absolute Auto 0.5 K/mm3 (0.1-0.6); Neutrophils Percent Auto 63.3 % (45.5-73.1); Platelet Count Result 193 k/mm3 (150-375); Red Blood Count 3.67 M/mm3 (4.2-5.4); Red Cell Distribution Width 13.2 % (11.5-14.5); White Blood Count 6.4 K/mm3 (4.5-10.0)
[2023-08-13 06:39] LABS: Alanine Aminotransferase 10 U/L (6-35); Albumin Level 3.2 g/dL (3.5-5.1); Alkaline Phosphatase 58 U/L (38-126); Anion Gap 3 mmol/L (8-16); Aspartate Amino Transferase 22 U/L (14-36); Bilirubin,Total 0.7 mg/dL (0.2-1.3); Blood Urea Nitrogen 14 mg/dL (7-17); Calcium 8.6 mg/dL (8.4-10.2); Carbon Dioxide 30 mmol/L (22-30); Chloride 103 mmol/L (98-107); Estimated CRCL calculation 62 ml/min; Estimated Glomerular Filt Rate > 60; Glucose 96 mg/dL (65-110); Potassium 4.2 mmol/L (3.4-5.0); Sodium 136 mmol/L (137-145)
[2023-08-13] MEDS: SENNA/DOCUSATE SODIUM TABLET 2 TAB PO (08:34)
[2023-08-13] MEDS: CELECOXIB 200 MG CAPSULE PO (08:34)
[2023-08-13] MEDS: PANTOPRAZOLE 40 MG TABLET PO (08:34)
[2023-08-13] MEDS: ASPIRIN 325 MG ENTERIC TABLET PO (08:34)
[2023-08-13] MEDS: SOLIFENACIN 5 MG TABLET PO (08:35)
[2023-08-13] MEDS: FAMOTIDINE 20 MG TABLET PO (08:35)
[2023-08-13] MEDS: CITALOPRAM HYDROBROMIDE 20 MG TABLET PO (08:35)
--- NOTE | 2023-08-13 09:30 | PM.PNORT ---
Progress Note: A&P Assessment and Plan (1) Closed fracture of left hip: Qualifiers: Encounter type: initial encounter Qualified Code(s): S72.002A - Fracture of unspecified part of neck of left femur, initial encounter for closed fracture Code(s): S72.002A - Fracture of unspecified part of neck of left femur, initial encounter for closed fracture Status: Acute Assessment and Plan: POD #2 : PERCUTANEOUS PINNING LEFT FEMORAL NECK FRACTURE Continue PT/OT. TTWB LLE. Walker. HIGH FALL RISK. Continue pain control. Ice Hip. Protect skin. DVT prophylaxis with Aspirin. SCDs. Incentive Spirometry Use reviewed. Monitor Dressing. Change prior to discharge. Bowel Regimen. Dispo: Home with Home Health pending progress with PT/OT Plan Reviewed history, exam, radiographs and current labs with attending MD and covering surgeon, Dr. Griggs, who agrees with current plan as indicated above. No further recommendations from Dr. Griggs at this time. Subjective Subjective Date/Time Seen: 08/13/23 09:30 Post Op day: 2 Interval history: POD #2: PERCUTANEOUS PINNING LEFT FEMORAL NECK FRACTURE Patient doing well. Pain well controlled. Up in chair. Hopeful for d/c home today. No new concerns. Review of Systems Constitutional: Constitutional: Denies chills, Denies fatigue, Denies fever(s), Denies night sweats and Denies weakness Cardiovascular: Cardiovascular: Denies chest pain, Denies lightheadedness, Denies palpitations and Denies dyspnea Respiratory: Respiratory: Denies cough, Denies dyspnea and Denies wheezing Gastrointestinal: Gastrointestinal: Denies abdominal pain, Denies diarrhea, Denies nausea and Denies vomiting Musculoskeletal: Musculoskeletal: Reports arthralgias (left hip ), Reports joint swelling (left hip ) and Denies numbness Neurologic: Denies numbness and Denies weakness Endocrine: Endocrine: Denies fatigue and Denies palpitations Allergic/Immunologic: Allergic/Immunologic: Denies wheezing Exam Const: General: comfortable and no acute distress Orientation/consciousness: patient oriented x3 Limitations: no limitations Resp: Effort & Inspection: normal respiratory effort Cardio: Rate: regular rate Rhythm: regular rhythm GI: Inspection: non-distended Skin: General skin exam: normal color and wounds noted (incision left hip C/D/I ) Wounds: wounds noted (incision left hip C/D/I ) Neuro: General: patient oriented x3 Extrem: Left lower extremity: hip/thigh Details: tenderness Location: of the hip Location: laterally and anteriorly, swelling (thigh soft ) Location: of the hip (lateral. ), abnormal ROM (limitations with internal/external rotation and flexion/extension due to recent surgical intervention ) and other (incision lateral hip c/d/i. ), knee Details: normal to inspection and normal ROM; no tenderness and no swelling, lower leg (Negative Axel's Sign ) Details: no edema, ankle (+ankle dorsiflexion/plantarflexion ) Details: normal to inspection, no edema and normal ROM; no tenderness, no swelling and no warmth and foot Details: normal capillary refill, toes with normal ROM, vascular exam Details: dorsalis pedis pulse present and motor-sensory exam light-touch normal in all toes; no tenderness, no ecchymosis and no crepitus Psych: Mental Status: mental status grossly normal Affect: normal affect Objective Data Vital Signs Vital Signs: Vital Signs - 24 hr 08/12/23 12:00 08/12/23 14:30 08/12/23 16:00 Temperature 36.3 C L Pulse Rate 103 H 96 97 Respiratory Rate 18 Blood Pressure 109/65 Pulse Oximetry 97 Oxygen Delivery Fraction of Inspired Oxygen 08/12/23 19:35 08/12/23 20:10 08/12/23 20:00 Temperature 36.8 C Pulse Rate 64 64 94 Respiratory Rate 18 18 Blood Pressure 116/45 L Pulse Oximetry 92 92 Oxygen Delivery Room Air Fraction of Inspired Oxygen 21 08/13/23 00:00 08/13/23 00:04 08/13/23 04:00 Temperature 36.4 C L 36.7 C Puls
[2023-08-13] MEDS: HYDROcodone/acetaminophen (*CRX) 7.5-325 MG TABLET 1 TAB PO (14:55)
--- NOTE | 2023-08-13 15:10 | PM.DS ---
DS: Admitting Diagnosis Discharge Date 08/13/2023: Admitting Diagnosis Closed fracture of left hip UTI Syncope and collapse DS: Discharge Diagnosis Discharge Diagnosis (1) Syncope and collapse: Code(s): R55 - Syncope and collapse Status: Acute (2) Closed fracture of left hip: Qualifiers: Encounter type: initial encounter Qualified Code(s): S72.002A - Fracture of unspecified part of neck of left femur, initial encounter for closed fracture Code(s): S72.002A - Fracture of unspecified part of neck of left femur, initial encounter for closed fracture Status: Acute (3) Urinary tract infection: Code(s): N39.0 - Urinary tract infection, site not specified Status: Acute (4) Overactive bladder: Code(s): N32.81 - Overactive bladder Status: Acute (5) ADD (attention deficit disorder): Qualifiers: Hyperactivity presence: unspecified Qualified Code(s): F98.8 - Other specified behavioral and emotional disorders with onset usually occurring in childhood and adolescence Code(s): F98.8 - Other specified behavioral and emotional disorders with onset usually occurring in childhood and adolescence Status: Acute (6) Hyperlipidemia: Qualifiers: Hyperlipidemia type: other hyperlipidemia Qualified Code(s): E78.49 - Other hyperlipidemia Code(s): E78.5 - Hyperlipidemia, unspecified Status: Acute (7) Urinary urgency: Code(s): R39.15 - Urgency of urination Status: Acute (8) Anxiety: Code(s): F41.9 - Anxiety disorder, unspecified Status: Acute (9) Osteopenia after menopause: Code(s): M85.80 - Other specified disorders of bone density and structure, unspecified site Status: Acute (10) Postmenopausal: Code(s): Z78.0 - Asymptomatic menopausal state Status: Acute DS: Summary Hospital Course Reason for hospitalization: 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 13:11 Chief Complaint: Left hip pain, fracture, syncope Narrative: This is a 67-year-old female patient history of ADHD depression osteopenia who is admitted to the hospital for left hip fracture sustained after a syncopal episode while patient is participating in yoga.? Patient describes standing on 1 leg and leaning forward her arms outstretched when the next thing she knew she was lying on the floor with left hip pain.? She does not recall feeling bad before the event.? Patient reports that she has had numerous fractures and surgeries related to bones and joints.? Patient reports that this yoga is normal for her and she does not know why she had a problem today.? She is on Adderall for ADHD and noted to have low weight and poor appetite.? She ate yogurt for dinner last night and yogurt again for breakfast this morning.? Patient denies any chest pain shortness a breath nausea vomiting abdominal pain fever chills cough or other concerning symptoms.? ER evaluation is concerning for urinary tract infection.? Urine culture in process and patient treated with Rocephin.? White blood cell count mildly elevated at 12.? Orthopedics was consulted and will see patient with likely operative repair tomorrow. HOSPITAL COURSE ... Date of Admission - 08/12/2023: Assessment and Plan (1) Syncope and collapse: ?Code(s): R55 - Syncope and collapse ?Status:?Acute (2) Closed fracture of left hip: ?Qualifiers: ?Encounter type:?initial encounter? Qualified Code(s):?S72.002A - Fracture of unspecified part of neck of left femur, initial encounter for closed fracture ?Code(s): S72.002A - Fracture of unspecified part of neck of left femur, initial encounter for closed fracture ?Status:?Acute (3) Urinary tract infection: ?Code(s): N39.0 - Urinary tract infection, site not specified ?Status:?Acute (4)
== END 2023-08-13 16:00 | disposition home health service (06) | DRG 481 ==
LOC: ANHED 14:04 → ANH3MEDSUR 14:06 → ANH2MED 17:46
PROVIDERS: Nurse Practitioner; Orthopaedic Surgery; Admitting Provider Internal Medicine; Emergency Provider Emergency Medicine; PCP Family Medicine; Visit Provider Family Medicine
PROC: 0QS734Z Reposition Left Upper Femur with Internal Fixation Device, Percutaneous Approach (ICD-10-PCS; principal; 2023-08-11 07:30)
DX: S72.032A Displaced midcervical fracture of left femur, initial encounter for closed fracture (principal); N39.0 Urinary tract infection, site not specified; B96.20 Unspecified Escherichia coli [E. coli] as the cause of diseases classified elsewhere; B39.9 Histoplasmosis, unspecified; E78.5 Hyperlipidemia, unspecified; N32.81 Overactive bladder; M41.9 Scoliosis, unspecified; M85.80 Other specified disorders of bone density and structure, unspecified site; R55 Syncope and collapse; F41.9 Anxiety disorder, unspecified; F98.8 Other specified behavioral and emotional disorders with onset usually occurring in childhood and adolescence; W18.30XA Fall on same level, unspecified, initial encounter
CPT/HCPCS: 36415; 70450; 71045; 72125; 73080; 73502; 80053; 80307; 81001; 82550; 83735; 84100; 84484; 85025; 85610; 85730; 86850; 86900; 86901; 87086; 87186; 93005; 93306; 96374; 96375; 97110; 97161; 97165; 97530; 97535; 99199; 99285; A9270; C1713; C9113; J0690; J0696; J1100; J2250; J2270; J2371; J2405; J2704; J3010; J7030; J7120

== ENCOUNTER 2024-03-31 13:30 | Outpatient (CLI) | payer MEDICARE, SELFPAY ==
--- NOTE | ~2024-03-31 | DEXA_ITS ---
Bone Density Report Name: JOSE J THOMAS Age: 68 Sex: Female Ethnicity: White Date of : 1955 Indication: postmenopausal; screening for osteoporosis; height loss; history of glucocorticoids; prior fracture; Referring Provider: JUAN ALBERTO BOYCE Study: Bone densitometry was performed. Exam Date: March 31, 2024 Accession number: [id number] Bone Density: Region BMD T-score Z-score Classification AP Spine(L1-L4) 1.036 -0.1 2.0 Normal World Health Organization criteria for BMD impression classify patients as: Normal (T-score at or above -1.0), Osteopenia (T-score between -1.0 and -2.5), or Osteoporosis (T-score at or below -2.5). Clinical Information Provided by Patient: Have had a previous hip or vertebral fracture Has had a low trauma fracture Has taken Glucocorticoids Has used the following medications: Vitamin D, Calcium Patient maximum height was 67 Menopause Age: 46 Drinks caffeinated beverages Onset of menses at age 13 Number of children 1 Impression: The patient has normal bone mass. The patient has risk factors, including: previous fracture, history of glucocorticoid therapy. Discussion: INCREASED RISK OF FRACTURE DUE TO HISTORY OF FRACTURE. The patient's previous fracture puts the patient at high risk of a future fracture. In untreated patients, the risk of osteoporotic fracture increases approximately two-fold for each 1.0 SD decrease in T-score. Low bone density is not the only risk factor for fracture; also consider factors such as patient's age, frailty or poor health, risk of falling, risk of injury, previous osteoporotic fracture, family history of osteoporosis, cigarette smoking, low body weight, etc. Not everyone with a low trauma fracture has osteoporosis; osteomalacia and other metabolic bone disorders should also be considered. Patients who have osteoporosis should be evaluated for specific diseases and conditions (secondary causes) that may cause or contribute to bone loss and fracture risk. National Osteoporosis Foundation (NOF) recommends pharmacologic intervention for patients with a prior hip or vertebral fracture regardless of BMD T-score. The patient should follow a healthful lifestyle (good nutrition with adequate calcium and vitamin D, and appropriate weight-bearing exercise). Follow-Up: Consider a repeat BMD and Vertebral Fracture Assessment (VFA) exam in 2 years or sooner if medically necessary, to reassess this patient's status. Reported by: ARMIDA on 03/31/2024 1:58:00 PM. Reviewed, dictated and finalized at location [facility]
== END 2024-03-31 13:31 | disposition home or self-care (01) ==
LOC: ANHIMG 13:32
PROVIDERS: PCP Nurse Practitioner; Visit Provider Nurse Practitioner
DX: Z78.0 Asymptomatic menopausal state (principal)
CPT/HCPCS: 77080

== ENCOUNTER 2024-06-17 11:00 | Outpatient (CLI) | payer MEDICARE, SELFPAY | END 2024-06-17 11:01 | disposition home or self-care (01) | PROVIDERS: PCP Family Medicine; Visit Provider Family Medicine | DX: H90.3 Sensorineural hearing loss, bilateral (principal) | CPT/HCPCS: 92557; 92567 ==

== ENCOUNTER 2025-02-07 15:11 | Outpatient (CLI) | payer MEDICARE, SELFPAY ==
--- NOTE | ~2025-02-07 | MM_ITS ---
EXAMINATION: MM screening [facility] [place] HISTORY: Screening TECHNIQUE: Craniocaudal and mediolateral oblique 3-D tomosynthesis images were obtained and synthetic 2-D images were generated. CAD analysis was submitted and interpreted. COMPARISON: Comparison to multiple prior studies sequentially, with oldest reviewed study dated 08/24. BREAST PARENCHYMAL COMPOSITION: Not dense: There are scattered areas of fibroglandular density. FINDINGS: There is no evidence of suspicious mass, calcification, or architectural distortion to sugg est malignancy in either breast. There has been no suspicious interval change. IMPRESSION: 1. No mammographic evidence of malignancy. 2. Recommend routine screening mammography in one year. BI-RADS Category 1: Negative Reviewed, dictated and finalized at location B.
--- OUTSIDE RECORDS SUMMARY | 2025-02-07 15:16 | XMS_ITS | Patient Health Record ---
Author Organization [facility] Address [address] [place] [address] Care Team Providers Care Field Agent Name Role Phone David Portillo Primary Care Provider Reason For Referral No Information Immunizations Vaccine Route Administration Date Status Comme nts COVID-19 Moderna 1ST IM Intramuscular 10/04/2020 Administered EUA date 0. Screening reviewed and consent signed. Patient tolerated well. COVID-19 Moderna 2nd IM Intramuscular 11/01/2020 Administered Plan Of Treatment No Information Insurance Providers Payer Name Payer Address Payer Phone Subscriber Number Group Number Insured Name Patient Relationship to Insured Coverage Start Date Coverage End Date [employer] [address] [place] [phone] [id number] Judith Quinn Self - patient is the insured 2020
--- OUTSIDE RECORDS SUMMARY | 2025-02-07 15:16 | XMS_ITS | Encounter Summary ---
Author Organization [facility] Address [address] [place] [address] Care Team Providers Care Turntable Engineer Name Role Phone Otto Sherman Primary Care Provider [phone] Sandy Brewer MD Primary Care Provider [phone] Norm Lutz MD Primary Care Provider [phone] Encounter Details Date Type Department Care Team (Late st Contact Info) Description 07/18/2019 Documentation [facility] Case Management [id number] [place] [address] Louise Silva RN Social History Tobacco Use Types Packs/Day Years Used Date Smoking Tobacco: Never Smokeless Tobacco: Never Alcohol Use Standard Drinks/Week Comments Yes 1 (1 standard drink = 0.6 oz pur e alcohol) social Comments No Sex and Gender Information Value Date Recorded Sex Assigned at Not on file Legal Sex Female 1:40 PM PROGRAM COORDINATOR Gender Identity Female 06/27/2022 12:43 AM PROGRAM COORDINATOR Sexual Orientation Straight 06/27/2022 12 :43 AM PROGRAM COORDINATOR documented as of this encounter Plan of Treatment Not on file documented as of this encounter Visit Diagnoses Not on filedocumented in this encounter Additional Health Concerns Infection Onset Date Last Indicated Resolved Time COVID19 08/29/2020 08/29/2020 2020 3:07 AM PROGRAM COORDINATOR Exposure, COVID-19 Comment:Added automatically based on COVID19 lab answers indicating exposure risk 08/29/2020 08/29/2020 08/29/2020 7:[address] COVID: Suspected 08/29/2020 08/29/2020 08/29/2020 7:28 PM PROGRAM COORDINATOR documented as of this encounter Care Teams Turntable Engineer Relationship Specialty Start Date End Date Otto Sherman DO PCP - General Internal Medicine 02/16/19 08/07/22 Sandy Brewer MD PCP - General Internal Medicine 08/08/22 07/16/23 Norm Lutz MD PCP - General Family Practice 07/17/23 documented as of this encounter
--- OUTSIDE RECORDS SUMMARY | 2025-02-07 15:16 | XMS_ITS | Clinical Summary ---
Author Organization [facility] Medical Office Building B Address [address] [place] [address] Care Team Providers Care Jacquard Card Lacer Name Role Phone Norm Lutz MD Primary Care Provider [phone] Allergies No known active allergies Medications dextroamphetamine- amphetamine XR (ADDERALL XR) 20 mg 24 hr capsuleIndications :Attention-Deficit Hyperactivity Disorder Take 1 capsule (20 mg total) by mouth every morning 0 9 Active citalopram (CeleXA) 20 mg tabletIndications: Anxiety with Depression Take 1 tablet (20 mg total) by mouth every morning Active solifenacin (VESIcare) 5 mg tablet 2 Active Active Problems Problem Noted Date Diagnosed Date Histoplasmosis 12/23/2021 Assessment & Plan (12/23/2021 4:11 PM CDT): Pt with incidentally found 11mm lung nodule presenting with bx-proven histo from OSH but negative urine ag, serum ab 1:1, and negative histo galactomannan. Pt is immunocompetent and remains completely asymptomatic at diagnosis and at present. Pt was referred from OSH pulmonology for discussion of risks vs benefits of treatment for likely histoplasmoma. After discussion, pt feels she would like to opt for watchful waiting and repeat imaging. Counseled on notifying clinic if she were to develop symptoms in the meantime. - repeat imaging in 5 months - RTC 6 months Nausea 08/30/2020 Assessment & Plan (08/30/2020 2:36 PM TRAVELING CRANE OPERATOR): - Zofran PRN Pneumonia due to COVID-19 virus 08/29/2020 Assessment & Plan (08/30/2020 2:36 PM TRAVELING CRANE OPERATOR): - COVID positive 08/24, CXR with bibasilar infiltrates consistent with viral pneumonia, however, no significant respiratory symptoms and on room air at this time. - CRP 12.5, hs-trop negative, Ddimer 503. - Admitted for monitoring due to weakness, dizziness, poor PO intake - stable at this time - given high-risk age for progression will initiated Remdesivir while inpatient - no plasma or dexamethasone at this time - Nausea/vomiting prns - NS 75mL/hour until taking good PO - Telemetry with continuous pulse ox Hyponatremia 08/29/2020 Assessment & Plan (08/31/2020 1:51 PM TRAVELING CRANE OPERATOR): - Na 131 --> 133, likely due to poor PO intake. - Continue to trend Anxiety and depression 08/29/2020 Assessment & Plan (08/30/2020 2:36 PM TRAVELING CRANE OPERATOR): - No acute issues - Continue home Celexa 20mg daily ADHD 08/29/2020 Primary osteoarthritis of right hip 04/27/2019 Overview (04/27/2019): Added automatically from request for surgery [id number] Resolved Problems Problem Noted Date Diagnosed Date Resolved Date Elevated bilirubin 08/29/2020 Assessment & Plan (08/30/2020 2:36 PM TRAVELING CRANE OPERATOR): - TB 1.3 on admission labs, likely related to poor PO intake/dehydration. - Repeat TB and DB after fluids Rash 04/05/2019 08/29/2020 Posterior neck pain 04/05/2019 08/29/19 21 Pneumonia 04/05/2019 08/29/2020 Fever 04/05/2019 08/29/2020 Fracture of elbow 01/01/2015 08/29/2020 Dislocation, elbow 01/01/2015 Fracture of distal end of radius 10/09/2014 08/29/2020 Fracture of head of radius 08/09/2014 0 08/29/2020 Immunizations Immunization Administration Dates Next Due Influenza, Trivalent, IM (MDV) 04/23/2015,2013 Influenza, Trivalent, Preservative Free, Intramu scular 05/25/2017,05/26/2016 Influenza, Unspecified 05/30/2014 Tdap 02/05/2016 Surgical History Surgery Date Site/Laterality Comments ANKLE SURGERY 07/13/2000 - 07/12/2001 WRIST SURGERY Right ELBOW SURGERY Right CATARACT EXTRACTION FRACTURE SURGERY JOINT REPLACEMENT LASIK TUBAL LIGATION Medical History Medical History Date Comments Anxiety Depression Arthritis Family History Medical History Relation Name Comments Hearing loss Brother Ruben Ferrera Arthritis Father Tian Ferrera Cancer Father Tian Huertasz Hearing loss Father Tian Huertasz Heart disease Father Tian Huertasz Hypertension Father Tian Salcedoquez Kidney disease Father Tian Salcedoquez Other Father Tian Salcedoquez Arthritis Mother Teresa Ferrera Cancer Mother Teresa Ferrera Heart disease Mother Teresa Ferrera Anesthesia problems Neg Hx Relation Name Status Comments Brother Ruben Ferrera Father Tian Salcedoquez Mother Teresa Ferrera Social History Tobacco Use Types Packs/Day Years Used Date Smoking Tobacco: Never Smokeless Tobacco: Never Tobacco Cessation:Counseling Given: Not Answered Alcohol Use Standard Drinks/Week Comments Yes 1 (1 standard drink = 0.6 oz pur e alcohol) social Comments No Sex and Gender Information Value Date Recorded Sex Assigned at Not on file Legal Sex Female 1:40 PM TRAVELING CRANE OPERATOR Gender Identity Female 06/27/2022 12:43 AM TRAVELING CRANE OPERATOR Sexual Orientation Straight 06/27/2022 12 :43 AM TRAVELING CRANE OPERATOR Obstetrics History Last Filed Vital Signs Vital Sign Reading Time Taken Comments Blood Pressure 127/80 07/25/2024 12:58 PM TRAVELING CRANE OPERATOR Pulse 77 07/25/2024 12:58 PM TRAVELING CRANE OPERATOR Temperature 36.6 C (97.9 F) 07/25/2024 12:58 PM TRAVELING CRANE OPERATOR Respiratory Rate 18 07/20/2023 2:40 PM TRAVELING CRANE OPERATOR Oxygen Saturation 99% 07/25/2024 12: 58 PM TRAVELING CRANE OPERATOR Inhaled Oxygen Concentration - - Weight 57.6 kg (126 lb 14.4 oz) 025 12:58 PM TRAVELING CRANE OPERATOR Height 167.6 cm (5' 5.98) 07/25/2024 1 2:58 PM TRAVELING CRANE OPERATOR Body Mass Index 20.49 07/25/2024 12:58 PM TRAVELING CRANE OPERATOR Plan of Treatment Health Maintenance Due Date Last Done Comments Breast Cancer Screening-Mammogram 1954 Colon Cancer Screening-Colonoscopy 1955 Depression Screening 1955 Hepatitis C Screening 1954 Hepatitis B Screening 1972 Pneumococcal vaccine 65+ (1 of 1 - PCV) 2004 Zoster Vaccine (1 of 2) 2004 Osteoporosis Screening-Bone Density Scan 10/25/2017 10/26/2015 Well Visit 65+ 09/16/2019 Fall Risk Assessment 09/01/2021 09/01/2020 Covid-19 Vaccine (3 - 2023-2 5 season) 2024 11/01/2020, 10/04/2020 Influenza Vaccine (#1) 2025 7, 05/26/2016, 04/23/2015, Additional history exists DTaP/Tdap/Td Vaccine (2 - Td or Tdap) 02/04/2026 02/05/2016 Medical Devices Implanted Type Area [employer]rycook Device Identifier Shelf Expiration Date Model / Serial / Lot [employer] [id number] Procotyl Prime 54mm Shell Acetabular Sterile - Sn/A - [id number] Implanted:Qty: 1 on 07/15/2019 by Oz Loyd MD at [facility] Other - see comments Right: Hip [employer] [id number] 05/13/2027 [id number] / N/A / [id number] [employer] [id number] Procotyl Prime 36mm Liner Acetabular Sterile Latex Free - Sn/A - [id number] Implanted:Qty: 1 on 07/15/2019 by Oz Loyd MD at [facility] Other - see comments Right: Hip [employer] [id number] 05/13/2027 [id number] / N/A / [id number] Stem Profemur Tl2 Sz 8 Hip Standard Offset - Sn/A - [id number] Implanted:Qty: 1 on 07/15/2019 by Oz Loyd MD at [facility] Other - see comments Right: Hip [employer] [id number] 05/13/2027 [id number] / N/A / [id number] [employer] [id number] Procotyl 36mm 12/14 Medium Head Femoral Biolox Delta Sterile - Sn/A - [id number] Implanted:Qty: 1 on 07/15/2019 by Oz Loyd MD at [facility] Other - see comments Right: Hip [employer] [id number] 05/13/2027 [id number] / N/A / [id number] [employer] [id number] Dynasty Lineage 6.5mm 35mm Acetabular Screw Bone Biofoam - Sn/A - [id number] Implanted:Qty: 1 on 07/15/2019 by Oz Loyd MD at [facility] Screw Right: Hip [employer] [id number] 12/11/2024 [id number] / N/A / [id number] [employer] [id number] Dynasty Lineage 6.5mm 15mm Acetabular Screw Bone Biofoam - Sn/A - [id number] Implanted:Qty: 1 on 07/15/2019 by Oz Loyd MD at [facility] Screw Right: Hip [employer] [id number] 12/11/2025 [id number] / N/A / [id number] Hardware Right: Elbow Procedures Procedure Name Priority Date/Time Associated Diagnosis Comments DEXA AXIAL SKELETON BONE DENSITY 1 OR MORE SITES Routine 10/26/2015 10:13 AM CDT from Last 3 Months or Most Recently Relevant to Health Maintenance Results * Dexa Axial Skeleton Bone Density 1 or 2 Site (10/26/2015 10:13 AM CDT) Anatomical Region Laterality Modality Body N/A Radiographic Roseanna ging 10/26/2015 10:1 3 AM CDT Narrative 10/26/2015 5:17 PM CDT SERA BARDALES M.D. CASH COTTER M.D. FINAL REPORT The radiology attending physician has personally reviewed this study, and has reviewed and/or edited this written report and agrees with it. EXAMINATION: BONE DENSITOMETRY OF THE SPINE AND HIP DATE OF STUDY: 10/26/2015 HISTORY: 60-year-old postmenopausal woman with early menopause. She is being treated with vitamin D. Evaluate bone mineral density. Additional risk factors for fracture: previous fracture, increased risk of secondary osteoporosis. FINDINGS (SPINE): The bone mineral density of L1-L4 was assessed by dual-energy x-ray absorptiometry. The average bone mineral density within this region is 1.035 gm/sq-cm. This is 1.4 standard deviations above the mean of the average bone mineral density for age- and gender-matched subjects (the Z-score). It is 0.1 standard deviations below the mean peak bone mineral density in young adults (the T-score). FINDINGS (FEMORAL NECK): The bone mineral density of the left femoral neck was assessed by dual-energy x-ray absorptiometry. The average bone mineral density within the femoral neck region is 0.656 gm/sq-cm. This is 0.4 standard deviations below the mean of the average bone mineral density for age- and gender-matched subjects (the Z-score). It is 1.7 standard deviations below the mean peak bone mineral density in young adults (the T-score). FINDINGS (TOTAL HIP): The bone mineral density of the left hip was assessed by dual-energy x-ray absorptiometry. The average bone mineral density within the total hip region is 0.839 gm/sq-cm. This is 0.2 standard deviations above the mean of the average bone mineral density for age- and gender-matched subjects (the Z-score). It is 0.8 standard deviations below the mean peak bone mineral density in young adults (the T-score). SUMMARY OF CURRENT RESULTS: Region BMD T-score Z-score AP Spine (L1-L4) 1.035 -0.1 1.4 Femoral Neck (Left) 0.656 -1.7 -0.4 Total Hip (Left) 0.839 -0.8 0.2 IMPRESSION: - 1. The bone mineral density of the lumbar spine is normal. 2. The bone mineral density of the left femoral neck is mildly decreased. 3. The bone mineral density of the left total hip is normal. 4. Overall, the above findings are diagnostic of low bone mass (osteopenia) by WHO criteria. 5. Based on the FRAX fracture risk model, the 10-year probability for major osteoporotic fracture is 13% and that for hip fracture is 1.6%. This 10-year fracture risk estimate was calculated using the risk factors noted in the history above, along with the femoral neck bone density. FRAX is intended to help guide treatment decisions in men over age 50 and postmenopausal women with low bone mass (osteopenia). The National Osteoporosis Foundation (NOF) recommends that FDA-approved medical therapies be considered in postmenopausal women and men age 50 years and older with low bone mass whose 10-year fracture probability by FRAX is >= 20% for major osteoporotic fracture or >= 3% for hip fracture. However, all treatment decisions require clinical judgment and consideration of individual patient factors, including patient preferences, comorbidities, previous drug use, risk factors not captured in the FRAX model (e.g., frailty, falls, vitamin D deficiency, increased bone turnover, interval significant decline in bone density) and possible under- or overestimation of fracture risk by FRAX. General comments regarding interpretation of bone density measurements: a) In children, premenopausal woman and males under age 50 not at increased risk for fractures only Z-scores, not T-scores are used to indicate risk. A Z-score above -2.0 is defined as within the expected range for age and Z-score at or less than -2.0 is below the expected range for age. A Z-score below the expected range for age in a patient with recent fractures and/or chronic corticosteroid treatment is consistent with a diagnosis of osteoporosis. b) In post menopausal women and males over 50, comparison of the measured bone mineral density with the average value in young normal subjects (the T-score) has been found to be useful in assessing fracture risk. Fracture risk approximately doubles for each 1.0 standard deviation (SD) in individual's hip or spine bone mineral density is below the average value of young normal subjects. The World Health Organization (WHO) has defined T-scores of -1.0 to -2.5 as diagnostic of low bone mass (OSTEOPENIA), and T-scores of -2.5 or lower to be diagnostic of OSTEOPOROSIS, based on the site of lowest bone density. Note that there will be a change in reporting format and reference databases as patients move from the younger population (group a) to the older population (group b) The National Osteoporosis Foundation (www.nof.org) recommends adequate intake of calcium and vitamin D and regular weight-bearing exercise in all patients. They recommend pharmacologic treatment in postmenopausal women and men age 50 and older presenting with any of the followin) Osteoporosis, after appropriate evaluation to exclude secondary causes. 2) A hip or vertebral (clinical or radiographic) fracture, regardless of the bone density. 3) Low bone mass (Osteopenia) and one or more of: other prior fractures, secondary causes associated with high risk of fracture (such as glucocorticoid use or total immobilization), or computed high risk of fracture (10-yr probability of hip fracture >= 3% or a 10-yr probability of any major osteoporosis-related fracture >= 20% based on the [place].-adapted WHO algorithm), available at http://www.shef.ac.uk/FRAX). Requested By: Dictated By: CASH COTTER M.D. on Oct 26 2015 12:04P This document has been electronically signed by: SERA BARDALES M.D. on Oct 26 2015 5:17P [id number] Procedure Note Provider, MD Manuela - 11/02/2016 SERA BARDALES M.D. CASH COTTER M.D. FINAL REPORT The radiology attending physician has personally reviewed this study, and has reviewed and/or edited this written report and agrees with it. EXAMINATION: BONE DENSITOMETRY OF THE SPINE AND HIP DATE OF STUDY: 10/26/2015 HISTORY: 60-year-old postmenopausal woman with early menopause. She is being treated with vitamin D. Evaluate bone mineral density. Additional risk factors for fracture: previous fracture, increased risk of secondary osteoporosis. FINDINGS (SPINE): The bone mineral density of L1-L4 was assessed by dual-energy x-ray absorptiometry. The average bone mineral density within this region is 1.035 gm/sq-cm. This is 1.4 standard deviations above the mean of the average bone mineral density for age- and gender-matched subjects (the Z-score). It is 0.1 standard deviations below the mean peak bone mineral density in young adults (the T-score). FINDINGS (FEMORAL NECK): The bone mineral density of the left femoral neck was assessed by dual-energy x-ray absorptiometry. The average bone mineral density within the femoral neck region is 0.656 gm/sq-cm. This is 0.4 standard deviations below the mean of the average bone mineral density for age- and gender-matched subjects (the Z-score). It is 1.7 standard deviations below the mean peak bone mineral density in young adults (the T-score). FINDINGS (TOTAL HIP): The bone mineral density of the left hip was assessed by dual-energy x-ray absorptiometry. The average bone mineral density within the total hip region is 0.839 gm/sq-cm. This is 0.2 standard deviations above the mean of the average bone mineral density for age- and gender-matched subjects (the Z-score). It is 0.8 standard deviations below the mean peak bone mineral density in young adults (the T-score). SUMMARY OF CURRENT RESULTS: Region BMD T-score Z-score AP Spine (L1-L4) 1.035 -0.1 1.4 Femoral Neck (Left) 0.656 -1.7 -0.4 Total Hip (Left) 0.839 -0.8 0.2 IMPRESSION: - 1. The bone mineral density of the lumbar spine is normal. 2. The bone mineral density of the left femoral neck is mildly decreased. 3. The bone mineral density of the left total hip is normal. 4. Overall, the above findings are diagnostic of low bone mass (osteopenia) by WHO criteria. 5. Based on the FRAX fracture risk model, the 10-year probability for major osteoporotic fracture is 13% and that for hip fracture is 1.6%. This 10-year fracture risk estimate was calculated using the risk factors noted in the history above, along with the femoral neck bone density. FRAX is intended to help guide treatment decisions in men over age 50 and postmenopausal women with low bone mass (osteopenia). The National Osteoporosis Foundation (NOF) recommends that FDA-approved medical therapies be considered in postmenopausal women and men age 50 years and older with low bone mass whose 10-year fracture probability by FRAX is >= 20% for major osteoporotic fracture or >= 3% for hipfracture. However, all treatment decisions require clinical judgment and consideration of individual patient factors, including patient preferences, comorbidities, previous drug use, risk factors not captured in the FRAX model (e.g., frailty, falls, vitamin D deficiency, increased bone turnover, interval significant decline in bone density) and possible under- or overestimation of fracture risk by FRAX. General comments regarding interpretation of bone density measurements: a) In children, premenopausal woman and males under age 50 not at increased risk for fractures only Z-scores, not T-scores are used to indicate risk. A Z-score above -2.0 is defined as within the expected range for age and Z-score at or less than -2.0 is below the expected range for age. A Z-score below the expected range for age in a patient with recent fractures and/or chronic corticosteroid treatment is consistent with a diagnosis of osteoporosis. b) In post menopausal women and males over 50, comparison of the measured bone mineral density with the average value in young normal subjects (the T-score) has been found to be useful in assessing fracture risk. Fracture risk approximately doubles for each 1.0 standard deviation (SD) in individual's hip or spine bone mineral density is below the average value of young normal subjects. The World Health Organization (WHO) has defined T-scores of -1.0 to -2.5 as diagnostic of low bone mass (OSTEOPENIA), and T-scores of -2.5 or lower to be diagnostic of OSTEOPOROSIS, based on the site of lowest bone density. Note that there will be a change in reporting format and reference databases as patients move from the younger population (group a) to the older population (group b) The National Osteoporosis Foundation (www.nof.org) recommends adequate intake of calcium and vitamin D and regular weight-bearing exercise in all patients. They recommend pharmacologic treatment in postmenopausal women and men age 50 and older presenting with any of the followin) Osteoporosis, after appropriate evaluation to exclude secondary causes. 2) A hip or vertebral (clinical or radiographic) fracture,regardless of the bone density. 3) Low bone mass (Osteopenia) and one or more of: other prior fractures, secondary causes associated with high risk of fracture (such as glucocorticoid use or total immobilization), or computed high risk of fracture (10-yr probability of hip fracture >= 3% or a 10-yr probability of any major osteoporosis-related fracture >= 20% based on the [place].-adapted WHO algorithm), available at http://www.shef.ac.uk/FRAX). Requested By: Dictated By: CASH COTTER M.D. on Oct 26 2015 12:04P This document has been electronically signed by: SERA BARDALES M.D. on Oct 26 2015 5:17P [id number] Historical Provider MD GOTTLIEB DXA PROCEDURES Final Result from Last 3 Months or Most Recently Relevant to Health Maintenance Insurance [facility] MEDICARE ADVANTAGE [facility] MEDICARE ADVANT[facility] Address: [address] [address] [place] [address] Advance Directives For more information, please contact: [phone] * Full Code (Latest Code Status on File) Date Activated Date Inactivated Comments 08/29/2020 9:29 PM 09/01/2020 8:15 PM * Full Code Date Activated Date Inactivated Comments 07/15/2019 4:27 PM 07/16/2019 3:32 PM Care Teams Jacquard Card Lacer Relationship Specialty Start Date End Date Norm Lutz MD PCP - General Family Practice 07/17/23
--- OUTSIDE RECORDS SUMMARY | 2025-02-07 15:16 | XMS_ITS | Referral Summary ---
Author Organization [facility] [address] Address [address] [place] [address] Care Team Providers Care Information Officer Name Role Phone Norm Lutz MD Primary Care Provider [phone] Allergies No known active allergies Medications dextroamphetamine- [...] 08/30/2020 Assessment & Plan (08/30/2020 2:36 PM TAILER OUT): - Zofran PRN Pneumonia due to COVID-19 virus 08/29/2020 Assessment & Plan (08/30/2020 2:36 PM TAILER OUT): - COVID positive 08/24, CXR with bibasilar [...] 08/29/2020 Assessment & Plan (08/31/2020 1:51 PM TAILER OUT): - Na 131 --> 133, likely due to poor PO intake. - Continue to trend Anxiety and depression 08/29/2020 Assessment & Plan (08/30/2020 2:36 PM TAILER OUT): - No acute issues - Continue home Celexa 20mg daily ADHD 08/29/2020 Primary osteoarthritis of right hip 04/27/2019 Overview (04/27/2019): Added automatically from request for surgery [id number] Resolved Problems Problem Noted Date Diagnosed Date Resolved Date Elevated bilirubin 08/29/2020 Assessment & Plan (08/30/2020 2:36 PM TAILER OUT): - TB 1.3 on admission labs, likely [...] scular 05/25/2017,05/26/2016 Influenza, Unspecified 05/30/2014 Tdap 02/05/2016 Social History Tobacco Use Types Packs/Day Years Used Date Smoking Tobacco: Never Smokeless Tobacco: Never Tobacco Cessation:Counseling Given: Not Answered Alcohol Use Standard Drinks/Week Comments Yes 1 (1 standard drink = 0.6 oz pur e alcohol) social Comments No Sex and Gender Information Value Date Recorded Sex Assigned at Not on file Legal Sex Female 1:40 PM TAILER OUT Gender Identity Female 06/27/2022 12:43 AM TAILER OUT Sexual Orientation Straight 06/27/2022 12 :43 AM TAILER OUT Last Filed Vital Signs Vital Sign Reading Time Taken Comments Blood Pressure 127/80 07/25/2024 12:58 PM TAILER OUT Pulse 77 07/25/2024 12:58 PM TAILER OUT Temperature 36.6 C (97.9 F) 07/25/2024 12:58 PM TAILER OUT Respiratory Rate 18 07/20/2023 2:40 PM TAILER OUT Oxygen Saturation 99% 07/25/2024 12: 58 PM TAILER OUT Inhaled Oxygen Concentration - - Weight 57.6 kg (126 lb 14.4 oz) 025 12:58 PM TAILER OUT Height 167.6 cm (5' 5.98) 07/25/2024 1 2:58 PM TAILER OUT Body Mass Index 20.49 07/25/2024 12:58 PM TAILER OUT Plan of Treatment Not on file Medical Devices Implanted Type Area Benefits Assistant Device Identifier Shelf Expiration Date Model / Serial / Lot [employer] [id number] Procotyl Prime 54mm Shell Acetabular Sterile - Sn/A - [id number] Implanted:Qty: 1 on 07/15/2019 by Oz Loyd MD at [facility] Other - see comments Right: Hip [employer] [id number] 05/13/2027 [id number] / N/A / [id number] [employer] [id number] Procotyl Prime 36mm Liner Acetabular Sterile Latex Free - Sn/A - [id number] Implanted:Qty: 1 on 07/15/2019 by Oz Loyd MD at [facility] Other - see comments Right: Hip [employer] [id number] 05/13/2027 [id number] / N/A / [id number] Stem Profemur Tl2 Sz 8 Hip Standard Offset - Sn/A - [id number] Implanted:Qty: 1 on 07/15/2019 by Oz Loyd MD at [facility] Other - see comments Right: Hip [employer] [id number] 05/13/2027 [id number] / N/A / [id number] [employer] [id number] Procotyl 36mm 12/14 Medium Head Femoral Biolox Delta Sterile - Sn/A - [id number] Implanted:Qty: 1 on 07/15/2019 by Oz Loyd MD at [facility] Other - see comments Right: Hip [employer] [id number] 05/13/2027 [id number] / N/A / [id number] [employer] [id number] Dynasty Lineage 6.5mm 35mm Acetabular Screw Bone Biofoam - Sn/A - [id number] Implanted:Qty: 1 on 07/15/2019 by Oz Loyd MD at [facility] Screw Right: Hip [employer] [id number] 12/11/2024 [id number] / N/A / [id number] [employer] [id number] Dynasty Lineage 6.5mm 15mm Acetabular Screw Bone Biofoam - Sn/A - [id number] Implanted:Qty: 1 on 07/15/2019 by Oz Loyd MD at [facility] Screw Right: Hip [employer] [id number] 12/11/2025 [id number] / N/A / [id number] Hardware Right: Elbow Procedures Procedure Name Priority [...] BARDALES M.D. on Oct 26 2015 5:17P [id number] Procedure Note Provider, MD Manuela - 11/02/2016 [...] BARDALES M.D. on Oct 26 2015 5:17P [id number] us Historical Provider MD IMG DXA PROCEDURES Final Result from Last 3 Months or Most Recently Relevant to Health Maintenance Insurance [facility] [employer] [facility] Advance Directives For more information, please contact: [phone] * Full Code (Latest Code Status on File) Date Activated Date Inactivated Comments 08/29/2020 9:29 PM 09/01/2020 8:15 PM * Full Code Date Activated Date Inactivated Comments 07/15/2019 4:27 PM 07/16/2019 3:32 PM Care Teams Information Officer Relationship Specialty Start Date End Date Norm Lutz MD PCP - General Family Practice 07/17/23
== END 2025-02-07 15:12 | disposition home or self-care (01) ==
LOC: ANHIMG 15:13
PROVIDERS: PCP Family Medicine; Visit Provider Family Medicine
DX: Z12.31 Encounter for screening mammogram for malignant neoplasm of breast (principal)
CPT/HCPCS: 77063; 77067